=== PATIENT | male | born 1975 | race African-American/Black ===

== ENCOUNTER 2017-09-02 12:25 | Inpatient (IN) | payer SELFPAY ==
[~2017-09-02] VITALS: Ht 188 cm; Wt 90.7 kg
[~2017-09-02 12:25] MED LIST: INSU3INS6 SUBCUT; METO-396 PO
[2017-09-02 14:25] LABS: BASOPHILS % 1.8 % (0.0-2.0); EOSINOPHILS % 1.5 % (0.0-5.0); HEMATOCRIT. 25.6 % (42.0-52.0); HEMOGLOBIN. 8.4 g/dL (14.0-18.0); LYMPHOCYTES % 20.9 % (20.0-50.0); MEAN CORPUSCULAR HEMOGLOBIN 26.8 pg (28.0-32.0); MEAN CORPUSCULAR VOLUME 81.5 fL (80.0-94.0); MEAN PLATELET VOLUME 8.9 fl (7.4-10.4); MONOCYTES % 6.7 % (2.0-8.0); NEUTROPHILS % 69.1 % (40.0-76.0); PLATELET 221 x1000/uL (130-400); RED BLOOD CELL COUNT 3.14 mill/uL (4.7-6.1); RED CELL DISTRIBUTION WIDTH 12.9 % (11.6-14.6)
[2017-09-02 14:28] LABS: CHLORIDE 109 mEq/L (98-107)
[2017-09-02] MEDS ORDERED: SODIUM CHLORIDE 0.9% 1,000 ML IV ONE (15:15)
[2017-09-02] MEDS ORDERED: TRAMADOL 50MG TABLET PO PRN (15:30)
[2017-09-02] MEDS ORDERED: IPRATROPIUM/ALBUTEROL 0.5-3(2.5)MG/3ML NEB INH PRN (15:30)
[2017-09-02] MEDS ORDERED: CLONIDINE 0.1MG TABLET PO PRN (15:30)
[2017-09-02] MEDS ORDERED: ACETAMINOPHEN 325MG TABLET PO PRN (15:30)
[2017-09-02] MEDS ORDERED: DOCUSATE SODIUM 100MG CAPSULE PO PRN (15:30)
[2017-09-02] MEDS ORDERED: NA PHOS,M-B/NA PHOS,DI-BA ENEMA 118ML PR PRN (15:30)
[2017-09-02] MEDS ORDERED: NITROGLYCERIN 0.4MG TABLET SL SL PRN (15:30)
[2017-09-02] MEDS ORDERED: LORAZEPAM 0.5MG TABLET PO PRN (15:30)
[2017-09-02] MEDS ORDERED: DEXTROSE 50% WATER 50ML SYRINGE IV PRN (15:30)
[2017-09-02] MEDS ORDERED: GUAIFENESIN 200MG/10ML SUGAR FREE UDC PO PRN (15:30)
[2017-09-02] MEDS ORDERED: MAGNESIUM/ALUMINUM HYDROXIDE/SIMETHICONE 30ML UDC PO PRN (15:30)
[2017-09-02] MEDS ORDERED: ONDANSETRON HCL 4MG/2ML VIAL IV PRN (15:30)
[2017-09-02] MEDS ORDERED: DIPHENHYDRAMINE 50MG/ML VIAL IV PRN (15:30)
[2017-09-02 16:10] LABS: PHOSPHORUS 5.6 mg/dL (2.5-4.9)
[2017-09-02 16:39] LABS: VITAMIN B12 SERUM > 2000.0 pg/mL (211-911)
[2017-09-02] MEDS: SEVELAMER CARBONATE 800 MG TABLET PO SCH ×2 (17:00→17:50)
[2017-09-02] MEDS: BLOOD SUGAR DIAGNOSTIC STRIP TEST SCH ×2 (17:00→20:48)
[2017-09-02 17:35] VITALS: BP 165/79
[2017-09-02] MEDS: INSULIN LISPRO 100 UNITS/ML SUBCUT SCH ×2 (17:50→21:33)
[2017-09-02] MEDS ORDERED: REN800 PO (18:26)
[2017-09-02] MEDS ORDERED: PRO1 PO (18:26)
[2017-09-02 20:00] VITALS: BP 162/89
[2017-09-02] MEDS ORDERED: ENOXAPARIN 40MG/0.4ML SYR SUBCUT SCH (20:00)
[2017-09-02] MEDS: AMLODIPINE 10MG TABLET PO SCH (20:45)
[2017-09-02] MEDS: ENOXAPARIN 30MG/0.3ML SYR SUBCUT SCH (20:46)
[2017-09-02] MEDS ORDERED: ZOLPIDEM TARTRATE 5MG TABLET PO PRN (21:00)
[2017-09-02] MEDS ORDERED: METOPROLOL TARTRATE 25MG TABLET PO SCH (21:00)
[2017-09-02] MEDS: FAMOTIDINE 20MG TABLET PO SCH (21:00)
[2017-09-02] MEDS: HYDRALAZINE HCL 50MG TABLET PO SCH (21:39)
[2017-09-03] VITALS: BP 127/72
[2017-09-03 04:00] VITALS: BP 127/72
[2017-09-03] MEDS: HYDRALAZINE HCL 50MG TABLET PO SCH ×3 (05:48→21:19)
[2017-09-03] MEDS: BLOOD SUGAR DIAGNOSTIC STRIP TEST SCH ×4 (06:35→21:00)
[2017-09-03] MEDS: INSULIN LISPRO 100 UNITS/ML SUBCUT SCH ×4 (07:50→21:31)
[2017-09-03 08:00] VITALS: BP 133/71
[2017-09-03] MEDS: FAMOTIDINE 20MG TABLET PO SCH ×2 (10:00→21:19)
[2017-09-03] MEDS: SEVELAMER CARBONATE 800 MG TABLET PO SCH ×3 (10:00→18:03)
[2017-09-03] MEDS: FOLIC ACID/VITAMIN B COMP W-C TABLET PO SCH (10:01)
[2017-09-03] MEDS: AMLODIPINE 10MG TABLET PO SCH (10:01)
[2017-09-03 12:00] VITALS: BP 127/65
[2017-09-03 16:00] VITALS: BP 106/61
[2017-09-03 20:00] VITALS: BP 122/67
[2017-09-03] MEDS ORDERED: EPOETIN ALFA 10000UNITS/ML VIAL SUBCUT NR (21:00)
[2017-09-03] MEDS: ENOXAPARIN 30MG/0.3ML SYR SUBCUT SCH (21:20)
[2017-09-04] VITALS: BP 131/70
[2017-09-04 04:00] VITALS: BP 142/74
[2017-09-04 04:58] LABS: CLARITY URINE CLEAR (CLEAR); COLOR URINE YELLOW (YELLOW); KETONES URINE NEGATIVE (NEGATIVE); LEUKOCYTE ESTERASE URINE NEGATIVE (NEGATIVE); NITRITE URINE NEGATIVE (NEGATIVE); OCCULT BLOOD URINE NEGATIVE (NEGATIVE); PROTEIN URINE 4+ (NEGATIVE); SPECIFIC GRAVITY URINE 1.014 (1.005-1.030); UROBILINOGEN URINE 0.2 E.U./dL (0.2-1.0)
[2017-09-04] MEDS: HYDRALAZINE HCL 50MG TABLET PO SCH (05:39)
[2017-09-04 07:03] LABS: PARTIAL THROMBOPLASTIN TIME 27.5 sec (23.4-31.0); PROTHROMBIN TIME 10.8 sec (9.4-11.6)
[2017-09-04 07:32] LABS: PHOSPHORUS 4.9 mg/dL (2.5-4.9)
[2017-09-04 07:36] LABS: BASOPHILS % 1.4 % (0.0-2.0); EOSINOPHILS % 2.5 % (0.0-5.0); HEMATOCRIT. 25.1 % (42.0-52.0); HEMOGLOBIN. 8.2 g/dL (14.0-18.0); LYMPHOCYTES % 26.8 % (20.0-50.0); MEAN CORPUSCULAR HEMOGLOBIN 26.5 pg (28.0-32.0); MEAN CORPUSCULAR VOLUME 80.9 fL (80.0-94.0); MEAN PLATELET VOLUME 9.5 fl (7.4-10.4); MONOCYTES % 8.1 % (2.0-8.0); NEUTROPHILS % 61.2 % (40.0-76.0); PLATELET 229 x1000/uL (130-400); RED CELL DISTRIBUTION WIDTH 12.9 % (11.6-14.6)
[2017-09-04] MEDS: INSULIN LISPRO 100 UNITS/ML SUBCUT SCH (07:50)
[2017-09-04 08:00] VITALS: BP 131/67
[2017-09-04] MEDS: SEVELAMER CARBONATE 800 MG TABLET PO SCH (08:44)
[2017-09-04] MEDS: FAMOTIDINE 20MG TABLET PO SCH (08:44)
[2017-09-04] MEDS: FOLIC ACID/VITAMIN B COMP W-C TABLET PO SCH (08:44)
[2017-09-04] MEDS: AMLODIPINE 10MG TABLET PO SCH (08:44)
[2017-09-04] MEDS: BLOOD SUGAR DIAGNOSTIC STRIP TEST SCH (08:45)
[2017-09-04 11:56] VITALS: BP 130/61
== END 2017-09-04 13:30 | disposition home or self-care (01) | DRG 469 ==
LOC: ER 12:25 → 6WST 15:18 → EDBEDREQ 15:21 → SUPCPDRO 15:29 → ENRESERV 15:30 → 6WST 09-03 21:58
PROVIDERS: ADMIT Internal Medicine; ATTEND Internal Medicine
DX: N17.0 Acute kidney failure with tubular necrosis (principal); I12.0 Hypertensive chronic kidney disease with stage 5 chronic kidney disease or end stage renal disease; E11.21 Type 2 diabetes mellitus with diabetic nephropathy; E44.0 Moderate protein-calorie malnutrition; E11.22 Type 2 diabetes mellitus with diabetic chronic kidney disease; D64.9 Anemia, unspecified; J06.9 Acute upper respiratory infection, unspecified; H53.8 Other visual disturbances; N18.5 Chronic kidney disease, stage 5; E83.51 Hypocalcemia; Z83.3 Family history of diabetes mellitus; Z82.49 Family history of ischemic heart disease and other diseases of the circulatory system; Z68.25 Body mass index [BMI] 25.0-25.9, adult; Z88.8 Allergy status to other drugs, medicaments and biological substances
CPT/HCPCS: 36415; 71045; 76770; 80048; 80053; 80061; 81003; 82550; 82607; 82728; 82746; 82962; 83036; 83540; 83550; 83735; 84100; 85025; 85610; 85730; 93005; 93306; 93970; 99285; J0885; J1650; J1815; J7030

== ENCOUNTER 2018-02-19 20:20 | Inpatient (IN) | payer MEDICAID, OTHER ==
[~2018-02-19] VITALS: Ht 188 cm; Wt 93.4 kg
[~2018-02-19 20:20] MED LIST changes: -METO-396 PO; +PRO1 PO; +REN800 PO
[2018-02-19] MEDS ORDERED: IPRATROPIUM/ALBUTEROL 0.5-3(2.5)MG/3ML NEB HHN ONE (21:15)
[2018-02-19] MEDS ORDERED: ASPIRIN 81MG TABLET PO ONE (21:15)
[2018-02-19] MEDS ORDERED: FUROSEMIDE 40MG/4ML VIAL IV ONE (21:15)
[2018-02-19 21:42] LABS: CHLORIDE 94 mEq/L (98-107)
[2018-02-19 21:43] LABS: BASOPHILS % 1.1 % (0.0-2.0); EOSINOPHILS % 2.5 % (0.0-5.0); HEMATOCRIT. 26.4 % (42.0-52.0); HEMOGLOBIN. 8.9 g/dL (14.0-18.0); MEAN CORPUSCULAR HEMOGLOBIN 27.6 pg (28.0-32.0); MEAN CORPUSCULAR VOLUME 81.8 fL (80.0-94.0); MEAN PLATELET VOLUME 9.1 fl (7.4-10.4); MONOCYTES % 8.3 % (2.0-8.0); NEUTROPHILS % 76.1 % (40.0-76.0); PLATELET 254 x1000/uL (130-400); RED BLOOD CELL COUNT 3.22 mill/uL (4.7-6.1); RED CELL DISTRIBUTION WIDTH 13.6 % (11.6-14.6)
[2018-02-19 21:46] LABS: ETHANOL BLOOD < 10 mg/dL
[2018-02-19 21:48] LABS: INR 1.1; PARTIAL THROMBOPLASTIN TIME 29.7 sec (23.4-31.0); PROTHROMBIN TIME 10.6 sec (9.1-11.1)
[2018-02-20] MEDS ORDERED: NA PHOS,M-B/NA PHOS,DI-BA ENEMA 118ML PR PRN (00:30)
[2018-02-20] MEDS ORDERED: ACETAMINOPHEN 650MG SUPP PR PRN (00:30)
[2018-02-20] MEDS ORDERED: DEXTROSE 50% WATER 50ML SYRINGE IV PRN (00:30)
[2018-02-20] MEDS ORDERED: MAGNESIUM/ALUMINUM HYDROXIDE/SIMETHICONE 30ML UDC PO PRN (00:30)
[2018-02-20] MEDS ORDERED: ACETAMINOPHEN 650MG/20.3ML UDC GT PRN (00:30)
[2018-02-20] MEDS: CLONIDINE 0.1MG TABLET PO PRN ×2 (02:54→20:09)
[2018-02-20 04:00] VITALS: BP 146/101
[2018-02-20 04:55] LABS: CLARITY URINE CLEAR (CLEAR); COLOR URINE YELLOW (YELLOW); KETONES URINE NEGATIVE (NEGATIVE); LEUKOCYTE ESTERASE URINE NEGATIVE (NEGATIVE); NITRITE URINE NEGATIVE (NEGATIVE); OCCULT BLOOD URINE 1+ (NEGATIVE); PH URINE 6.5 (4.5-8.0); PROTEIN URINE 3+ (NEGATIVE); UROBILINOGEN URINE 0.2 E.U./dL (0.2-1.0)
[2018-02-20 05:13] LABS: *AMPHETAMINES SCREEN URINE NEGATIVE (NEGATIVE); *BARBITURATES SCREEN URINE NEGATIVE (NEGATIVE); *BENZODIAZEPINES SCREEN URINE NEGATIVE (NEGATIVE); *COCAINE SCREEN URINE NEGATIVE (NEGATIVE)
[2018-02-20 05:14] LABS: CANNABINOID URINE SCREEN NEGATIVE (NEGATIVE); METHADONE URINE SCREEN NEGATIVE (NEGATIVE); OPIATES URINE SCREEN NEGATIVE (NEGATIVE); PHENCYCLIDINE URINE SCREEN NEGATIVE (NEGATIVE)
[2018-02-20] MEDS: SODIUM CHLORIDE 0.9% INJ 3ML FLUSH IVF SCH ×3 (06:00→20:52)
[2018-02-20] MEDS: BLOOD SUGAR DIAGNOSTIC STRIP TEST SCH ×4 (06:50→20:48)
[2018-02-20] MEDS: INSULIN LISPRO 100 UNITS/ML SUBCUT SCH ×5 (06:50→20:53)
[2018-02-20 08:00] VITALS: BP 142/91
[2018-02-20] MEDS: CALCITRIOL 0.25MCG CAPSULE PO SCH (09:15)
[2018-02-20] MEDS: FOLIC ACID/VITAMIN B COMP W-C TABLET PO SCH (09:15)
[2018-02-20 10:00] VITALS: BP 142/91
[2018-02-20] MEDS ORDERED: LIDOCAINE HCL 1% 20ML VIAL (Pyxis) INJ ONE (10:13)
[2018-02-20 11:35] LABS: CREATINE KINASE MB FRACTION 2.7 ng/mL (0.5-3.6)
[2018-02-20 12:00] VITALS: BP 147/84
[2018-02-20] MEDS: CALCIUM ACETATE 667MG CAPSULE PO SCH ×2 (13:27→17:40)
[2018-02-20 16:00] VITALS: BP 177/95
[2018-02-20 17:31] LABS: CREATINE KINASE MB FRACTION 2.6 ng/mL (0.5-3.6)
[2018-02-20 20:00] VITALS: BP 183/95
[2018-02-20] MEDS: NIFEDIPINE XL 60MG TAB PO SCH (22:00)
[2018-02-20] MEDS ORDERED: DESMOPRESSIN ACETATE IVPB 24 MCG in SODIUM CHLORIDE 0.9% 50 ML IV SCH (23:00)
[2018-02-21] VITALS: BP 180/100
[2018-02-21] MEDS: CLONIDINE 0.1MG TABLET PO PRN ×2 (02:55→20:11)
[2018-02-21] MEDS: ACETAMINOPHEN 325MG TABLET PO PRN ×2 (03:56→20:11)
[2018-02-21 04:00] VITALS: BP 143/64
[2018-02-21] MEDS: BLOOD SUGAR DIAGNOSTIC STRIP TEST SCH ×4 (06:02→20:03)
[2018-02-21] MEDS: SODIUM CHLORIDE 0.9% INJ 3ML FLUSH IVF SCH ×3 (06:03→22:00)
[2018-02-21] MEDS: INSULIN LISPRO 100 UNITS/ML SUBCUT SCH ×4 (06:04→20:14)
[2018-02-21 06:43] LABS: BASOPHILS % 0.8 % (0.0-2.0); HEMATOCRIT. 22.9 % (42.0-52.0); HEMOGLOBIN. 7.9 g/dL (14.0-18.0); LYMPHOCYTES % 8.8 % (20.0-50.0); MEAN PLATELET VOLUME 9.6 fl (7.4-10.4); MONOCYTES % 9.4 % (2.0-8.0); PLATELET 234 x1000/uL (130-400); RED BLOOD CELL COUNT 2.83 mill/uL (4.7-6.1); RED CELL DISTRIBUTION WIDTH 13.7 % (11.6-14.6)
[2018-02-21 07:08] LABS: CHLORIDE 102 mEq/L (98-107)
[2018-02-21 07:35] LABS: HDL CHOLESTEROL 65 mg/dL (40-59)
[2018-02-21 07:36] LABS: LDL CHOLESTEROL 114 mg/dL (5-100)
[2018-02-21 08:00] VITALS: BP 130/65
[2018-02-21] MEDS: IPRATROPIUM/ALBUTEROL 0.5-3(2.5)MG/3ML NEB INH PRN (09:22)
[2018-02-21] MEDS: CALCITRIOL 0.25MCG CAPSULE PO SCH (09:49)
[2018-02-21] MEDS: FOLIC ACID/VITAMIN B COMP W-C TABLET PO SCH (09:49)
[2018-02-21] MEDS: CALCIUM ACETATE 667MG CAPSULE PO SCH ×3 (09:49→17:45)
[2018-02-21 12:00] VITALS: BP 158/84
[2018-02-21] MEDS: HYDROCODONE/ACETAMINOPHEN 5/325MG TABLET PO PRN (12:56)
[2018-02-21] MEDS: CEFTRIAXONE 1 G PREMIX 50 ML IV SCH (12:56)
[2018-02-21] MEDS ORDERED: SODIUM BICARBONATE 4% (2.4MEQ) 5ML VIAL IV ONE (15:31)
[2018-02-21] MEDS ORDERED: LIDOCAINE HCL 1% 20ML VIAL (Pyxis) INJ ONE (15:31)
[2018-02-21 16:40] VITALS: BP 156/84
[2018-02-21 20:00] VITALS: BP 170/83
[2018-02-21] MEDS: NIFEDIPINE XL 60MG TAB PO SCH (20:11)
[2018-02-22] VITALS: BP 163/77
[2018-02-22] MEDS: ALBUTEROL (0.083%) 2.5MG/3ML NEB HHN SCH ×4 (01:22→21:23)
[2018-02-22] MEDS: EPOETIN ALFA 4000UNITS/ML VIAL SUBCUT SCH (01:26)
[2018-02-22 04:00] VITALS: BP 148/73
[2018-02-22] MEDS: SODIUM CHLORIDE 0.9% INJ 3ML FLUSH IVF SCH ×3 (04:32→22:00)
[2018-02-22] MEDS: HYDROCODONE/ACETAMINOPHEN 5/325MG TABLET PO PRN ×2 (04:32→17:07)
[2018-02-22] MEDS: BLOOD SUGAR DIAGNOSTIC STRIP TEST SCH ×4 (06:30→21:04)
[2018-02-22 06:34] LABS: HEMATOCRIT. 21.4 % (42.0-52.0); HEMOGLOBIN. 7.2 g/dL (14.0-18.0); MEAN CORPUSCULAR HEMOGLOBIN 27.5 pg (28.0-32.0); MEAN CORPUSCULAR VOLUME 82.2 fL (80.0-94.0); MEAN PLATELET VOLUME 9.5 fl (7.4-10.4); PLATELET 210 x1000/uL (130-400); RED BLOOD CELL COUNT 2.61 mill/uL (4.7-6.1); RED CELL DISTRIBUTION WIDTH 13.1 % (11.6-14.6)
[2018-02-22] MEDS: INSULIN LISPRO 100 UNITS/ML SUBCUT SCH ×4 (06:41→21:15)
[2018-02-22 07:23] LABS: PLATELET ESTIMATE NORMAL
[2018-02-22 08:00] VITALS: BP 109/55
[2018-02-22] MEDS: CALCIUM ACETATE 667MG CAPSULE PO SCH ×3 (09:35→16:50)
[2018-02-22] MEDS: FOLIC ACID/VITAMIN B COMP W-C TABLET PO SCH (09:35)
[2018-02-22] MEDS: CALCITRIOL 0.25MCG CAPSULE PO SCH (09:35)
[2018-02-22 12:00] VITALS: BP 128/62
[2018-02-22] MEDS: CEFTRIAXONE 1 G PREMIX 50 ML IV SCH (12:06)
[2018-02-22 16:00] VITALS: BP 140/71
[2018-02-22] MEDS: IPRATROPIUM/ALBUTEROL 0.5-3(2.5)MG/3ML NEB INH PRN (17:39)
[2018-02-22 20:06] VITALS: BP 139/68
[2018-02-22] MEDS ORDERED: VANCOMYCIN 2,000 MG in DEXT 5% WATER 500 ML IV SCH (21:00)
[2018-02-22] MEDS: NIFEDIPINE XL 60MG TAB PO SCH (21:04)
[2018-02-23] VITALS (9 sets, daily range): BP systolic 124–160; BP diastolic 60–88
[2018-02-23] MEDS: DIPHENHYDRAMINE 50MG/ML VIAL IV PRN ×2 (00:19→23:22)
[2018-02-23] MEDS: ACETAMINOPHEN 325MG TABLET PO PRN ×3 (00:19→23:30)
[2018-02-23] MEDS: ALBUTEROL (0.083%) 2.5MG/3ML NEB HHN SCH ×4 (02:33→21:26)
[2018-02-23] MEDS: BLOOD SUGAR DIAGNOSTIC STRIP TEST SCH ×4 (06:25→21:02)
[2018-02-23] MEDS: INSULIN LISPRO 100 UNITS/ML SUBCUT SCH ×5 (06:26→21:30)
[2018-02-23] MEDS: SODIUM CHLORIDE 0.9% INJ 3ML FLUSH IVF SCH ×3 (06:28→21:03)
[2018-02-23 07:16] LABS: BASOPHILS % 1.3 % (0.0-2.0); EOSINOPHILS % 1.2 % (0.0-5.0); LYMPHOCYTES % 15.1 % (20.0-50.0); MEAN CORPUSCULAR HEMOGLOBIN 27.4 pg (28.0-32.0); MEAN CORPUSCULAR VOLUME 81.8 fL (80.0-94.0); MEAN PLATELET VOLUME 9.7 fl (7.4-10.4); MONOCYTES % 12.3 % (2.0-8.0); NEUTROPHILS % 70.1 % (40.0-76.0); PLATELET 218 x1000/uL (130-400); RED BLOOD CELL COUNT 2.45 mill/uL (4.7-6.1); RED CELL DISTRIBUTION WIDTH 13.2 % (11.6-14.6)
[2018-02-23 07:23] LABS: PHOSPHORUS 5.6 mg/dL (2.5-4.9)
[2018-02-23 07:41] LABS: HEMOGLOBIN. 6.7 g/dL (14.0-18.0)
[2018-02-23 07:42] LABS: HEMATOCRIT. 20.1 % (42.0-52.0)
[2018-02-23] MEDS: CALCITRIOL 0.25MCG CAPSULE PO SCH (08:29)
[2018-02-23] MEDS: CALCIUM ACETATE 667MG CAPSULE PO SCH ×3 (08:29→18:29)
[2018-02-23] MEDS: FOLIC ACID/VITAMIN B COMP W-C TABLET PO SCH (08:29)
[2018-02-23] MEDS: CEFTRIAXONE 1 G PREMIX 50 ML IV SCH (11:16)
[2018-02-23 13:23] LABS: HEMOGLOBIN 7.1 g/dL (14.0-18.0)
[2018-02-23] MEDS: DOCUSATE SODIUM 100MG CAPSULE PO PRN (15:14)
[2018-02-23] MEDS: CLONIDINE 0.1MG TABLET PO PRN (18:29)
[2018-02-23 20:26] LABS: HEMATOCRIT 22.7 % (42.0-52.0); HEMOGLOBIN 7.6 g/dL (14.0-18.0)
[2018-02-23] MEDS: NIFEDIPINE XL 60MG TAB PO SCH (21:02)
[2018-02-23] MEDS ORDERED: VANCOMYCIN 1500MG in DEXTROSE 5% WATER 250ML IV NR (22:00)
[2018-02-24] MEDS: ALBUTEROL (0.083%) 2.5MG/3ML NEB HHN SCH ×4 (01:00→20:56)
[2018-02-24 05:08] VITALS: BP 130/63
[2018-02-24 06:02] LABS: BASOPHILS % 1.2 % (0.0-2.0); LYMPHOCYTES % 15.1 % (20.0-50.0); MEAN CORPUSCULAR HEMOGLOBIN 27.2 pg (28.0-32.0); MEAN CORPUSCULAR VOLUME 82.3 fL (80.0-94.0); MEAN PLATELET VOLUME 9.4 fl (7.4-10.4); MONOCYTES % 12.7 % (2.0-8.0); PLATELET 248 x1000/uL (130-400); RED BLOOD CELL COUNT 2.92 mill/uL (4.7-6.1); RED CELL DISTRIBUTION WIDTH 13.4 % (11.6-14.6)
[2018-02-24] MEDS: INSULIN LISPRO 100 UNITS/ML SUBCUT SCH ×4 (06:17→21:18)
[2018-02-24] MEDS: SODIUM CHLORIDE 0.9% INJ 3ML FLUSH IVF SCH ×3 (06:17→21:18)
[2018-02-24] MEDS: BLOOD SUGAR DIAGNOSTIC STRIP TEST SCH ×4 (06:18→21:18)
[2018-02-24 06:31] LABS: PHOSPHORUS 5.5 mg/dL (2.5-4.9)
[2018-02-24] MEDS: CALCIUM ACETATE 667MG CAPSULE PO SCH ×3 (07:40→17:15)
[2018-02-24 08:00] VITALS: BP 128/70
[2018-02-24] MEDS: CALCITRIOL 0.25MCG CAPSULE PO SCH (09:01)
[2018-02-24] MEDS: FOLIC ACID/VITAMIN B COMP W-C TABLET PO SCH (09:01)
[2018-02-24] MEDS: CEFTRIAXONE 1 G PREMIX 50 ML IV SCH (11:40)
[2018-02-24] MEDS: ACETAMINOPHEN 325MG TABLET PO PRN (11:41)
[2018-02-24 12:00] VITALS: BP 143/69
[2018-02-24 15:54] LABS: HEPATITIS B SURFACE AB < 3.1 mIU/mL
[2018-02-24 16:00] VITALS: BP 144/71
[2018-02-24] MEDS ORDERED: NEPVIT PO (16:17)
[2018-02-24] MEDS ORDERED: ATOR10TA MT (16:17)
[2018-02-24] MEDS ORDERED: CALC0.253 PO (16:17)
[2018-02-24] MEDS ORDERED: CALC667C PO (16:17)
[2018-02-24 19:59] VITALS: BP 142/74
[2018-02-24] MEDS: DIPHENHYDRAMINE 50MG/ML VIAL IV PRN (21:17)
[2018-02-24] MEDS: NIFEDIPINE XL 60MG TAB PO SCH (21:17)
[2018-02-24] MEDS: EPOETIN ALFA 4000UNITS/ML VIAL SUBCUT SCH (21:17)
[2018-02-24 23:48] VITALS: BP 152/80
[2018-02-25] MEDS: DIPHENHYDRAMINE 50MG/ML VIAL IV PRN ×2 (02:10→23:51)
[2018-02-25] MEDS: ALBUTEROL (0.083%) 2.5MG/3ML NEB HHN SCH ×4 (02:10→21:00)
[2018-02-25 04:55] VITALS: BP 135/62
[2018-02-25] MEDS: INSULIN LISPRO 100 UNITS/ML SUBCUT SCH ×4 (06:19→20:44)
[2018-02-25] MEDS: SODIUM CHLORIDE 0.9% INJ 3ML FLUSH IVF SCH ×3 (06:19→20:44)
[2018-02-25] MEDS: BLOOD SUGAR DIAGNOSTIC STRIP TEST SCH ×4 (06:19→20:44)
[2018-02-25 07:31] LABS: BASOPHILS % 1.7 % (0.0-2.0); EOSINOPHILS % 4.6 % (0.0-5.0); HEMATOCRIT. 23.6 % (42.0-52.0); HEMOGLOBIN. 7.9 g/dL (14.0-18.0); LYMPHOCYTES % 13.7 % (20.0-50.0); MEAN CORPUSCULAR HEMOGLOBIN 27.4 pg (28.0-32.0); MEAN CORPUSCULAR VOLUME 81.8 fL (80.0-94.0); MEAN PLATELET VOLUME 9.5 fl (7.4-10.4); PLATELET 275 x1000/uL (130-400); RED BLOOD CELL COUNT 2.89 mill/uL (4.7-6.1); RED CELL DISTRIBUTION WIDTH 13.6 % (11.6-14.6)
[2018-02-25 08:00] VITALS: BP 140/74
[2018-02-25] MEDS: CALCITRIOL 0.25MCG CAPSULE PO SCH (08:02)
[2018-02-25] MEDS: CALCIUM ACETATE 667MG CAPSULE PO SCH ×3 (08:02→19:15)
[2018-02-25] MEDS: FOLIC ACID/VITAMIN B COMP W-C TABLET PO SCH (08:02)
[2018-02-25 08:20] LABS: PHOSPHORUS 6.4 mg/dL (2.5-4.9)
[2018-02-25] MEDS: CEFTRIAXONE 1 G PREMIX 50 ML IV SCH (10:20)
[2018-02-25 12:00] VITALS: BP 164/83
[2018-02-25 16:00] VITALS: BP 176/92
[2018-02-25] MEDS ORDERED: SEVELAMER CARBONATE 800 MG TABLET PO SCH (17:40)
[2018-02-25 19:58] VITALS: BP 186/89
[2018-02-25] MEDS: NIFEDIPINE XL 60MG TAB PO SCH (20:44)
[2018-02-25] MEDS ORDERED: VANCOMYCIN 750 MG PREMIX 150 ML IV SCH (21:00)
[2018-02-25] MEDS: ACETAMINOPHEN 325MG TABLET PO PRN (23:06)
[2018-02-25] MEDS: ONDANSETRON HCL 4MG/2ML INJ IV PRN (23:51)
[2018-02-26] VITALS: BP 174/100
[2018-02-26] MEDS: CLONIDINE 0.1MG TABLET PO PRN (00:38)
[2018-02-26] MEDS: ALBUTEROL (0.083%) 2.5MG/3ML NEB HHN SCH ×4 (01:06→21:18)
[2018-02-26 04:00] VITALS: BP 136/62
[2018-02-26] MEDS: ACETAMINOPHEN 325MG TABLET PO PRN ×3 (05:50→23:48)
[2018-02-26] MEDS: SODIUM CHLORIDE 0.9% INJ 3ML FLUSH IVF SCH ×3 (05:50→20:44)
[2018-02-26] MEDS: INSULIN LISPRO 100 UNITS/ML SUBCUT SCH ×4 (05:51→20:43)
[2018-02-26] MEDS: BLOOD SUGAR DIAGNOSTIC STRIP TEST SCH ×4 (05:51→20:44)
[2018-02-26 06:44] LABS: PHOSPHORUS 5.2 mg/dL (2.5-4.9)
[2018-02-26 06:45] LABS: BASOPHILS % 2.1 % (0.0-2.0); EOSINOPHILS % 5.7 % (0.0-5.0); HEMATOCRIT. 22.7 % (42.0-52.0); HEMOGLOBIN. 7.7 g/dL (14.0-18.0); LYMPHOCYTES % 7.8 % (20.0-50.0); MEAN CORPUSCULAR HEMOGLOBIN 27.7 pg (28.0-32.0); MEAN CORPUSCULAR VOLUME 81.9 fL (80.0-94.0); MEAN PLATELET VOLUME 9.2 fl (7.4-10.4); MONOCYTES % 12.9 % (2.0-8.0); NEUTROPHILS % 71.5 % (40.0-76.0); PLATELET 273 x1000/uL (130-400); RED BLOOD CELL COUNT 2.77 mill/uL (4.7-6.1); RED CELL DISTRIBUTION WIDTH 13.3 % (11.6-14.6)
[2018-02-26 08:00] VITALS: BP 125/57
[2018-02-26] MEDS: FOLIC ACID/VITAMIN B COMP W-C TABLET PO SCH (09:35)
[2018-02-26] MEDS: CALCITRIOL 0.25MCG CAPSULE PO SCH (09:36)
[2018-02-26] MEDS: CEFTRIAXONE 1 G PREMIX 50 ML IV SCH (11:54)
[2018-02-26 12:00] VITALS: BP 131/62
[2018-02-26] MEDS: CALCIUM ACETATE 667MG CAPSULE PO SCH ×2 (12:50→17:33)
[2018-02-26] MEDS: ONDANSETRON HCL 4MG/2ML INJ IV PRN ×2 (13:34→23:35)
[2018-02-26] MEDS: DIPHENHYDRAMINE 50MG/ML VIAL IV PRN ×2 (13:34→22:36)
[2018-02-26 16:30] VITALS: BP 130/56
[2018-02-26 20:00] VITALS: BP 160/78
[2018-02-26] MEDS: NIFEDIPINE XL 60MG TAB PO SCH (20:42)
[2018-02-26] MEDS ORDERED: EPOETIN ALFA 4000UNITS/ML VIAL SUBCUT SCH (21:00)
[2018-02-27] VITALS: BP 181/86
[2018-02-27] MEDS: ALBUTEROL (0.083%) 2.5MG/3ML NEB HHN SCH ×4 (02:13→20:21)
[2018-02-27 04:00] VITALS: BP 129/51
[2018-02-27] MEDS: GUAIFENESIN 200MG/10ML SUGAR FREE UDC PO PRN ×2 (05:25→09:23)
[2018-02-27] MEDS: ACETAMINOPHEN 325MG TABLET PO PRN ×2 (05:26→19:56)
[2018-02-27] MEDS: SODIUM CHLORIDE 0.9% INJ 3ML FLUSH IVF SCH ×3 (05:26→21:30)
[2018-02-27] MEDS: INSULIN LISPRO 100 UNITS/ML SUBCUT SCH ×4 (06:26→21:30)
[2018-02-27] MEDS: BLOOD SUGAR DIAGNOSTIC STRIP TEST SCH ×4 (06:26→21:30)
[2018-02-27 06:41] LABS: HEMATOCRIT. 22.7 % (42.0-52.0); HEMOGLOBIN. 7.6 g/dL (14.0-18.0); MEAN CORPUSCULAR HEMOGLOBIN 27.2 pg (28.0-32.0); MEAN CORPUSCULAR VOLUME 81.6 fL (80.0-94.0); MEAN PLATELET VOLUME 9.1 fl (7.4-10.4); PLATELET 263 x1000/uL (130-400); RED BLOOD CELL COUNT 2.78 mill/uL (4.7-6.1); RED CELL DISTRIBUTION WIDTH 13.2 % (11.6-14.6)
[2018-02-27 07:24] LABS: HEPATITIS B SURFACE ANTIGEN NEGATIVE
[2018-02-27 08:19] VITALS: BP 134/67
[2018-02-27] MEDS: FOLIC ACID/VITAMIN B COMP W-C TABLET PO SCH (09:23)
[2018-02-27] MEDS: CALCITRIOL 0.25MCG CAPSULE PO SCH (09:23)
[2018-02-27] MEDS: CALCIUM ACETATE 667MG CAPSULE PO SCH ×3 (09:23→17:29)
[2018-02-27] MEDS: GUAIFENESIN/DM 600MG/30MG ER TAB 12HR PO SCH ×2 (09:47→20:02)
[2018-02-27 10:35] LABS: ATYPICAL LYMPHOCYTES 1; PLATELET ESTIMATE NORMAL
[2018-02-27] MEDS: CLONIDINE 0.1MG TABLET PO PRN (12:55)
[2018-02-27] MEDS: AZITHROMYCIN 500 MG TABLET PO SCH (12:55)
[2018-02-27 16:45] VITALS: BP 166/89
[2018-02-27] MEDS: DOCUSATE SODIUM 100MG CAPSULE PO PRN (17:29)
[2018-02-27 20:00] VITALS: BP 134/74
[2018-02-27] MEDS: NIFEDIPINE XL 60MG TAB PO SCH (20:02)
[2018-02-28] VITALS: BP 149/77
[2018-02-28] MEDS: ALBUTEROL (0.083%) 2.5MG/3ML NEB HHN SCH ×4 (00:09→21:48)
[2018-02-28 04:00] VITALS: BP 160/84
[2018-02-28] MEDS: DOCUSATE SODIUM 100MG CAPSULE PO PRN ×2 (04:47→18:29)
[2018-02-28] MEDS: SODIUM CHLORIDE 0.9% INJ 3ML FLUSH IVF SCH ×3 (05:37→22:14)
[2018-02-28] MEDS: BLOOD SUGAR DIAGNOSTIC STRIP TEST SCH ×4 (06:17→20:28)
[2018-02-28] MEDS: INSULIN LISPRO 100 UNITS/ML SUBCUT SCH ×4 (06:17→20:29)
[2018-02-28 06:49] LABS: HEMATOCRIT. 24.7 % (42.0-52.0); HEMOGLOBIN. 8.2 g/dL (14.0-18.0); MEAN CORPUSCULAR HEMOGLOBIN 27.6 pg (28.0-32.0); MEAN PLATELET VOLUME 8.9 fl (7.4-10.4); PLATELET 305 x1000/uL (130-400); RED BLOOD CELL COUNT 2.98 mill/uL (4.7-6.1); RED CELL DISTRIBUTION WIDTH 13.7 % (11.6-14.6)
[2018-02-28 07:00] LABS: INR 1.1; PARTIAL THROMBOPLASTIN TIME 30.4 sec (23.4-31.0); PROTHROMBIN TIME 10.7 sec (9.1-11.1)
[2018-02-28 07:10] LABS: CHLORIDE 101 mEq/L (98-107)
[2018-02-28 08:28] VITALS: BP 170/82
[2018-02-28] MEDS: AZITHROMYCIN 500 MG TABLET PO SCH (08:37)
[2018-02-28] MEDS: CALCITRIOL 0.25MCG CAPSULE PO SCH (08:37)
[2018-02-28] MEDS: CALCIUM ACETATE 667MG CAPSULE PO SCH ×3 (08:37→16:55)
[2018-02-28] MEDS: GUAIFENESIN/DM 600MG/30MG ER TAB 12HR PO SCH ×2 (08:37→20:28)
[2018-02-28] MEDS: ACETAMINOPHEN 325MG TABLET PO PRN ×2 (08:37→20:26)
[2018-02-28] MEDS: CLONIDINE 0.1MG TABLET PO PRN ×2 (08:37→20:28)
[2018-02-28] MEDS: FOLIC ACID/VITAMIN B COMP W-C TABLET PO SCH (08:37)
[2018-02-28] MEDS ORDERED: SORBITOL 70% SOLN 30ML PO NR (09:45)
[2018-02-28 09:59] VITALS: BP 125/57
[2018-02-28] MEDS ORDERED: LIDOCAINE HCL 1% 20ML VIAL (Pyxis) INJ ONE (10:53)
[2018-02-28] MEDS ORDERED: LIDOCAINE HCL/EPINEPHRINE 1%-EPI 1:100,000 20 ML VIAL ONE (10:53)
[2018-02-28] MEDS ORDERED: HEPARIN 1000 UNITS/ML 10ML ONE (10:54)
[2018-02-28 13:29] LABS: PLATELET ESTIMATE NORMAL
[2018-02-28] MEDS ORDERED: CEFAZOLIN 1000MG PREMIX 50 ML IV NR (13:30)
[2018-02-28] MEDS: GUAIFENESIN/CODEINE 100-10MG/5ML UDC PO PRN (15:15)
[2018-02-28 16:00] VITALS: BP 150/87
[2018-02-28] MEDS: CLONIDINE 0.1MG TABLET PO SCH (16:56)
[2018-02-28 20:00] VITALS: BP 189/99
[2018-02-28] MEDS: NIFEDIPINE XL 60MG TAB PO SCH (20:27)
[2018-02-28] MEDS: EPOETIN ALFA 4000UNITS/ML VIAL SUBCUT SCH (20:29)
[2018-02-28] MEDS: DIPHENHYDRAMINE 50MG/ML VIAL IV PRN (22:14)
[2018-03-01] VITALS: BP 185/97
[2018-03-01] MEDS: ALBUTEROL (0.083%) 2.5MG/3ML NEB HHN SCH ×4 (01:19→20:49)
[2018-03-01 04:00] VITALS: BP 140/84
[2018-03-01] MEDS: SODIUM CHLORIDE 0.9% INJ 3ML FLUSH IVF SCH ×3 (06:35→21:03)
[2018-03-01] MEDS: INSULIN LISPRO 100 UNITS/ML SUBCUT SCH ×2 (06:36→21:04)
[2018-03-01] MEDS: ACETAMINOPHEN 325MG TABLET PO PRN ×2 (06:36→21:01)
[2018-03-01] MEDS: BLOOD SUGAR DIAGNOSTIC STRIP TEST SCH ×2 (06:36→21:03)
[2018-03-01 08:00] VITALS: BP 157/60
[2018-03-01 08:00] LABS: BASOPHILS % 2.3 % (0.0-2.0); EOSINOPHILS % 2.2 % (0.0-5.0); HEMATOCRIT. 25.4 % (42.0-52.0); HEMOGLOBIN. 8.4 g/dL (14.0-18.0); LYMPHOCYTES % 14.3 % (20.0-50.0); MEAN CORPUSCULAR HEMOGLOBIN 27.6 pg (28.0-32.0); MEAN PLATELET VOLUME 9.1 fl (7.4-10.4); MONOCYTES % 12.3 % (2.0-8.0); NEUTROPHILS % 68.9 % (40.0-76.0); PLATELET 319 x1000/uL (130-400); RED BLOOD CELL COUNT 3.06 mill/uL (4.7-6.1); RED CELL DISTRIBUTION WIDTH 13.4 % (11.6-14.6)
[2018-03-01] MEDS: DOCUSATE SODIUM 100MG CAPSULE PO SCH ×2 (10:17→16:24)
[2018-03-01] MEDS: FOLIC ACID/VITAMIN B COMP W-C TABLET PO SCH (10:17)
[2018-03-01] MEDS: CLONIDINE 0.1MG TABLET PO SCH ×3 (10:18→21:02)
[2018-03-01] MEDS: AZITHROMYCIN 500 MG TABLET PO SCH (10:18)
[2018-03-01] MEDS: GUAIFENESIN/DM 600MG/30MG ER TAB 12HR PO SCH ×2 (10:18→21:02)
[2018-03-01] MEDS: CALCIUM ACETATE 667MG CAPSULE PO SCH ×2 (10:19→16:23)
[2018-03-01] MEDS: CALCITRIOL 0.25MCG CAPSULE PO SCH (10:19)
[2018-03-01] MEDS ORDERED: SORBITOL 70% SOLN 30ML PO SCH (11:00)
[2018-03-01 11:22] LABS: PHOSPHORUS 5.4 mg/dL (2.5-4.9)
[2018-03-01 12:00] VITALS: BP 150/60
[2018-03-01 13:10] LABS: QFT MITOGEN VALUE 0.75 IU/mL (.); QFT TB GOLD PLUS Negative (Negative); QFT TB1 AG VALUE 0.17 IU/mL (.)
[2018-03-01 16:00] VITALS: BP 156/62
[2018-03-01 20:00] VITALS: BP 145/81
[2018-03-01] MEDS ORDERED: DEXTROSE 50% WATER 50ML SYRINGE IV PRN (21:00)
[2018-03-01] MEDS: NIFEDIPINE XL 60MG TAB PO SCH (21:02)
[2018-03-02] VITALS (7 sets, daily range): BP systolic 125–150; BP diastolic 58–79
[2018-03-02] MEDS: ALBUTEROL (0.083%) 2.5MG/3ML NEB HHN SCH ×4 (01:26→20:16)
[2018-03-02] MEDS: DIPHENHYDRAMINE 50MG/ML VIAL IV PRN ×2 (01:47→23:13)
[2018-03-02] MEDS: CLONIDINE 0.1MG TABLET PO SCH ×2 (06:19→09:51)
[2018-03-02] MEDS: SODIUM CHLORIDE 0.9% INJ 3ML FLUSH IVF SCH ×3 (06:19→21:40)
[2018-03-02] MEDS: BLOOD SUGAR DIAGNOSTIC STRIP TEST SCH ×2 (06:20→21:30)
[2018-03-02] MEDS: INSULIN LISPRO 100 UNITS/ML SUBCUT SCH ×4 (06:30→21:37)
[2018-03-02] MEDS: GUAIFENESIN/DM 600MG/30MG ER TAB 12HR PO SCH ×2 (09:49→21:29)
[2018-03-02] MEDS: AZITHROMYCIN 500 MG TABLET PO SCH (09:49)
[2018-03-02] MEDS: FOLIC ACID/VITAMIN B COMP W-C TABLET PO SCH (09:50)
[2018-03-02] MEDS: CALCITRIOL 0.25MCG CAPSULE PO SCH (09:50)
[2018-03-02] MEDS: DOCUSATE SODIUM 100MG CAPSULE PO SCH ×2 (09:50→17:50)
[2018-03-02] MEDS: IPRATROPIUM/ALBUTEROL 0.5-3(2.5)MG/3ML NEB INH PRN (09:56)
[2018-03-02] MEDS: DILTIAZEM HCL 60MG TABLET PO SCH ×2 (18:24→21:29)
[2018-03-02] MEDS: HYDRALAZINE HCL 100MG TABLET PO SCH (21:30)
[2018-03-03] VITALS: BP 121/74
[2018-03-03] MEDS: GUAIFENESIN/CODEINE 100-10MG/5ML UDC PO PRN (01:36)
[2018-03-03] MEDS: ALBUTEROL (0.083%) 2.5MG/3ML NEB HHN SCH ×4 (01:54→21:22)
[2018-03-03 04:00] VITALS: BP 130/80
[2018-03-03] MEDS: DILTIAZEM HCL 60MG TABLET PO SCH ×3 (06:34→22:05)
[2018-03-03] MEDS: SODIUM CHLORIDE 0.9% INJ 3ML FLUSH IVF SCH ×3 (06:34→22:09)
[2018-03-03] MEDS: BLOOD SUGAR DIAGNOSTIC STRIP TEST SCH ×4 (06:35→21:00)
[2018-03-03] MEDS: INSULIN LISPRO 100 UNITS/ML SUBCUT SCH ×4 (06:35→22:07)
[2018-03-03 07:54] LABS: BASOPHILS % 1.6 % (0.0-2.0); EOSINOPHILS % 5.4 % (0.0-5.0); HEMOGLOBIN. 7.2 g/dL (14.0-18.0); LYMPHOCYTES % 24.7 % (20.0-50.0); MEAN CORPUSCULAR HEMOGLOBIN 27.1 pg (28.0-32.0); MEAN PLATELET VOLUME 8.8 fl (7.4-10.4); MONOCYTES % 10.1 % (2.0-8.0); NEUTROPHILS % 58.2 % (40.0-76.0); PLATELET 289 x1000/uL (130-400); RED BLOOD CELL COUNT 2.65 mill/uL (4.7-6.1); RED CELL DISTRIBUTION WIDTH 14.1 % (11.6-14.6)
[2018-03-03 08:15] VITALS: BP 155/89
[2018-03-03 08:15] LABS: PHOSPHORUS 6.7 mg/dL (2.5-4.9)
[2018-03-03] MEDS: HYDRALAZINE HCL 100MG TABLET PO SCH ×2 (08:42→22:05)
[2018-03-03] MEDS: AZITHROMYCIN 500 MG TABLET PO SCH (09:04)
[2018-03-03] MEDS: DOCUSATE SODIUM 100MG CAPSULE PO SCH ×2 (09:04→17:42)
[2018-03-03] MEDS: CALCITRIOL 0.25MCG CAPSULE PO SCH (09:04)
[2018-03-03] MEDS: GUAIFENESIN/DM 600MG/30MG ER TAB 12HR PO SCH ×2 (09:04→22:09)
[2018-03-03] MEDS: FOLIC ACID/VITAMIN B COMP W-C TABLET PO SCH (09:04)
[2018-03-03] MEDS: CALCIUM ACETATE 667MG CAPSULE PO SCH ×4 (09:05→17:41)
[2018-03-03 11:58] VITALS: BP 147/78
[2018-03-03] MEDS ORDERED: HEPARIN SODIUM 1,000 UNIT/1ML VIAL IV NR (14:45)
[2018-03-03 16:00] VITALS: BP 141/61
[2018-03-03 20:00] VITALS: BP 162/90
[2018-03-03] MEDS: EPOETIN ALFA 4000UNITS/ML VIAL SUBCUT SCH (22:06)
[2018-03-04] VITALS: BP 125/60
[2018-03-04] MEDS: DIPHENHYDRAMINE 50MG/ML VIAL IV PRN ×3 (01:04→23:43)
[2018-03-04] MEDS: ALBUTEROL (0.083%) 2.5MG/3ML NEB HHN SCH ×4 (01:19→20:24)
[2018-03-04 04:00] VITALS: BP 166/85
[2018-03-04] MEDS: DILTIAZEM HCL 60MG TABLET PO SCH ×2 (05:22→14:00)
[2018-03-04] MEDS: SODIUM CHLORIDE 0.9% INJ 3ML FLUSH IVF SCH ×3 (05:22→21:25)
[2018-03-04] MEDS: BLOOD SUGAR DIAGNOSTIC STRIP TEST SCH ×4 (06:05→20:49)
[2018-03-04] MEDS: INSULIN LISPRO 100 UNITS/ML SUBCUT SCH ×4 (06:06→21:33)
[2018-03-04 07:08] LABS: BASOPHILS % 1.5 % (0.0-2.0); EOSINOPHILS % 3.9 % (0.0-5.0); HEMATOCRIT. 23.1 % (42.0-52.0); HEMOGLOBIN. 7.7 g/dL (14.0-18.0); LYMPHOCYTES % 17.7 % (20.0-50.0); MEAN CORPUSCULAR HEMOGLOBIN 27.4 pg (28.0-32.0); MEAN CORPUSCULAR VOLUME 82.2 fL (80.0-94.0); MEAN PLATELET VOLUME 8.8 fl (7.4-10.4); MONOCYTES % 9.5 % (2.0-8.0); NEUTROPHILS % 67.4 % (40.0-76.0); PLATELET 350 x1000/uL (130-400); RED BLOOD CELL COUNT 2.81 mill/uL (4.7-6.1)
[2018-03-04 08:00] VITALS: BP 157/80
[2018-03-04] MEDS: CALCITRIOL 0.25MCG CAPSULE PO SCH (08:50)
[2018-03-04] MEDS: GUAIFENESIN/DM 600MG/30MG ER TAB 12HR PO SCH ×2 (08:50→21:25)
[2018-03-04] MEDS: FOLIC ACID/VITAMIN B COMP W-C TABLET PO SCH (08:50)
[2018-03-04] MEDS: CALCIUM ACETATE 667MG CAPSULE PO SCH ×4 (08:51→17:40)
[2018-03-04] MEDS: DOCUSATE SODIUM 100MG CAPSULE PO SCH ×2 (08:51→17:00)
[2018-03-04] MEDS: HYDRALAZINE HCL 100MG TABLET PO SCH ×2 (08:51→21:26)
[2018-03-04] MEDS: AZITHROMYCIN 500 MG TABLET PO SCH (08:51)
[2018-03-04 12:00] VITALS: BP 123/75
[2018-03-04 16:00] VITALS: BP 167/82
[2018-03-04] MEDS: FUROSEMIDE 40MG TABLET PO SCH (17:42)
[2018-03-04] MEDS: GUAIFENESIN/CODEINE 100-10MG/5ML UDC PO PRN (17:42)
[2018-03-04 20:00] VITALS: BP 154/71
[2018-03-04] MEDS ORDERED: DILTIAZEM HCL 300MG CAPSULE SR 24HR PO SCH (21:00)
[2018-03-04] MEDS: DOCUSATE SODIUM 100MG CAPSULE PO PRN (21:25)
[2018-03-05] VITALS: BP 149/65
[2018-03-05] MEDS: ALBUTEROL (0.083%) 2.5MG/3ML NEB HHN SCH ×4 (01:54→22:38)
[2018-03-05 04:00] VITALS: BP 149/63
[2018-03-05] MEDS: BLOOD SUGAR DIAGNOSTIC STRIP TEST SCH ×4 (05:47→20:47)
[2018-03-05] MEDS: INSULIN LISPRO 100 UNITS/ML SUBCUT SCH ×4 (05:48→21:44)
[2018-03-05] MEDS: SODIUM CHLORIDE 0.9% INJ 3ML FLUSH IVF SCH ×3 (05:48→21:40)
[2018-03-05 07:29] LABS: BASOPHILS % 1.5 % (0.0-2.0); EOSINOPHILS % 3.2 % (0.0-5.0); HEMATOCRIT. 24.2 % (42.0-52.0); HEMOGLOBIN. 7.9 g/dL (14.0-18.0); LYMPHOCYTES % 13.5 % (20.0-50.0); MEAN CORPUSCULAR HEMOGLOBIN 26.8 pg (28.0-32.0); MEAN CORPUSCULAR VOLUME 82.5 fL (80.0-94.0); NEUTROPHILS % 72.8 % (40.0-76.0); PLATELET 384 x1000/uL (130-400); RED BLOOD CELL COUNT 2.93 mill/uL (4.7-6.1); RED CELL DISTRIBUTION WIDTH 14.3 % (11.6-14.6)
[2018-03-05] MEDS: CALCIUM ACETATE 667MG CAPSULE PO SCH ×3 (07:40→16:49)
[2018-03-05 08:00] VITALS: BP 161/77
[2018-03-05] MEDS: HYDRALAZINE HCL 100MG TABLET PO SCH ×2 (08:45→11:40)
[2018-03-05] MEDS ORDERED: SORBITOL 70% SOLN 30ML PO ONE (08:45)
[2018-03-05] MEDS: DOCUSATE SODIUM 100MG CAPSULE PO SCH ×2 (08:46→16:48)
[2018-03-05] MEDS: FUROSEMIDE 40MG TABLET PO SCH (08:46)
[2018-03-05] MEDS: FOLIC ACID/VITAMIN B COMP W-C TABLET PO SCH (08:46)
[2018-03-05] MEDS: GUAIFENESIN/DM 600MG/30MG ER TAB 12HR PO SCH ×2 (08:46→20:39)
[2018-03-05] MEDS: CALCITRIOL 0.25MCG CAPSULE PO SCH (08:47)
[2018-03-05] MEDS ORDERED: SORBITOL 70% SOLN 30ML PO NR (09:15)
[2018-03-05 09:58] LABS: PHOSPHORUS 4.9 mg/dL (2.5-4.9)
[2018-03-05 10:07] VITALS: BP 161/77
[2018-03-05 12:17] VITALS: BP 167/78
[2018-03-05 20:00] VITALS: BP 148/77
[2018-03-05] MEDS ORDERED: DILTIAZEM HCL 180MG CAPSULE CD 24HR PO SCH (21:00)
[2018-03-05] MEDS: ACETAMINOPHEN 325MG TABLET PO PRN (22:08)
[2018-03-05] MEDS: DIPHENHYDRAMINE 50MG/ML VIAL IV PRN (22:09)
[2018-03-05] MEDS ORDERED: EPOETIN ALFA 4000UNITS/ML VIAL SUBCUT SCH (23:00)
[2018-03-06] VITALS: BP 163/77
[2018-03-06] MEDS: CLONIDINE 0.1MG TABLET PO PRN (00:46)
[2018-03-06] MEDS: ALBUTEROL (0.083%) 2.5MG/3ML NEB HHN SCH ×4 (02:45→19:58)
[2018-03-06 04:00] VITALS: BP 146/64
[2018-03-06] MEDS: SODIUM CHLORIDE 0.9% INJ 3ML FLUSH IVF SCH ×3 (05:55→21:20)
[2018-03-06] MEDS: BLOOD SUGAR DIAGNOSTIC STRIP TEST SCH (06:30)
[2018-03-06] MEDS: INSULIN LISPRO 100 UNITS/ML SUBCUT SCH (06:58)
[2018-03-06 08:00] VITALS: BP 155/79
[2018-03-06] MEDS: GUAIFENESIN/DM 600MG/30MG ER TAB 12HR PO SCH ×2 (09:00→20:34)
[2018-03-06] MEDS ORDERED: SORBITOL 70% SOLN 30ML PO NR (09:15)
[2018-03-06] MEDS: ACETAMINOPHEN 325MG TABLET PO PRN (09:38)
[2018-03-06] MEDS: HYDRALAZINE HCL 100MG TABLET PO SCH ×2 (09:38→20:35)
[2018-03-06] MEDS: CALCITRIOL 0.25MCG CAPSULE PO SCH (09:38)
[2018-03-06] MEDS: FUROSEMIDE 40MG TABLET PO SCH (09:39)
[2018-03-06] MEDS: DOCUSATE SODIUM 100MG CAPSULE PO SCH ×2 (09:39→18:18)
[2018-03-06] MEDS: FOLIC ACID/VITAMIN B COMP W-C TABLET PO SCH (09:40)
[2018-03-06] MEDS: DILTIAZEM HCL 120MG CAPSULE CD 24HR PO SCH ×2 (12:00→20:36)
[2018-03-06] MEDS: CALCIUM ACETATE 667MG CAPSULE PO SCH ×2 (12:40→18:18)
[2018-03-06] MEDS ORDERED: CALCIUM ACETATE 667MG CAPSULE PO SCH (12:40)
[2018-03-06 18:38] VITALS: BP 149/77
[2018-03-06 20:00] VITALS: BP 132/83
[2018-03-07] VITALS: BP 138/67
[2018-03-07] MEDS: DIPHENHYDRAMINE 50MG/ML VIAL IV PRN (00:18)
[2018-03-07] MEDS: ALBUTEROL (0.083%) 2.5MG/3ML NEB HHN SCH ×4 (02:03→22:14)
[2018-03-07 04:00] VITALS: BP 145/65
[2018-03-07] MEDS: SODIUM CHLORIDE 0.9% INJ 3ML FLUSH IVF SCH ×3 (06:09→21:00)
[2018-03-07 06:33] LABS: BASOPHILS % 1.3 % (0.0-2.0); EOSINOPHILS % 3.6 % (0.0-5.0); HEMATOCRIT. 21.4 % (42.0-52.0); HEMOGLOBIN. 7.2 g/dL (14.0-18.0); LYMPHOCYTES % 19.1 % (20.0-50.0); MEAN CORPUSCULAR HEMOGLOBIN 27.8 pg (28.0-32.0); MEAN CORPUSCULAR VOLUME 83.1 fL (80.0-94.0); MEAN PLATELET VOLUME 8.8 fl (7.4-10.4); MONOCYTES % 9.7 % (2.0-8.0); NEUTROPHILS % 66.3 % (40.0-76.0); PLATELET 373 x1000/uL (130-400); RED BLOOD CELL COUNT 2.58 mill/uL (4.7-6.1); RED CELL DISTRIBUTION WIDTH 14.6 % (11.6-14.6)
[2018-03-07 06:38] LABS: CHLORIDE 100 mEq/L (98-107)
[2018-03-07 06:54] LABS: PHOSPHORUS 5.8 mg/dL (2.5-4.9)
[2018-03-07 08:00] VITALS: BP 143/63
[2018-03-07] MEDS: CALCITRIOL 0.25MCG CAPSULE PO SCH (08:26)
[2018-03-07] MEDS: FUROSEMIDE 40MG TABLET PO SCH (08:26)
[2018-03-07] MEDS: GUAIFENESIN/DM 600MG/30MG ER TAB 12HR PO SCH ×2 (08:27→20:58)
[2018-03-07] MEDS: DOCUSATE SODIUM 100MG CAPSULE PO SCH ×2 (08:27→17:06)
[2018-03-07] MEDS: CALCIUM ACETATE 667MG CAPSULE PO SCH ×3 (08:27→17:06)
[2018-03-07] MEDS: FOLIC ACID/VITAMIN B COMP W-C TABLET PO SCH (08:27)
[2018-03-07] MEDS: HYDRALAZINE HCL 100MG TABLET PO SCH ×2 (08:27→20:59)
[2018-03-07] MEDS: ENOXAPARIN 30MG/0.3ML SYR SUBCUT SCH (09:00)
[2018-03-07] MEDS: DILTIAZEM HCL 120MG CAPSULE CD 24HR PO SCH ×2 (09:00→21:00)
[2018-03-07 12:00] VITALS: BP 164/87
[2018-03-07 16:39] VITALS: BP 166/85
[2018-03-07 20:00] VITALS: BP 139/80
[2018-03-08] MEDS: DIPHENHYDRAMINE 50MG/ML VIAL IV PRN ×2 (00:27→22:06)
[2018-03-08] MEDS: ALBUTEROL (0.083%) 2.5MG/3ML NEB HHN SCH ×4 (01:43→21:39)
[2018-03-08 04:00] VITALS: BP 145/98
[2018-03-08] MEDS: SODIUM CHLORIDE 0.9% INJ 3ML FLUSH IVF SCH ×3 (06:00→20:41)
[2018-03-08 06:43] LABS: BASOPHILS % 1.8 % (0.0-2.0); EOSINOPHILS % 3.7 % (0.0-5.0); HEMATOCRIT. 21.8 % (42.0-52.0); HEMOGLOBIN. 7.5 g/dL (14.0-18.0); LYMPHOCYTES % 20.8 % (20.0-50.0); MEAN CORPUSCULAR HEMOGLOBIN 28.2 pg (28.0-32.0); MEAN CORPUSCULAR VOLUME 82.7 fL (80.0-94.0); MEAN PLATELET VOLUME 8.5 fl (7.4-10.4); MONOCYTES % 10.8 % (2.0-8.0); NEUTROPHILS % 62.9 % (40.0-76.0); PLATELET 393 x1000/uL (130-400); RED BLOOD CELL COUNT 2.64 mill/uL (4.7-6.1); RED CELL DISTRIBUTION WIDTH 14.4 % (11.6-14.6)
[2018-03-08 07:39] VITALS: BP 144/65
[2018-03-08] MEDS: CALCITRIOL 0.25MCG CAPSULE PO SCH (08:55)
[2018-03-08] MEDS: HYDRALAZINE HCL 100MG TABLET PO SCH ×3 (08:56→20:40)
[2018-03-08] MEDS: DILTIAZEM HCL 120MG CAPSULE CD 24HR PO SCH ×3 (08:56→20:43)
[2018-03-08] MEDS: CALCIUM ACETATE 667MG CAPSULE PO SCH ×3 (08:56→17:06)
[2018-03-08] MEDS: FUROSEMIDE 40MG TABLET PO SCH (08:57)
[2018-03-08] MEDS: DOCUSATE SODIUM 100MG CAPSULE PO SCH ×3 (08:59→17:10)
[2018-03-08] MEDS: GUAIFENESIN/DM 600MG/30MG ER TAB 12HR PO SCH ×2 (08:59→20:42)
[2018-03-08] MEDS: ENOXAPARIN 30MG/0.3ML SYR SUBCUT SCH (09:00)
[2018-03-08] MEDS: FOLIC ACID/VITAMIN B COMP W-C TABLET PO SCH (09:00)
[2018-03-08 11:39] VITALS: BP 153/80
[2018-03-08 15:45] VITALS: BP 137/68
[2018-03-08 20:00] VITALS: BP 140/77
[2018-03-08] MEDS: ACETAMINOPHEN 325MG TABLET PO PRN (22:30)
[2018-03-09] VITALS: BP 145/78
[2018-03-09] MEDS: DIPHENHYDRAMINE 50MG/ML VIAL IV PRN ×2 (02:24→23:45)
[2018-03-09] MEDS: ALBUTEROL (0.083%) 2.5MG/3ML NEB HHN SCH ×5 (02:49→19:53)
[2018-03-09 04:00] VITALS: BP 150/88
[2018-03-09] MEDS: SODIUM CHLORIDE 0.9% INJ 3ML FLUSH IVF SCH ×3 (06:35→22:00)
[2018-03-09 08:00] VITALS: BP 155/72
[2018-03-09] MEDS: CALCITRIOL 0.25MCG CAPSULE PO SCH (09:09)
[2018-03-09] MEDS: FOLIC ACID/VITAMIN B COMP W-C TABLET PO SCH (09:10)
[2018-03-09] MEDS: DILTIAZEM HCL 120MG CAPSULE CD 24HR PO SCH ×2 (09:10→23:44)
[2018-03-09] MEDS: CALCIUM ACETATE 667MG CAPSULE PO SCH ×3 (09:11→17:08)
[2018-03-09] MEDS: HYDRALAZINE HCL 100MG TABLET PO SCH ×2 (09:12→23:45)
[2018-03-09] MEDS: GUAIFENESIN/DM 600MG/30MG ER TAB 12HR PO SCH ×2 (09:12→23:43)
[2018-03-09] MEDS: DOCUSATE SODIUM 100MG CAPSULE PO SCH ×2 (09:12→17:08)
[2018-03-09] MEDS: ENOXAPARIN 30MG/0.3ML SYR SUBCUT SCH (09:13)
[2018-03-09] MEDS: FUROSEMIDE 40MG TABLET PO SCH (09:13)
[2018-03-09 09:56] LABS: BASOPHILS % 2.5 % (0.0-2.0); EOSINOPHILS % 4.2 % (0.0-5.0); HEMATOCRIT. 22.1 % (42.0-52.0); HEMOGLOBIN. 7.2 g/dL (14.0-18.0); LYMPHOCYTES % 18.2 % (20.0-50.0); MEAN CORPUSCULAR HEMOGLOBIN 27.3 pg (28.0-32.0); MEAN CORPUSCULAR VOLUME 83.3 fL (80.0-94.0); MEAN PLATELET VOLUME 8.5 fl (7.4-10.4); MONOCYTES % 11.1 % (2.0-8.0); PLATELET 404 x1000/uL (130-400); RED BLOOD CELL COUNT 2.65 mill/uL (4.7-6.1); RED CELL DISTRIBUTION WIDTH 14.4 % (11.6-14.6)
[2018-03-09 12:00] VITALS: BP 142/70
[2018-03-09 16:00] VITALS: BP 143/70
[2018-03-09 23:37] VITALS: BP 134/63
[2018-03-10] MEDS: ALBUTEROL (0.083%) 2.5MG/3ML NEB HHN SCH ×4 (00:05→20:05)
[2018-03-10 07:16] LABS: BASOPHILS % 1.3 % (0.0-2.0); EOSINOPHILS % 3.1 % (0.0-5.0); HEMATOCRIT. 22.5 % (42.0-52.0); HEMOGLOBIN. 7.4 g/dL (14.0-18.0); LYMPHOCYTES % 18.5 % (20.0-50.0); MEAN CORPUSCULAR HEMOGLOBIN 27.4 pg (28.0-32.0); MEAN CORPUSCULAR VOLUME 83.3 fL (80.0-94.0); MEAN PLATELET VOLUME 8.5 fl (7.4-10.4); MONOCYTES % 9.1 % (2.0-8.0); PLATELET 414 x1000/uL (130-400); RED CELL DISTRIBUTION WIDTH 14.6 % (11.6-14.6)
[2018-03-10 08:00] VITALS: BP 138/61
[2018-03-10] MEDS: DILTIAZEM HCL 120MG CAPSULE CD 24HR PO SCH ×2 (09:00→20:33)
[2018-03-10] MEDS: FUROSEMIDE 40MG TABLET PO SCH (09:00)
[2018-03-10] MEDS: ENOXAPARIN 30MG/0.3ML SYR SUBCUT SCH (09:00)
[2018-03-10] MEDS ORDERED: LACTULOSE 20G/30ML UDC PO SCH (09:15)
[2018-03-10] MEDS: HYDRALAZINE HCL 100MG TABLET PO SCH ×2 (09:15→20:35)
[2018-03-10 09:21] LABS: PHOSPHORUS 5.3 mg/dL (2.5-4.9)
[2018-03-10] MEDS ORDERED: LACTULOSE 20G/30ML UDC PO PRN (09:30)
[2018-03-10] MEDS ORDERED: GUAIFENESIN/CODEINE 100-10MG/5ML UDC PO PRN (09:30)
[2018-03-10] MEDS: CALCITRIOL 0.25MCG CAPSULE PO SCH (09:47)
[2018-03-10] MEDS: FOLIC ACID/VITAMIN B COMP W-C TABLET PO SCH (09:47)
[2018-03-10] MEDS: GUAIFENESIN/DM 600MG/30MG ER TAB 12HR PO SCH ×2 (09:47→20:18)
[2018-03-10 12:00] VITALS: BP 122/67
[2018-03-10] MEDS ORDERED: HEPARIN SODIUM 1,000 UNIT/1ML VIAL IV SCH (12:15)
[2018-03-10] MEDS: CALCIUM ACETATE 667MG CAPSULE PO SCH ×2 (12:40→17:40)
[2018-03-10] MEDS: SODIUM CHLORIDE 0.9% INJ 3ML FLUSH IVF SCH ×2 (14:00→22:00)
[2018-03-10 16:00] VITALS: BP 128/64
[2018-03-10 20:00] VITALS: BP 140/66
[2018-03-10] MEDS ORDERED: EPOETIN ALFA 4000UNITS/ML VIAL SUBCUT SCH (21:00)
[2018-03-10] MEDS: DIPHENHYDRAMINE 50MG/ML VIAL IV PRN (23:32)
[2018-03-11] VITALS: BP 145/85
[2018-03-11] MEDS: ALBUTEROL (0.083%) 2.5MG/3ML NEB HHN SCH ×4 (01:19→20:41)
[2018-03-11 04:00] VITALS: BP 143/65
[2018-03-11 05:19] LABS: HIV SCREEN 4G Non Reactive (Non Reactive)
[2018-03-11] MEDS: SODIUM CHLORIDE 0.9% INJ 3ML FLUSH IVF SCH ×2 (06:54→21:47)
[2018-03-11 08:00] VITALS: BP 152/79
[2018-03-11] MEDS: ENOXAPARIN 30MG/0.3ML SYR SUBCUT SCH (09:09)
[2018-03-11] MEDS: DILTIAZEM HCL 120MG CAPSULE CD 24HR PO SCH ×2 (09:09→21:46)
[2018-03-11] MEDS: GUAIFENESIN/DM 600MG/30MG ER TAB 12HR PO SCH ×2 (09:09→21:46)
[2018-03-11] MEDS: CALCIUM ACETATE 667MG CAPSULE PO SCH (09:10)
[2018-03-11] MEDS: HYDRALAZINE HCL 100MG TABLET PO SCH ×2 (09:16→21:00)
[2018-03-11] MEDS: CALCITRIOL 0.25MCG CAPSULE PO SCH (09:20)
[2018-03-11] MEDS: FOLIC ACID/VITAMIN B COMP W-C TABLET PO SCH (09:20)
[2018-03-11 20:00] VITALS: BP 135/81
[2018-03-11] MEDS: DIPHENHYDRAMINE 50MG/ML VIAL IV PRN (23:31)
[2018-03-11 23:45] VITALS: BP 152/72
[2018-03-12] MEDS: ALBUTEROL (0.083%) 2.5MG/3ML NEB HHN SCH ×2 (02:04→08:04)
[2018-03-12] MEDS: SODIUM CHLORIDE 0.9% INJ 3ML FLUSH IVF SCH (06:00)
[2018-03-12 06:18] LABS: EOSINOPHILS % 3.5 % (0.0-5.0); HEMATOCRIT. 24.8 % (42.0-52.0); HEMOGLOBIN. 8.1 g/dL (14.0-18.0); LYMPHOCYTES % 16.4 % (20.0-50.0); MEAN CORPUSCULAR HEMOGLOBIN 27.3 pg (28.0-32.0); MEAN CORPUSCULAR VOLUME 83.2 fL (80.0-94.0); MEAN PLATELET VOLUME 8.4 fl (7.4-10.4); MONOCYTES % 8.4 % (2.0-8.0); NEUTROPHILS % 69.7 % (40.0-76.0); PLATELET 431 x1000/uL (130-400); RED BLOOD CELL COUNT 2.98 mill/uL (4.7-6.1); RED CELL DISTRIBUTION WIDTH 15.2 % (11.6-14.6)
[2018-03-12 06:36] LABS: PHOSPHORUS 4.9 mg/dL (2.5-4.9)
[2018-03-12 08:00] VITALS: BP 134/63
[2018-03-12] MEDS ORDERED: DILT-2 PO (08:24)
[2018-03-12 08:46] VITALS: BP 134/63
== END 2018-03-12 09:50 | disposition home or self-care (01) | DRG 720 ==
LOC: ER 20:20 → 8WST 02-20 00:11 → EDBEDREQ 02-20 00:15 → EDBEDREQDT 02-20 00:15 → EDBEDREQTM 02-20 00:15 → ENRESERV 02-20 05:00
PROVIDERS: ADMIT Family Medicine; ATTEND Family Medicine
PROC: 02H633Z Insertion of Infusion Device into Right Atrium, Percutaneous Approach (ICD-10-PCS; 2018-02-20)
PROC: B244ZZZ Ultrasonography of Right Heart (ICD-10-PCS; 2018-02-20)
PROC: 5A1D70Z Performance of Urinary Filtration, Intermittent, Less than 6 Hours Per Day (ICD-10-PCS; 2018-02-20)
PROC: 5A1D70Z Performance of Urinary Filtration, Intermittent, Less than 6 Hours Per Day (ICD-10-PCS; 2018-02-21)
PROC: 30233N1 Transfusion of Nonautologous Red Blood Cells into Peripheral Vein, Percutaneous Approach (ICD-10-PCS; 2018-02-23)
PROC: 5A1D70Z Performance of Urinary Filtration, Intermittent, Less than 6 Hours Per Day (ICD-10-PCS; 2018-02-23)
PROC: 5A1D70Z Performance of Urinary Filtration, Intermittent, Less than 6 Hours Per Day (ICD-10-PCS; 2018-02-25)
PROC: 5A1D70Z Performance of Urinary Filtration, Intermittent, Less than 6 Hours Per Day (ICD-10-PCS; 2018-02-27)
PROC: 0JH63XZ Insertion of Tunneled Vascular Access Device into Chest Subcutaneous Tissue and Fascia, Percutaneous Approach (ICD-10-PCS; principal; 2018-02-28)
PROC: 02HV33Z Insertion of Infusion Device into Superior Vena Cava, Percutaneous Approach (ICD-10-PCS; 2018-02-28)
PROC: B5181ZA Fluoroscopy of Superior Vena Cava using Low Osmolar Contrast, Guidance (ICD-10-PCS; 2018-02-28)
PROC: 5A1D70Z Performance of Urinary Filtration, Intermittent, Less than 6 Hours Per Day (ICD-10-PCS; 2018-03-01)
PROC: 5A1D70Z Performance of Urinary Filtration, Intermittent, Less than 6 Hours Per Day (ICD-10-PCS; 2018-03-03)
PROC: 5A1D70Z Performance of Urinary Filtration, Intermittent, Less than 6 Hours Per Day (ICD-10-PCS; 2018-03-05)
PROC: 5A1D70Z Performance of Urinary Filtration, Intermittent, Less than 6 Hours Per Day (ICD-10-PCS; 2018-03-07)
PROC: 5A1D70Z Performance of Urinary Filtration, Intermittent, Less than 6 Hours Per Day (ICD-10-PCS; 2018-03-10)
DX: A41.9 Sepsis, unspecified organism (principal); E43 Unspecified severe protein-calorie malnutrition; I13.2 Hypertensive heart and chronic kidney disease with heart failure and with stage 5 chronic kidney disease, or end stage renal disease; E11.22 Type 2 diabetes mellitus with diabetic chronic kidney disease; D63.1 Anemia in chronic kidney disease; E83.51 Hypocalcemia; E87.1 Hypo-osmolality and hyponatremia; R74.8 Abnormal levels of other serum enzymes; N18.6 End stage renal disease; K59.00 Constipation, unspecified; J98.11 Atelectasis; N25.81 Secondary hyperparathyroidism of renal origin; Z53.20 Procedure and treatment not carried out because of patient's decision for unspecified reasons; Z79.4 Long term (current) use of insulin; Z82.49 Family history of ischemic heart disease and other diseases of the circulatory system; Z83.3 Family history of diabetes mellitus; Z91.14 Patient's other noncompliance with medication regimen; Z91.15 Patient's noncompliance with renal dialysis; Z91.19 Patient's noncompliance with other medical treatment and regimen; Z99.2 Dependence on renal dialysis; Z88.8 Allergy status to other drugs, medicaments and biological substances; Z79.899 Other long term (current) drug therapy; I50.33 Acute on chronic diastolic (congestive) heart failure; J40 Bronchitis, not specified as acute or chronic; T39.395A Adverse effect of other nonsteroidal anti-inflammatory drugs [NSAID], initial encounter; E83.52 Hypercalcemia
CPT/HCPCS: 12001; 36415; 36556; 36558; 36589; 71045; 71250; 74176; 76937; 77001; 80048; 80061; 80202; 80305; 82550; 82553; 82962; 83036; 83520; 83735; 83880; 84100; 84145; 84484; 85014; 85018; 85651; 86256; 86480; 86592; 86705; 86706; 86780; 86803; 86850; 86900; 86920; 87340; 87389; 87517; 87798; 93005; 93970; 94640; 96374; 99285; C1750; C1752; C1769; C1893; G0482; J0690; J0696; J0885; J1200; J1644; J1650; J1815; J1940; J2405; J2597; J3370; J3490; J7050; J7060; J7611; J7620; P9016

== ENCOUNTER 2018-04-16 16:14 | Emergency (ER) | payer MEDICAID ==
[~2018-04-16] VITALS: Ht 182.9 cm; Wt 90.0 kg
[~2018-04-16 16:14] MED LIST changes: +ATOR10TA MT; +CALC667C PO; +DILT-2 PO; -INSU3INS6 SUBCUT; +NEPVIT PO; -PRO1 PO; -REN800 PO
[2018-04-16 18:12] LABS: CHLORIDE 99 mEq/L (98-107)
[2018-04-16 18:15] LABS: EOSINOPHILS % 2.6 % (0.0-5.0); HEMATOCRIT. 31.4 % (42.0-52.0); HEMOGLOBIN. 10.4 g/dL (14.0-18.0); LYMPHOCYTES % 19.8 % (20.0-50.0); MEAN CORPUSCULAR HEMOGLOBIN 28.1 pg (28.0-32.0); MEAN CORPUSCULAR VOLUME 84.6 fL (80.0-94.0); MEAN PLATELET VOLUME 8.8 fl (7.4-10.4); MONOCYTES % 9.8 % (2.0-8.0); NEUTROPHILS % 66.8 % (40.0-76.0); PLATELET 294 x1000/uL (130-400); RED BLOOD CELL COUNT 3.71 mill/uL (4.7-6.1); RED CELL DISTRIBUTION WIDTH 15.5 % (11.6-14.6)
[2018-04-16 20:30] VITALS: BP 174/88
== END 2018-04-16 20:32 | disposition home or self-care (01) ==
LOC: ER 16:14
DX: R00.2 Palpitations (principal); I13.2 Hypertensive heart and chronic kidney disease with heart failure and with stage 5 chronic kidney disease, or end stage renal disease; I50.9 Heart failure, unspecified; E11.22 Type 2 diabetes mellitus with diabetic chronic kidney disease; N18.6 End stage renal disease; Z99.2 Dependence on renal dialysis
CPT/HCPCS: 36415; 71045; 80053; 83880; 84484; 85025; 93005; 99284; Z7610

== ENCOUNTER 2018-08-02 03:24 | Inpatient (IN) | payer MEDICARE, MEDICAID ==
[~2018-08-02] VITALS: Ht 190.5 cm; Wt 94.1 kg
[2018-08-02] VITALS (85 sets, daily range): BP systolic 146–197; BP diastolic 75–116
[2018-08-02] MEDS ORDERED: FUROSEMIDE 100MG/10ML VIAL IVP SCH (04:15)
[2018-08-02] MEDS ORDERED: ASPIRIN 81MG TABLET PO ONE (04:15)
[2018-08-02] MEDS ORDERED: NITROGLYCERIN 0.4MG TABLET SL SL PRN (04:15)
[2018-08-02 04:25] LABS: BASOPHILS % 1.7 % (0.0-2.0); EOSINOPHILS % 4.4 % (0.0-5.0); HEMATOCRIT. 26.9 % (42.0-52.0); HEMOGLOBIN. 9.1 g/dL (14.0-18.0); LYMPHOCYTES % 12.7 % (20.0-50.0); MEAN CORPUSCULAR HEMOGLOBIN 27.7 pg (28.0-32.0); MEAN CORPUSCULAR VOLUME 82.3 fL (80.0-94.0); MEAN PLATELET VOLUME 8.6 fl (7.4-10.4); MONOCYTES % 5.4 % (2.0-8.0); NEUTROPHILS % 75.8 % (40.0-76.0); PLATELET 317 x1000/uL (130-400); RED BLOOD CELL COUNT 3.27 mill/uL (4.7-6.1); RED CELL DISTRIBUTION WIDTH 16.8 % (11.6-14.6)
[2018-08-02 04:27] LABS: CHLORIDE 95 mEq/L (98-107)
[2018-08-02] MEDS ORDERED: MORPHINE SULFATE 10 MG/ML CPJ IV NR (06:00)
[2018-08-02] MEDS ORDERED: HYDRALAZINE 20MG/ML VIAL IV ONE (06:45)
[2018-08-02] MEDS ORDERED: LORAZEPAM 2MG/ML CPJ IV PRN (07:30)
[2018-08-02] MEDS ORDERED: ONDANSETRON HCL 4MG/2ML INJ IV PRN (07:30)
[2018-08-02] MEDS ORDERED: HYDROCODONE/ACETAMINOPHEN 5/325MG TABLET PO PRN (07:30)
[2018-08-02] MEDS ORDERED: MAGNESIUM/ALUMINUM HYDROXIDE/SIMETHICONE 30ML UDC PO PRN (07:30)
[2018-08-02] MEDS ORDERED: HYDRALAZINE 20MG/ML VIAL IV PRN (08:45)
[2018-08-02] MEDS: BLOOD SUGAR DIAGNOSTIC STRIP TEST SCH ×4 (09:00→21:55)
[2018-08-02] MEDS ORDERED: LISINOPRIL 20MG TABLET PO SCH (09:00)
[2018-08-02] MEDS ORDERED: METOPROLOL TARTRATE 25MG TABLET PO SCH (09:00)
[2018-08-02] MEDS ORDERED: CLONIDINE 0.1MG TABLET PO PRN (09:00)
[2018-08-02] MEDS: NITROGLYCERIN 50MG PREMIX 250 ML IV PRN ×2 (09:46→13:40)
[2018-08-02] MEDS ORDERED: CLONIDINE 0.1MG TABLET PO NR (10:04)
[2018-08-02] MEDS: ASPIRIN 81MG EC TABLET PO SCH (10:24)
[2018-08-02] MEDS: ENOXAPARIN 40MG/0.4ML SYR SUBCUT SCH (10:24)
[2018-08-02] MEDS: FOLIC ACID 1MG TABLET PO SCH (10:33)
[2018-08-02] MEDS: NIFEDIPINE XL 60MG TAB PO SCH ×2 (10:34→22:10)
[2018-08-02] MEDS: IPRATROPIUM/ALBUTEROL 0.5-3(2.5)MG/3ML NEB INH PRN (10:51)
[2018-08-02] MEDS ORDERED: INSULIN GLARGINE UD 100 UNITS/ML SYR SUBCUT SCH (11:00)
[2018-08-02] MEDS: LOSARTAN POTASSIUM 100 MG TABLET PO SCH (13:18)
[2018-08-02] MEDS: INSULIN LISPRO 100 UNITS/ML SUBCUT SCH ×3 (13:20→21:00)
[2018-08-02 21:36] LABS: CREATINE KINASE MB FRACTION 1.1 ng/mL (0.5-3.6)
[2018-08-02] MEDS: INSULIN GLARGINE UD 100 UNITS/ML SYR SUBCUT SCH (21:55)
[2018-08-03] VITALS (96 sets, daily range): BP systolic 115–172; BP diastolic 48–99
[2018-08-03] MEDS: NITROGLYCERIN 50MG PREMIX 250 ML IV PRN ×4 (00:45→21:40)
[2018-08-03 06:06] LABS: HEMATOCRIT. 23.7 % (42.0-52.0); HEMOGLOBIN. 7.8 g/dL (14.0-18.0); MEAN CORPUSCULAR HEMOGLOBIN 27.3 pg (28.0-32.0); MEAN CORPUSCULAR VOLUME 82.7 fL (80.0-94.0); PLATELET 341 x1000/uL (130-400); RED BLOOD CELL COUNT 2.87 mill/uL (4.7-6.1); RED CELL DISTRIBUTION WIDTH 16.6 % (11.6-14.6)
[2018-08-03] MEDS: BLOOD SUGAR DIAGNOSTIC STRIP TEST SCH ×4 (06:15→21:34)
[2018-08-03] MEDS: INSULIN LISPRO 100 UNITS/ML SUBCUT SCH ×4 (06:15→21:00)
[2018-08-03 06:59] LABS: BASOPHILS % 1.1 % (0.0-2.0); EOSINOPHILS % 3.4 % (0.0-5.0); LYMPHOCYTES % 11.8 % (20.0-50.0); MONOCYTES % 6.8 % (2.0-8.0); NEUTROPHILS % 76.9 % (40.0-76.0)
[2018-08-03] MEDS: NIFEDIPINE XL 60MG TAB PO SCH (09:00)
[2018-08-03] MEDS: ASPIRIN 81MG EC TABLET PO SCH (09:35)
[2018-08-03] MEDS: LOSARTAN POTASSIUM 100 MG TABLET PO SCH (09:35)
[2018-08-03] MEDS: FOLIC ACID 1MG TABLET PO SCH (09:35)
[2018-08-03] MEDS: ENOXAPARIN 40MG/0.4ML SYR SUBCUT SCH (09:36)
[2018-08-03] MEDS: INSULIN GLARGINE UD 100 UNITS/ML SYR SUBCUT SCH ×2 (09:41→22:16)
[2018-08-03 10:55] LABS: TOTAL IRON BINDING CAPACITY 143 ug/dL (250-450)
[2018-08-03] MEDS: MINOXIDIL 2.5MG TABLET PO SCH (11:12)
[2018-08-03] MEDS: HYDRALAZINE HCL 100MG TABLET PO SCH ×2 (13:45→21:36)
[2018-08-03] MEDS: IPRATROPIUM/ALBUTEROL 0.5-3(2.5)MG/3ML NEB INH PRN (15:35)
[2018-08-03] MEDS: POLYMYXIN B OP SCH ×3 (17:42→21:39)
[2018-08-03] MEDS: NEOMYCIN TOP SCH ×2 (17:42→21:39)
[2018-08-03] MEDS: NEOMYCIN OP SCH ×3 (17:42→21:39)
[2018-08-03] MEDS: POLYMYXIN B TOP SCH ×2 (17:42→21:39)
[2018-08-03] MEDS: DEXAMETHASONE OP SCH ×3 (17:42→21:39)
[2018-08-03] MEDS: DEXAMETHASONE TOP SCH ×2 (17:42→21:39)
[2018-08-03] MEDS: OFLOXACIN 0.3% OP SCH (17:43)
[2018-08-03] MEDS: HEPARIN SODIUM 1,000 UNIT/1ML VIAL IV SCH ×2 (19:32→19:34)
[2018-08-04] VITALS (86 sets, daily range): BP systolic 104–158; BP diastolic 43–78
[2018-08-04 05:52] LABS: BASOPHILS % 1.5 % (0.0-2.0); HEMATOCRIT. 23.7 % (42.0-52.0); LYMPHOCYTES % 13.9 % (20.0-50.0); MEAN CORPUSCULAR HEMOGLOBIN 27.8 pg (28.0-32.0); MEAN CORPUSCULAR VOLUME 82.7 fL (80.0-94.0); MEAN PLATELET VOLUME 8.8 fl (7.4-10.4); MONOCYTES % 9.6 % (2.0-8.0); PLATELET 392 x1000/uL (130-400); RED BLOOD CELL COUNT 2.87 mill/uL (4.7-6.1); RED CELL DISTRIBUTION WIDTH 16.6 % (11.6-14.6)
[2018-08-04] MEDS: HYDRALAZINE HCL 100MG TABLET PO SCH ×3 (06:01→22:00)
[2018-08-04] MEDS: BLOOD SUGAR DIAGNOSTIC STRIP TEST SCH ×4 (06:04→20:16)
[2018-08-04] MEDS: INSULIN LISPRO 100 UNITS/ML SUBCUT SCH ×4 (06:04→20:20)
[2018-08-04] MEDS: IPRATROPIUM/ALBUTEROL 0.5-3(2.5)MG/3ML NEB INH PRN (07:56)
[2018-08-04] MEDS: ENOXAPARIN 40MG/0.4ML SYR SUBCUT SCH (09:00)
[2018-08-04] MEDS: FOLIC ACID 1MG TABLET PO SCH (09:11)
[2018-08-04] MEDS: ASPIRIN 81MG EC TABLET PO SCH (09:11)
[2018-08-04] MEDS: NEOMYCIN OP SCH ×4 (09:12→20:19)
[2018-08-04] MEDS: POLYMYXIN B OP SCH ×4 (09:12→20:19)
[2018-08-04] MEDS: DEXAMETHASONE OP SCH ×4 (09:12→20:19)
[2018-08-04] MEDS: MINOXIDIL 2.5MG TABLET PO SCH (09:12)
[2018-08-04] MEDS: LOSARTAN POTASSIUM 100 MG TABLET PO SCH (09:12)
[2018-08-04] MEDS: OFLOXACIN 0.3% OP SCH ×3 (09:12→17:43)
[2018-08-04] MEDS: NITROGLYCERIN 50MG PREMIX 250 ML IV PRN (10:12)
[2018-08-04] MEDS: INSULIN GLARGINE UD 100 UNITS/ML SYR SUBCUT SCH ×2 (11:40→22:35)
[2018-08-04] MEDS ORDERED: HEPARIN SODIUM 1,000 UNIT/1ML VIAL IV NR (13:00)
[2018-08-04] MEDS: CLONIDINE 0.1MG TABLET PO SCH ×2 (14:03→22:00)
[2018-08-04 18:44] LABS: BG BASE EXCESS 2.5 mmol/L (-2.0-2.0); BG CARBOXYHEMOGLOBIN 0.6 % (0.5-1.5); BG DEOXYHEMOGLOBIN 2.7 % (0.0-5.0); BG FRACTION INSPIRED OXYGEN 32; BG METHEMOGLOBIN 0.3 % (0.0-1.5); BG OXYGEN SATURATION 97.3 % (92.0-98.5); BG OXYHEMOGLOBIN 96.4 % (94.0-97.0); BG PCO2 36.1 mmHg (35.0-45.0); BG PH 7.476 (7.350-7.450); BG PO2 95.8 mmHg (75.0-100.0); BG SAMPLE SITE RIGHT RADIAL; BG TOTAL HEMOGLOBIN 10.2 g/dL (12.0-18.0); BG VENT MODE NASAL CANNULA
[2018-08-04] MEDS: DEXAMETHASONE TOP SCH (20:19)
[2018-08-04] MEDS: NEOMYCIN TOP SCH (20:19)
[2018-08-04] MEDS: POLYMYXIN B TOP SCH (20:19)
[2018-08-04] MEDS ORDERED: VANCOMYCIN 500 MG PREMIX 100 ML IV SCH (20:30)
[2018-08-04] MEDS ORDERED: ACETAMINOPHEN 325MG TABLET PO PRN (20:30)
[2018-08-04] MEDS ORDERED: VANCOMYCIN 2,000 MG in DEXT 5% WATER 500 ML IV NR (21:30)
[2018-08-04 23:15] LABS: PHOSPHORUS 4.1 mg/dL (2.5-4.9)
[2018-08-05] VITALS (41 sets, daily range): BP systolic 97–162; BP diastolic 47–98
[2018-08-05 05:42] LABS: BASOPHILS % 1.5 % (0.0-2.0); EOSINOPHILS % 2.4 % (0.0-5.0); HEMATOCRIT. 26.6 % (42.0-52.0); HEMOGLOBIN. 8.8 g/dL (14.0-18.0); MEAN CORPUSCULAR HEMOGLOBIN 27.5 pg (28.0-32.0); MEAN CORPUSCULAR VOLUME 82.6 fL (80.0-94.0); MEAN PLATELET VOLUME 8.7 fl (7.4-10.4); MONOCYTES % 11.7 % (2.0-8.0); NEUTROPHILS % 64.4 % (40.0-76.0); PLATELET 441 x1000/uL (130-400); RED BLOOD CELL COUNT 3.22 mill/uL (4.7-6.1); RED CELL DISTRIBUTION WIDTH 16.8 % (11.6-14.6)
[2018-08-05 06:17] LABS: CHLORIDE 100 mEq/L (98-107)
[2018-08-05] MEDS: HYDRALAZINE HCL 100MG TABLET PO SCH ×3 (06:24→22:03)
[2018-08-05] MEDS: BLOOD SUGAR DIAGNOSTIC STRIP TEST SCH ×4 (06:24→20:35)
[2018-08-05] MEDS: CLONIDINE 0.1MG TABLET PO SCH ×3 (06:24→22:02)
[2018-08-05 06:27] LABS: PHOSPHORUS 5.7 mg/dL (2.5-4.9)
[2018-08-05] MEDS: INSULIN LISPRO 100 UNITS/ML SUBCUT SCH ×4 (07:00→21:00)
[2018-08-05] MEDS: ENOXAPARIN 40MG/0.4ML SYR SUBCUT SCH (09:00)
[2018-08-05] MEDS ORDERED: MINOXIDIL 10MG TABLET PO SCH (09:00)
[2018-08-05] MEDS: ASPIRIN 81MG EC TABLET PO SCH (09:00)
[2018-08-05] MEDS: FOLIC ACID 1MG TABLET PO SCH (09:38)
[2018-08-05] MEDS: LOSARTAN POTASSIUM 100 MG TABLET PO SCH (09:38)
[2018-08-05] MEDS: OFLOXACIN 0.3% OP SCH ×3 (09:39→17:00)
[2018-08-05] MEDS: INSULIN GLARGINE UD 100 UNITS/ML SYR SUBCUT SCH ×2 (09:39→21:01)
[2018-08-05] MEDS: DEXAMETHASONE OP SCH ×4 (09:39→20:55)
[2018-08-05] MEDS: NEOMYCIN OP SCH ×4 (09:39→20:55)
[2018-08-05] MEDS: POLYMYXIN B OP SCH ×4 (09:39→20:55)
[2018-08-05 10:12] LABS: PROTHROMBIN TIME 10.6 sec (9.6-11.0)
[2018-08-05] MEDS ORDERED: VANCOMYCIN 1 G PREMIX 200 ML IV ONE (14:00)
[2018-08-05] MEDS: PIPERACILLIN/TAZ 2.25G PREMIX 50 ML IV SCH (17:00)
[2018-08-05] MEDS: MINOXIDIL 10MG TABLET PO SCH (17:01)
[2018-08-05] MEDS: DEXAMETHASONE TOP SCH (20:55)
[2018-08-05] MEDS: NEOMYCIN TOP SCH (20:55)
[2018-08-05] MEDS: POLYMYXIN B TOP SCH (20:55)
[2018-08-05] MEDS: IPRATROPIUM/ALBUTEROL 0.5-3(2.5)MG/3ML NEB INH PRN (21:16)
[2018-08-05] MEDS: EPOETIN ALFA 4000UNITS/ML VIAL SUBCUT SCH (21:52)
[2018-08-06] VITALS (21 sets, daily range): BP systolic 99–141; BP diastolic 51–82
[2018-08-06] MEDS: DIPHENHYDRAMINE 50MG/ML VIAL IV PRN ×2 (00:24→05:39)
[2018-08-06] MEDS: PIPERACILLIN/TAZ 2.25G PREMIX 50 ML IV SCH ×2 (04:21→16:05)
[2018-08-06] MEDS: HYDRALAZINE HCL 100MG TABLET PO SCH ×2 (05:37→21:31)
[2018-08-06] MEDS: CLONIDINE 0.1MG TABLET PO SCH ×3 (05:38→21:30)
[2018-08-06] MEDS: BLOOD SUGAR DIAGNOSTIC STRIP TEST SCH ×4 (06:23→21:38)
[2018-08-06] MEDS: INSULIN LISPRO 100 UNITS/ML SUBCUT SCH ×4 (07:20→21:32)
[2018-08-06] MEDS: ENOXAPARIN 40MG/0.4ML SYR SUBCUT SCH (07:54)
[2018-08-06] MEDS: ASPIRIN 81MG EC TABLET PO SCH (07:54)
[2018-08-06] MEDS: OFLOXACIN 0.3% OP SCH ×3 (07:55→17:48)
[2018-08-06] MEDS: FOLIC ACID 1MG TABLET PO SCH (07:55)
[2018-08-06] MEDS: POLYMYXIN B OP SCH ×4 (07:56→21:35)
[2018-08-06] MEDS: DEXAMETHASONE OP SCH ×4 (07:56→21:35)
[2018-08-06] MEDS: NEOMYCIN OP SCH ×4 (07:56→21:35)
[2018-08-06] MEDS: LOSARTAN POTASSIUM 100 MG TABLET PO SCH (08:00)
[2018-08-06] MEDS: MINOXIDIL 10MG TABLET PO SCH ×2 (08:00→17:47)
[2018-08-06] MEDS ORDERED: HYDRALAZINE HCL 100MG TABLET PO SCH (09:45)
[2018-08-06] MEDS ORDERED: HEPARIN 1000 UNITS/ML 10ML ONE (10:36)
[2018-08-06] MEDS ORDERED: LIDOCAINE HCL 1% 20ML VIAL (Pyxis) INJ ONE (10:36)
[2018-08-06] MEDS: INSULIN GLARGINE UD 100 UNITS/ML SYR SUBCUT SCH ×2 (11:53→21:32)
[2018-08-06 16:42] LABS: VITAMIN B12 SERUM 1297 pg/mL (211-911)
[2018-08-06] MEDS: POLYMYXIN B TOP SCH (21:37)
[2018-08-06] MEDS: NEOMYCIN TOP SCH (21:37)
[2018-08-06] MEDS: DEXAMETHASONE TOP SCH (21:37)
[2018-08-07] VITALS (13 sets, daily range): BP systolic 116–145; BP diastolic 49–72
[2018-08-07] MEDS: PIPERACILLIN/TAZ 2.25G PREMIX 50 ML IV SCH ×2 (03:25→14:56)
[2018-08-07] MEDS: CLONIDINE 0.1MG TABLET PO SCH ×3 (05:51→22:56)
[2018-08-07 06:14] LABS: BASOPHILS % 2.1 % (0.0-2.0); EOSINOPHILS % 7.7 % (0.0-5.0); HEMATOCRIT. 25.1 % (42.0-52.0); HEMOGLOBIN. 8.4 g/dL (14.0-18.0); LYMPHOCYTES % 18.9 % (20.0-50.0); MEAN CORPUSCULAR HEMOGLOBIN 27.3 pg (28.0-32.0); MEAN CORPUSCULAR VOLUME 81.2 fL (80.0-94.0); MEAN PLATELET VOLUME 8.3 fl (7.4-10.4); NEUTROPHILS % 60.3 % (40.0-76.0); PLATELET 505 x1000/uL (130-400); RED BLOOD CELL COUNT 3.09 mill/uL (4.7-6.1); RED CELL DISTRIBUTION WIDTH 16.7 % (11.6-14.6)
[2018-08-07 06:33] LABS: CHLORIDE 99 mEq/L (98-107)
[2018-08-07] MEDS: BLOOD SUGAR DIAGNOSTIC STRIP TEST SCH ×4 (07:18→21:18)
[2018-08-07] MEDS: INSULIN LISPRO 100 UNITS/ML SUBCUT SCH ×4 (07:18→21:28)
[2018-08-07 07:24] LABS: PHOSPHORUS 8.2 mg/dL (2.5-4.9)
[2018-08-07] MEDS: HYDRALAZINE HCL 100MG TABLET PO SCH ×2 (09:00→21:33)
[2018-08-07] MEDS: LOSARTAN POTASSIUM 100 MG TABLET PO SCH (09:00)
[2018-08-07] MEDS: MINOXIDIL 10MG TABLET PO SCH ×2 (09:00→18:22)
[2018-08-07] MEDS: POLYMYXIN B OP SCH ×4 (09:24→21:41)
[2018-08-07] MEDS: ASPIRIN 81MG EC TABLET PO SCH (09:24)
[2018-08-07] MEDS: NEOMYCIN OP SCH ×4 (09:24→21:41)
[2018-08-07] MEDS: DEXAMETHASONE OP SCH ×4 (09:24→21:41)
[2018-08-07] MEDS: OFLOXACIN 0.3% OP SCH ×3 (09:24→18:36)
[2018-08-07] MEDS: INSULIN GLARGINE UD 100 UNITS/ML SYR SUBCUT SCH ×2 (09:56→21:28)
[2018-08-07] MEDS: ENOXAPARIN 40MG/0.4ML SYR SUBCUT SCH (09:57)
[2018-08-07] MEDS: CALCIUM ACETATE 667MG CAPSULE PO SCH ×2 (12:57→18:21)
[2018-08-07] MEDS ORDERED: VANCOMYCIN 1 G PREMIX 200 ML IV SCH (14:00)
[2018-08-07] MEDS: DIPHENHYDRAMINE 50MG/ML VIAL IV PRN ×2 (18:45→22:55)
[2018-08-07] MEDS: EPOETIN ALFA 4000UNITS/ML VIAL SUBCUT SCH (21:35)
[2018-08-07] MEDS: NEOMYCIN TOP SCH (21:41)
[2018-08-07] MEDS: POLYMYXIN B TOP SCH (21:41)
[2018-08-07] MEDS: DEXAMETHASONE TOP SCH (21:41)
[2018-08-08] VITALS (20 sets, daily range): BP systolic 103–159; BP diastolic 49–83
[2018-08-08] MEDS: DEXTROSE 50% WATER 50ML SYRINGE IV PRN ×2 (03:40→06:35)
[2018-08-08] MEDS: PIPERACILLIN/TAZ 2.25G PREMIX 50 ML IV SCH (03:59)
[2018-08-08] MEDS: CLONIDINE 0.1MG TABLET PO SCH ×2 (06:00→14:22)
[2018-08-08] MEDS: BLOOD SUGAR DIAGNOSTIC STRIP TEST SCH ×2 (06:32→11:36)
[2018-08-08] MEDS: CALCIUM ACETATE 667MG CAPSULE PO SCH ×2 (07:20→14:23)
[2018-08-08] MEDS: INSULIN LISPRO 100 UNITS/ML SUBCUT SCH ×2 (07:20→11:37)
[2018-08-08] MEDS ORDERED: SODIUM BICARBONATE 4% (2.4MEQ) 5ML VIAL IV ONE (07:47)
[2018-08-08] MEDS ORDERED: LIDOCAINE HCL 1% 20ML VIAL (Pyxis) INJ ONE (07:48)
[2018-08-08] MEDS ORDERED: FENTANYL CITRATE/PF 50MCG/ML 2ML VIAL ONE (08:39)
[2018-08-08] MEDS ORDERED: FOLIC ACID/VITAMIN B COMP W-C TABLET PO SCH (09:00)
[2018-08-08] MEDS ORDERED: FENTANYL CITRATE/PF 50MCG/ML 2ML VIAL IV SCH (09:15)
[2018-08-08] MEDS: POLYMYXIN B OP SCH ×2 (10:00→14:23)
[2018-08-08] MEDS: DEXAMETHASONE OP SCH ×2 (10:00→14:23)
[2018-08-08] MEDS: NEOMYCIN OP SCH ×2 (10:00→14:23)
[2018-08-08 10:41] LABS: BASOPHILS % 2.8 % (0.0-2.0); EOSINOPHILS % 5.3 % (0.0-5.0); HEMATOCRIT. 24.8 % (42.0-52.0); HEMOGLOBIN. 8.3 g/dL (14.0-18.0); LYMPHOCYTES % 19.3 % (20.0-50.0); MEAN CORPUSCULAR HEMOGLOBIN 27.2 pg (28.0-32.0); MEAN CORPUSCULAR VOLUME 81.6 fL (80.0-94.0); MEAN PLATELET VOLUME 7.8 fl (7.4-10.4); NEUTROPHILS % 62.6 % (40.0-76.0); PLATELET 468 x1000/uL (130-400); RED BLOOD CELL COUNT 3.04 mill/uL (4.7-6.1); RED CELL DISTRIBUTION WIDTH 16.6 % (11.6-14.6)
[2018-08-08 10:57] LABS: PHOSPHORUS 6.9 mg/dL (2.5-4.9)
[2018-08-08] MEDS: ASPIRIN 81MG EC TABLET PO SCH (11:25)
[2018-08-08] MEDS: LOSARTAN POTASSIUM 100 MG TABLET PO SCH (11:25)
[2018-08-08] MEDS: MINOXIDIL 10MG TABLET PO SCH (11:27)
[2018-08-08] MEDS: HYDRALAZINE HCL 100MG TABLET PO SCH (11:28)
[2018-08-08] MEDS: DEXAMETHASONE TOP SCH (11:30)
[2018-08-08] MEDS: OFLOXACIN 0.3% OP SCH ×2 (11:30→14:22)
[2018-08-08] MEDS: NEOMYCIN TOP SCH (11:30)
[2018-08-08] MEDS: POLYMYXIN B TOP SCH (11:30)
[2018-08-08] MEDS: ENOXAPARIN 40MG/0.4ML SYR SUBCUT SCH (11:31)
[2018-08-08] MEDS: INSULIN GLARGINE UD 100 UNITS/ML SYR SUBCUT SCH (11:36)
== END 2018-08-08 16:18 | DRG 291 ==
LOC: ER 03:24 → MICUSO 05:16 → EDBEDREQ 05:19 → EDBEDREQTM 05:19 → CANRESERV 07:17 → ENRESERV 07:17 → EDBEDREQSVC 11:00 → CANBEDREQ 11:01 → EDBEDREQ 11:04 → ENRESERV 13:14 → 3WST 08-05 17:20
PROVIDERS: ADMIT Internal Medicine Nephrology; ATTEND Internal Medicine Nephrology
PROC: 5A1D70Z Performance of Urinary Filtration, Intermittent, Less than 6 Hours Per Day (ICD-10-PCS; 2018-08-04)
PROC: 05PYX3Z Removal of Infusion Device from Upper Vein, External Approach (ICD-10-PCS; principal; 2018-08-05)
PROC: 05HQ33Z Insertion of Infusion Device into Left External Jugular Vein, Percutaneous Approach (ICD-10-PCS; 2018-08-06)
PROC: B5141ZA Fluoroscopy of Left Jugular Veins using Low Osmolar Contrast, Guidance (ICD-10-PCS; 2018-08-06)
PROC: B544ZZA Ultrasonography of Left Jugular Veins, Guidance (ICD-10-PCS; 2018-08-06)
PROC: 5A1D70Z Performance of Urinary Filtration, Intermittent, Less than 6 Hours Per Day (ICD-10-PCS; 2018-08-07)
PROC: 0JH63XZ Insertion of Tunneled Vascular Access Device into Chest Subcutaneous Tissue and Fascia, Percutaneous Approach (ICD-10-PCS; 2018-08-08)
PROC: 02HV33Z Insertion of Infusion Device into Superior Vena Cava, Percutaneous Approach (ICD-10-PCS; 2018-08-08)
PROC: B5181ZA Fluoroscopy of Superior Vena Cava using Low Osmolar Contrast, Guidance (ICD-10-PCS; 2018-08-08)
PROC: 05PYX3Z Removal of Infusion Device from Upper Vein, External Approach (ICD-10-PCS; 2018-08-08)
PROC: 5A1D70Z Performance of Urinary Filtration, Intermittent, Less than 6 Hours Per Day (ICD-10-PCS; 2018-08-08)
DX: I13.2 Hypertensive heart and chronic kidney disease with heart failure and with stage 5 chronic kidney disease, or end stage renal disease (principal); J96.00 Acute respiratory failure, unspecified whether with hypoxia or hypercapnia; E43 Unspecified severe protein-calorie malnutrition; N18.6 End stage renal disease; G92 Toxic encephalopathy; I50.23 Acute on chronic systolic (congestive) heart failure; I16.1 Hypertensive emergency; E87.8 Other disorders of electrolyte and fluid balance, not elsewhere classified; E83.52 Hypercalcemia; E11.22 Type 2 diabetes mellitus with diabetic chronic kidney disease; D63.8 Anemia in other chronic diseases classified elsewhere; H54.61 Unqualified visual loss, right eye, normal vision left eye; E87.70 Fluid overload, unspecified; Z99.2 Dependence on renal dialysis; Z68.25 Body mass index [BMI] 25.0-25.9, adult; Z79.4 Long term (current) use of insulin; Z82.49 Family history of ischemic heart disease and other diseases of the circulatory system; Z83.3 Family history of diabetes mellitus; Z88.8 Allergy status to other drugs, medicaments and biological substances; Z79.899 Other long term (current) drug therapy
CPT/HCPCS: 36415; 36558; 36569; 36589; 36600; 71045; 77001; 80048; 80202; 82375; 82550; 82553; 82607; 82728; 82805; 82962; 83540; 83550; 83735; 83880; 84100; 84134; 84145; 84443; 84484; 86140; 87070; 93005; 93306; 94640; 96374; 97116; 97162; 97530; 99152; 99153; 99285; C1750; C1752; C1769; J0360; J0885; J1200; J1642; J1644; J1650; J1815; J1940; J2270; J2543; J3010; J3370; J3490; J7050; J7060; J7620; G0500

== ENCOUNTER 2018-08-08 16:20 | Inpatient (IN) | payer MEDICARE, MEDICAID ==
[~2018-08-08] VITALS: Ht 190.5 cm; Wt 92.5 kg
[2018-08-08 16:20] VITALS: BP 123/67
[2018-08-08] MEDS ORDERED: MAGNESIUM/ALUMINUM HYDROXIDE/SIMETHICONE 30ML UDC PO PRN (17:30)
[2018-08-08] MEDS ORDERED: DEXTROSE 50% WATER 50ML SYRINGE IV PRN (17:45)
[2018-08-08] MEDS ORDERED: CLONIDINE 0.1MG TABLET PO PRN (18:08)
[2018-08-08 18:29] VITALS: BP 123/67
[2018-08-08] MEDS ORDERED: LACTULOSE 20G/30ML UDC PO PRN (19:00)
[2018-08-08 20:00] VITALS: BP 158/71
[2018-08-08] MEDS: DOCUSATE SODIUM 250MG CAPSULE PO SCH (20:37)
[2018-08-08] MEDS: ACETAMINOPHEN 325MG TABLET PO PRN (20:38)
[2018-08-08] MEDS: MINOXIDIL 2.5MG TABLET PO SCH (20:38)
[2018-08-08] MEDS: BLOOD SUGAR DIAGNOSTIC STRIP TEST SCH (20:39)
[2018-08-08] MEDS ORDERED: LACTULOSE 20G/30ML UDC PO NR (21:00)
[2018-08-08] MEDS: INSULIN GLARGINE UD 100 UNITS/ML SYR SUBCUT SCH (21:00)
[2018-08-08] MEDS ORDERED: NA PHOS,M-B/NA PHOS,DI-BA ENEMA 118ML PR PRN (21:00)
[2018-08-08] MEDS: INSULIN LISPRO 100 UNITS/ML SUBCUT SCH (21:02)
[2018-08-08] MEDS: HYDRALAZINE HCL 50MG TABLET PO SCH (21:02)
[2018-08-08] MEDS: CLONIDINE 0.1MG TABLET PO SCH (22:00)
[2018-08-08] MEDS: POLYMYXIN B TOP SCH (22:15)
[2018-08-08] MEDS: OFLOXACIN 0.3% OP SCH (22:15)
[2018-08-08] MEDS: POLYMYXIN B OP SCH (22:15)
[2018-08-08] MEDS: DEXAMETHASONE TOP SCH (22:15)
[2018-08-08] MEDS: NEOMYCIN OP SCH (22:15)
[2018-08-08] MEDS: NEOMYCIN TOP SCH (22:15)
[2018-08-08] MEDS: PIPERACILLIN/TAZ 2.25G PREMIX 50 ML IV SCH (22:15)
[2018-08-08] MEDS: DEXAMETHASONE OP SCH (22:15)
[2018-08-08] MEDS: DIPHENHYDRAMINE 25MG CAPSULE PO PRN (22:32)
[2018-08-09] MEDS: CLONIDINE 0.1MG TABLET PO SCH ×3 (06:00→22:15)
[2018-08-09] MEDS: INSULIN LISPRO 100 UNITS/ML SUBCUT SCH ×5 (06:00→21:00)
[2018-08-09] MEDS: BLOOD SUGAR DIAGNOSTIC STRIP TEST SCH ×4 (06:00→21:11)
[2018-08-09 08:04] VITALS: BP 151/58
[2018-08-09] MEDS: ASPIRIN 81MG EC TABLET PO SCH (08:23)
[2018-08-09] MEDS: MINOXIDIL 2.5MG TABLET PO SCH ×2 (08:24→21:10)
[2018-08-09] MEDS: ENOXAPARIN 40MG/0.4ML SYR SUBCUT SCH (08:24)
[2018-08-09] MEDS: LOSARTAN POTASSIUM 100 MG TABLET PO SCH (08:25)
[2018-08-09] MEDS: DOCUSATE SODIUM 250MG CAPSULE PO SCH (08:31)
[2018-08-09] MEDS: PIPERACILLIN/TAZ 2.25G PREMIX 50 ML IV SCH ×2 (08:47→21:08)
[2018-08-09] MEDS: HYDRALAZINE HCL 50MG TABLET PO SCH ×2 (08:50→21:10)
[2018-08-09] MEDS: OFLOXACIN 0.3% OP SCH ×3 (08:51→17:43)
[2018-08-09] MEDS: DEXAMETHASONE OP SCH ×4 (08:51→21:09)
[2018-08-09] MEDS: NEOMYCIN OP SCH ×4 (08:51→21:09)
[2018-08-09] MEDS: FOLIC ACID/VITAMIN B COMP W-C TABLET PO SCH (08:51)
[2018-08-09] MEDS: POLYMYXIN B OP SCH ×4 (08:51→21:09)
[2018-08-09] MEDS ORDERED: CALCIUM ACETATE 667MG CAPSULE PO ONE (09:00)
[2018-08-09] MEDS: INSULIN GLARGINE UD 100 UNITS/ML SYR SUBCUT SCH ×2 (10:41→22:27)
[2018-08-09 11:18] VITALS: BP 133/62
[2018-08-09 17:58] VITALS: BP 157/76
[2018-08-09] MEDS: ACETAMINOPHEN 325MG TABLET PO PRN (19:47)
[2018-08-09] MEDS: POLYMYXIN B TOP SCH (21:09)
[2018-08-09] MEDS: DEXAMETHASONE TOP SCH (21:09)
[2018-08-09] MEDS: NEOMYCIN TOP SCH (21:09)
[2018-08-09] MEDS: EPOETIN ALFA 4000UNITS/ML VIAL SUBCUT SCH (21:11)
[2018-08-09] MEDS: DIPHENHYDRAMINE 25MG CAPSULE PO PRN (22:15)
[2018-08-10] MEDS: CLONIDINE 0.1MG TABLET PO SCH ×3 (06:26→21:58)
[2018-08-10] MEDS: BLOOD SUGAR DIAGNOSTIC STRIP TEST SCH ×4 (06:26→21:44)
[2018-08-10] MEDS: INSULIN LISPRO 100 UNITS/ML SUBCUT SCH ×7 (06:29→21:44)
[2018-08-10 07:13] LABS: BASOPHILS % 1.5 % (0.0-2.0); EOSINOPHILS % 4.4 % (0.0-5.0); HEMATOCRIT. 24.9 % (42.0-52.0); HEMOGLOBIN. 8.2 g/dL (14.0-18.0); LYMPHOCYTES % 14.6 % (20.0-50.0); MEAN CORPUSCULAR HEMOGLOBIN 27.5 pg (28.0-32.0); MEAN CORPUSCULAR VOLUME 83.2 fL (80.0-94.0); MEAN PLATELET VOLUME 8.2 fl (7.4-10.4); NEUTROPHILS % 69.5 % (40.0-76.0); PLATELET 507 x1000/uL (130-400); RED BLOOD CELL COUNT 2.99 mill/uL (4.7-6.1); RED CELL DISTRIBUTION WIDTH 16.8 % (11.6-14.6)
[2018-08-10] MEDS: LOSARTAN POTASSIUM 100 MG TABLET PO SCH (07:51)
[2018-08-10] MEDS: HYDRALAZINE HCL 50MG TABLET PO SCH (07:52)
[2018-08-10] MEDS: MINOXIDIL 2.5MG TABLET PO SCH ×2 (07:53→21:41)
[2018-08-10 07:59] VITALS: BP 180/79
[2018-08-10 08:00] LABS: PHOSPHORUS 6.7 mg/dL (2.5-4.9)
[2018-08-10] MEDS: FOLIC ACID/VITAMIN B COMP W-C TABLET PO SCH (08:00)
[2018-08-10] MEDS: DOCUSATE SODIUM 250MG CAPSULE PO SCH (08:00)
[2018-08-10] MEDS: ASPIRIN 81MG EC TABLET PO SCH (08:00)
[2018-08-10 08:01] VITALS: BP 173/74
[2018-08-10] MEDS: ENOXAPARIN 40MG/0.4ML SYR SUBCUT SCH (08:01)
[2018-08-10] MEDS: PIPERACILLIN/TAZ 2.25G PREMIX 50 ML IV SCH ×2 (08:02→21:39)
[2018-08-10] MEDS: DEXAMETHASONE OP SCH ×4 (08:02→21:39)
[2018-08-10] MEDS: OFLOXACIN 0.3% OP SCH ×3 (08:02→17:12)
[2018-08-10] MEDS: NEOMYCIN OP SCH ×4 (08:02→21:39)
[2018-08-10] MEDS: POLYMYXIN B OP SCH ×4 (08:02→21:39)
[2018-08-10] MEDS ORDERED: MINOXIDIL 2.5MG TABLET PO ONE (09:30)
[2018-08-10 09:38] VITALS: BP 149/67
[2018-08-10] MEDS: INSULIN GLARGINE UD 100 UNITS/ML SYR SUBCUT SCH ×2 (09:40→22:00)
[2018-08-10] MEDS: CALCIUM ACETATE 667MG CAPSULE PO SCH ×2 (13:03→17:12)
[2018-08-10 14:18] VITALS: BP 151/63
[2018-08-10 20:00] VITALS: BP 170/80
[2018-08-10] MEDS ORDERED: METOPROLOL TARTRATE 25MG TABLET PO SCH (21:00)
[2018-08-10] MEDS: DEXAMETHASONE TOP SCH (21:45)
[2018-08-10] MEDS: NEOMYCIN TOP SCH (21:45)
[2018-08-10] MEDS: POLYMYXIN B TOP SCH (21:45)
[2018-08-10] MEDS: DIPHENHYDRAMINE 25MG CAPSULE PO PRN (23:16)
[2018-08-11] MEDS: INSULIN LISPRO 100 UNITS/ML SUBCUT SCH ×7 (05:46→22:00)
[2018-08-11] MEDS: BLOOD SUGAR DIAGNOSTIC STRIP TEST SCH ×4 (05:46→21:58)
[2018-08-11] MEDS: CLONIDINE 0.1MG TABLET PO SCH ×3 (05:48→23:59)
[2018-08-11] MEDS: ONDANSETRON 4MG ODT PO PRN ×2 (06:29→09:39)
[2018-08-11 07:25] LABS: BASOPHILS % 1.7 % (0.0-2.0); EOSINOPHILS % 5.3 % (0.0-5.0); HEMATOCRIT. 24.6 % (42.0-52.0); LYMPHOCYTES % 15.8 % (20.0-50.0); MEAN CORPUSCULAR HEMOGLOBIN 26.6 pg (28.0-32.0); MEAN CORPUSCULAR VOLUME 82.1 fL (80.0-94.0); MEAN PLATELET VOLUME 8.3 fl (7.4-10.4); MONOCYTES % 9.4 % (2.0-8.0); NEUTROPHILS % 67.8 % (40.0-76.0); PLATELET 494 x1000/uL (130-400); RED CELL DISTRIBUTION WIDTH 16.8 % (11.6-14.6)
[2018-08-11 08:00] VITALS: BP 161/80
[2018-08-11] MEDS: CALCIUM ACETATE 667MG CAPSULE PO SCH ×3 (08:08→17:27)
[2018-08-11] MEDS: ASPIRIN 81MG EC TABLET PO SCH (08:08)
[2018-08-11] MEDS: FOLIC ACID/VITAMIN B COMP W-C TABLET PO SCH (08:09)
[2018-08-11] MEDS: MINOXIDIL 2.5MG TABLET PO SCH ×2 (08:09→21:57)
[2018-08-11] MEDS: DOCUSATE SODIUM 250MG CAPSULE PO SCH (08:09)
[2018-08-11] MEDS: LOSARTAN POTASSIUM 100 MG TABLET PO SCH (08:09)
[2018-08-11] MEDS: OFLOXACIN 0.3% OP SCH ×3 (08:09→17:27)
[2018-08-11] MEDS: ENOXAPARIN 40MG/0.4ML SYR SUBCUT SCH (08:10)
[2018-08-11] MEDS: PIPERACILLIN/TAZ 2.25G PREMIX 50 ML IV SCH ×2 (08:11→21:59)
[2018-08-11 08:34] LABS: PHOSPHORUS 8.8 mg/dL (2.5-4.9)
[2018-08-11] MEDS: DEXAMETHASONE OP SCH ×4 (09:21→21:57)
[2018-08-11] MEDS: POLYMYXIN B OP SCH ×4 (09:21→21:57)
[2018-08-11] MEDS: NEOMYCIN OP SCH ×4 (09:21→21:57)
[2018-08-11] MEDS: INSULIN GLARGINE UD 100 UNITS/ML SYR SUBCUT SCH ×2 (10:42→22:02)
[2018-08-11] MEDS ORDERED: HEPARIN SODIUM 1,000 UNIT/1ML VIAL IV NR (19:42)
[2018-08-11 20:00] VITALS: BP 188/88
[2018-08-11] MEDS: NEOMYCIN TOP SCH (21:58)
[2018-08-11] MEDS: POLYMYXIN B TOP SCH (21:58)
[2018-08-11] MEDS: DEXAMETHASONE TOP SCH (21:58)
[2018-08-11] MEDS: DIPHENHYDRAMINE 25MG CAPSULE PO PRN (22:06)
[2018-08-12] MEDS: BLOOD SUGAR DIAGNOSTIC STRIP TEST SCH ×4 (05:36→21:00)
[2018-08-12] MEDS: CLONIDINE 0.1MG TABLET PO SCH (05:36)
[2018-08-12] MEDS: INSULIN LISPRO 100 UNITS/ML SUBCUT SCH ×7 (06:19→22:01)
[2018-08-12 08:13] VITALS: BP 136/93
[2018-08-12] MEDS: FOLIC ACID/VITAMIN B COMP W-C TABLET PO SCH (08:45)
[2018-08-12] MEDS: MINOXIDIL 2.5MG TABLET PO SCH ×2 (08:45→21:59)
[2018-08-12] MEDS: ASPIRIN 81MG EC TABLET PO SCH (08:45)
[2018-08-12] MEDS: LOSARTAN POTASSIUM 100 MG TABLET PO SCH (08:45)
[2018-08-12] MEDS: CALCIUM ACETATE 667MG CAPSULE PO SCH ×3 (08:45→17:39)
[2018-08-12] MEDS: DOCUSATE SODIUM 250MG CAPSULE PO SCH (08:45)
[2018-08-12] MEDS: ENOXAPARIN 40MG/0.4ML SYR SUBCUT SCH (08:46)
[2018-08-12] MEDS: POLYMYXIN B OP SCH ×4 (08:49→22:06)
[2018-08-12] MEDS: OFLOXACIN 0.3% OP SCH ×3 (08:49→17:39)
[2018-08-12] MEDS: DEXAMETHASONE OP SCH ×4 (08:49→22:06)
[2018-08-12] MEDS: NEOMYCIN OP SCH ×4 (08:49→22:06)
[2018-08-12] MEDS: ACETAMINOPHEN 325MG TABLET PO PRN (08:54)
[2018-08-12] MEDS: PIPERACILLIN/TAZ 2.25G PREMIX 50 ML IV SCH (08:54)
[2018-08-12] MEDS: INSULIN GLARGINE UD 100 UNITS/ML SYR SUBCUT SCH ×2 (11:03→22:02)
[2018-08-12] MEDS ORDERED: CLONIDINE HCL 0.2MG/24HR PATCH TD SCH (12:30)
[2018-08-12 20:00] VITALS: BP 169/80
[2018-08-12] MEDS: DEXAMETHASONE TOP SCH ×2 (22:04→22:05)
[2018-08-12] MEDS: NEOMYCIN TOP SCH ×2 (22:04→22:05)
[2018-08-12] MEDS: POLYMYXIN B TOP SCH ×2 (22:04→22:05)
[2018-08-13] MEDS: EPOETIN ALFA 4000UNITS/ML VIAL SUBCUT SCH (00:33)
[2018-08-13] MEDS: IPRATROPIUM/ALBUTEROL 0.5-3(2.5)MG/3ML NEB HHN PRN ×2 (00:55→05:35)
[2018-08-13] MEDS: INSULIN LISPRO 100 UNITS/ML SUBCUT SCH ×8 (05:40→21:57)
[2018-08-13] MEDS: BLOOD SUGAR DIAGNOSTIC STRIP TEST SCH ×4 (05:40→21:58)
[2018-08-13] MEDS: ACETAMINOPHEN 325MG TABLET PO PRN (05:41)
[2018-08-13 07:34] LABS: BASOPHILS % 2.4 % (0.0-2.0); EOSINOPHILS % 7.1 % (0.0-5.0); HEMATOCRIT. 21.2 % (42.0-52.0); HEMOGLOBIN. 7.2 g/dL (14.0-18.0); LYMPHOCYTES % 19.7 % (20.0-50.0); MEAN CORPUSCULAR HEMOGLOBIN 27.5 pg (28.0-32.0); MEAN CORPUSCULAR VOLUME 81.2 fL (80.0-94.0); MEAN PLATELET VOLUME 8.3 fl (7.4-10.4); MONOCYTES % 10.5 % (2.0-8.0); NEUTROPHILS % 60.3 % (40.0-76.0); PLATELET 448 x1000/uL (130-400); RED BLOOD CELL COUNT 2.61 mill/uL (4.7-6.1); RED CELL DISTRIBUTION WIDTH 16.1 % (11.6-14.6)
[2018-08-13 08:00] VITALS: BP 139/55
[2018-08-13 08:30] LABS: PHOSPHORUS 8.5 mg/dL (2.5-4.9)
[2018-08-13] MEDS: MINOXIDIL 2.5MG TABLET PO SCH ×2 (09:00→21:56)
[2018-08-13] MEDS: LOSARTAN POTASSIUM 100 MG TABLET PO SCH (09:00)
[2018-08-13] MEDS: OFLOXACIN 0.3% OP SCH ×3 (10:06→17:33)
[2018-08-13] MEDS: DEXAMETHASONE OP SCH ×4 (10:06→22:00)
[2018-08-13] MEDS: POLYMYXIN B OP SCH ×4 (10:06→22:00)
[2018-08-13] MEDS: NEOMYCIN OP SCH ×4 (10:06→22:00)
[2018-08-13] MEDS: ASPIRIN 81MG EC TABLET PO SCH (10:07)
[2018-08-13] MEDS: CALCIUM ACETATE 667MG CAPSULE PO SCH ×3 (10:07→17:32)
[2018-08-13] MEDS: DOCUSATE SODIUM 250MG CAPSULE PO SCH (10:07)
[2018-08-13] MEDS: FOLIC ACID/VITAMIN B COMP W-C TABLET PO SCH (10:07)
[2018-08-13] MEDS: ENOXAPARIN 40MG/0.4ML SYR SUBCUT SCH (10:08)
[2018-08-13] MEDS: INSULIN GLARGINE UD 100 UNITS/ML SYR SUBCUT SCH ×2 (10:14→21:58)
[2018-08-13] MEDS ORDERED: HEPARIN SODIUM 1,000 UNIT/1ML VIAL IV ONE (19:00)
[2018-08-13 20:00] VITALS: BP 161/76
[2018-08-13] MEDS: DIPHENHYDRAMINE 25MG CAPSULE PO PRN (22:09)
[2018-08-14] MEDS: BLOOD SUGAR DIAGNOSTIC STRIP TEST SCH ×4 (06:33→21:46)
[2018-08-14 06:38] LABS: BASOPHILS % 2.7 % (0.0-2.0); EOSINOPHILS % 8.6 % (0.0-5.0); LYMPHOCYTES % 16.8 % (20.0-50.0); MEAN CORPUSCULAR HEMOGLOBIN 27.5 pg (28.0-32.0); MEAN CORPUSCULAR VOLUME 81.6 fL (80.0-94.0); MEAN PLATELET VOLUME 8.1 fl (7.4-10.4); MONOCYTES % 10.3 % (2.0-8.0); NEUTROPHILS % 61.6 % (40.0-76.0); PLATELET 414 x1000/uL (130-400); RED BLOOD CELL COUNT 2.54 mill/uL (4.7-6.1); RED CELL DISTRIBUTION WIDTH 16.3 % (11.6-14.6)
[2018-08-14 07:00] LABS: HEMATOCRIT. 20.7 % (42.0-52.0)
[2018-08-14] MEDS: INSULIN LISPRO 100 UNITS/ML SUBCUT SCH ×7 (07:00→21:00)
[2018-08-14 08:09] VITALS: BP 157/70
[2018-08-14] MEDS: DOCUSATE SODIUM 250MG CAPSULE PO SCH (08:36)
[2018-08-14] MEDS: CALCIUM ACETATE 667MG CAPSULE PO SCH ×3 (08:36→18:16)
[2018-08-14] MEDS: MINOXIDIL 2.5MG TABLET PO SCH ×2 (08:36→21:49)
[2018-08-14] MEDS: FOLIC ACID/VITAMIN B COMP W-C TABLET PO SCH (08:36)
[2018-08-14] MEDS: LOSARTAN POTASSIUM 100 MG TABLET PO SCH (08:37)
[2018-08-14] MEDS: POLYMYXIN B OP SCH ×4 (08:37→21:48)
[2018-08-14] MEDS: OFLOXACIN 0.3% OP SCH ×3 (08:37→18:17)
[2018-08-14] MEDS: NEOMYCIN OP SCH ×4 (08:37→21:48)
[2018-08-14] MEDS: DEXAMETHASONE OP SCH ×4 (08:37→21:48)
[2018-08-14] MEDS: ENOXAPARIN 40MG/0.4ML SYR SUBCUT SCH (09:00)
[2018-08-14] MEDS: ASPIRIN 81MG EC TABLET PO SCH (09:00)
[2018-08-14] MEDS: INSULIN GLARGINE UD 100 UNITS/ML SYR SUBCUT SCH ×2 (10:30→21:53)
[2018-08-14 20:00] VITALS: BP 147/67
[2018-08-14] MEDS ORDERED: EPOETIN ALFA 10000UNITS/ML VIAL SUBCUT SCH (21:00)
[2018-08-14] MEDS: POLYMYXIN B TOP SCH (21:48)
[2018-08-14] MEDS: NEOMYCIN TOP SCH (21:48)
[2018-08-14] MEDS: DEXAMETHASONE TOP SCH (21:48)
[2018-08-15] MEDS: BLOOD SUGAR DIAGNOSTIC STRIP TEST SCH ×4 (06:30→21:00)
[2018-08-15 06:34] LABS: CHLORIDE 98 mEq/L (98-107)
[2018-08-15 06:48] LABS: BASOPHILS % 2.2 % (0.0-2.0); EOSINOPHILS % 6.7 % (0.0-5.0); HEMATOCRIT. 21.4 % (42.0-52.0); HEMOGLOBIN. 7.2 g/dL (14.0-18.0); LYMPHOCYTES % 15.2 % (20.0-50.0); MEAN CORPUSCULAR HEMOGLOBIN 27.5 pg (28.0-32.0); MEAN CORPUSCULAR VOLUME 81.4 fL (80.0-94.0); MEAN PLATELET VOLUME 8.2 fl (7.4-10.4); MONOCYTES % 8.8 % (2.0-8.0); NEUTROPHILS % 67.1 % (40.0-76.0); PLATELET 411 x1000/uL (130-400); RED BLOOD CELL COUNT 2.63 mill/uL (4.7-6.1); RED CELL DISTRIBUTION WIDTH 16.5 % (11.6-14.6)
[2018-08-15] MEDS: INSULIN LISPRO 100 UNITS/ML SUBCUT SCH ×7 (07:00→21:00)
[2018-08-15 07:27] LABS: PHOSPHORUS 8.1 mg/dL (2.5-4.9)
[2018-08-15 08:26] VITALS: BP 158/71
[2018-08-15] MEDS: ASPIRIN 81MG EC TABLET PO SCH (09:00)
[2018-08-15] MEDS: ENOXAPARIN 30MG/0.3ML SYR SUBCUT SCH (09:00)
[2018-08-15] MEDS: NEOMYCIN OP SCH ×4 (09:13→23:13)
[2018-08-15] MEDS: POLYMYXIN B OP SCH ×4 (09:13→23:13)
[2018-08-15] MEDS: DEXAMETHASONE OP SCH ×4 (09:13→23:13)
[2018-08-15] MEDS: OFLOXACIN 0.3% OP SCH ×3 (09:13→17:16)
[2018-08-15] MEDS: CALCIUM ACETATE 667MG CAPSULE PO SCH ×3 (09:14→17:16)
[2018-08-15] MEDS: MINOXIDIL 2.5MG TABLET PO SCH ×2 (09:14→21:00)
[2018-08-15] MEDS: DOCUSATE SODIUM 250MG CAPSULE PO SCH (09:14)
[2018-08-15] MEDS: LOSARTAN POTASSIUM 100 MG TABLET PO SCH (09:14)
[2018-08-15] MEDS: FOLIC ACID/VITAMIN B COMP W-C TABLET PO SCH (09:14)
[2018-08-15] MEDS: INSULIN GLARGINE UD 100 UNITS/ML SYR SUBCUT SCH ×2 (10:58→22:00)
[2018-08-15] MEDS: IPRATROPIUM/ALBUTEROL 0.5-3(2.5)MG/3ML NEB HHN PRN ×2 (11:44→21:30)
[2018-08-15 14:44] LABS: BASOPHILS % 1.3 % (0.0-2.0); EOSINOPHILS % 5.1 % (0.0-5.0); MEAN CORPUSCULAR HEMOGLOBIN 27.5 pg (28.0-32.0); MEAN PLATELET VOLUME 8.5 fl (7.4-10.4); MONOCYTES % 8.9 % (2.0-8.0); NEUTROPHILS % 73.7 % (40.0-76.0); PLATELET 375 x1000/uL (130-400); RED BLOOD CELL COUNT 2.51 mill/uL (4.7-6.1); RED CELL DISTRIBUTION WIDTH 16.4 % (11.6-14.6)
[2018-08-15 14:56] LABS: HEMATOCRIT. 20.5 % (42.0-52.0); HEMOGLOBIN. 6.9 g/dL (14.0-18.0)
[2018-08-15 20:00] VITALS: BP 174/85
[2018-08-15] MEDS ORDERED: HEPARIN SODIUM 1,000 UNIT/1ML VIAL IV ONE (21:00)
[2018-08-15 22:20] VITALS: BP 159/74
[2018-08-15 22:41] VITALS: BP 176/78
[2018-08-15] MEDS: NEOMYCIN TOP SCH (23:13)
[2018-08-15] MEDS: DEXAMETHASONE TOP SCH (23:13)
[2018-08-15] MEDS: POLYMYXIN B TOP SCH (23:13)
[2018-08-16] MEDS: DIPHENHYDRAMINE 25MG CAPSULE PO PRN ×2 (01:12→23:02)
[2018-08-16] MEDS: BLOOD SUGAR DIAGNOSTIC STRIP TEST SCH ×4 (06:05→21:00)
[2018-08-16] MEDS: INSULIN LISPRO 100 UNITS/ML SUBCUT SCH ×7 (06:49→21:00)
[2018-08-16 06:51] LABS: BASOPHILS % 1.9 % (0.0-2.0); EOSINOPHILS % 6.9 % (0.0-5.0); HEMATOCRIT. 22.7 % (42.0-52.0); HEMOGLOBIN. 7.8 g/dL (14.0-18.0); LYMPHOCYTES % 14.8 % (20.0-50.0); MEAN CORPUSCULAR HEMOGLOBIN 28.3 pg (28.0-32.0); MEAN CORPUSCULAR VOLUME 82.4 fL (80.0-94.0); MEAN PLATELET VOLUME 8.5 fl (7.4-10.4); MONOCYTES % 9.8 % (2.0-8.0); NEUTROPHILS % 66.6 % (40.0-76.0); PLATELET 340 x1000/uL (130-400); RED BLOOD CELL COUNT 2.75 mill/uL (4.7-6.1); RED CELL DISTRIBUTION WIDTH 16.2 % (11.6-14.6)
[2018-08-16 07:06] LABS: PHOSPHORUS 5.2 mg/dL (2.5-4.9)
[2018-08-16 08:00] VITALS: BP 160/74
[2018-08-16] MEDS: POLYMYXIN B OP SCH ×4 (09:22→22:51)
[2018-08-16] MEDS: NEOMYCIN OP SCH ×4 (09:22→22:51)
[2018-08-16] MEDS: OFLOXACIN 0.3% OP SCH ×3 (09:22→17:39)
[2018-08-16] MEDS: DEXAMETHASONE OP SCH ×4 (09:22→22:51)
[2018-08-16] MEDS: MINOXIDIL 2.5MG TABLET PO SCH ×2 (09:23→22:53)
[2018-08-16] MEDS: LOSARTAN POTASSIUM 100 MG TABLET PO SCH (09:23)
[2018-08-16] MEDS: ASPIRIN 81MG EC TABLET PO SCH (09:23)
[2018-08-16] MEDS: DOCUSATE SODIUM 250MG CAPSULE PO SCH (09:23)
[2018-08-16] MEDS: FOLIC ACID/VITAMIN B COMP W-C TABLET PO SCH (09:23)
[2018-08-16] MEDS: ENOXAPARIN 30MG/0.3ML SYR SUBCUT SCH (09:23)
[2018-08-16] MEDS: CALCIUM ACETATE 667MG CAPSULE PO SCH ×3 (09:23→17:39)
[2018-08-16] MEDS: INSULIN GLARGINE UD 100 UNITS/ML SYR SUBCUT SCH ×2 (10:00→22:00)
[2018-08-16 10:25] VITALS: BP 140/74
[2018-08-16] MEDS ORDERED: CLONIDINE HCL 0.1MG/24HR PATCH TD SCH (15:00)
[2018-08-16] MEDS: HYDRALAZINE HCL 10MG TABLET PO PRN (15:41)
[2018-08-16 16:51] VITALS: BP 183/91
[2018-08-16] MEDS: IPRATROPIUM/ALBUTEROL 0.5-3(2.5)MG/3ML NEB HHN PRN ×2 (17:32→20:11)
[2018-08-16] MEDS ORDERED: METOPROLOL TARTRATE 50MG TABLET PO NR (18:15)
[2018-08-16] MEDS ORDERED: DILTIAZEM HCL 180MG CAPSULE CD 24HR PO SCH (18:45)
[2018-08-16 20:00] VITALS: BP 165/85
[2018-08-16] MEDS: NEOMYCIN TOP SCH (22:51)
[2018-08-16] MEDS: POLYMYXIN B TOP SCH (22:51)
[2018-08-16] MEDS: DEXAMETHASONE TOP SCH (22:51)
[2018-08-17] MEDS: IPRATROPIUM/ALBUTEROL 0.5-3(2.5)MG/3ML NEB HHN PRN ×2 (04:10→07:52)
[2018-08-17] MEDS: BLOOD SUGAR DIAGNOSTIC STRIP TEST SCH ×3 (06:25→16:48)
[2018-08-17] MEDS: INSULIN LISPRO 100 UNITS/ML SUBCUT SCH ×6 (06:25→16:46)
[2018-08-17] MEDS: MINOXIDIL 2.5MG TABLET PO SCH (07:55)
[2018-08-17] MEDS: CALCIUM ACETATE 667MG CAPSULE PO SCH ×3 (08:02→16:36)
[2018-08-17] MEDS: DOCUSATE SODIUM 250MG CAPSULE PO SCH (08:03)
[2018-08-17] MEDS: FOLIC ACID/VITAMIN B COMP W-C TABLET PO SCH (08:03)
[2018-08-17] MEDS: DEXAMETHASONE OP SCH ×3 (08:03→16:36)
[2018-08-17] MEDS: ASPIRIN 81MG EC TABLET PO SCH (08:03)
[2018-08-17] MEDS: ENOXAPARIN 30MG/0.3ML SYR SUBCUT SCH (08:03)
[2018-08-17] MEDS: POLYMYXIN B OP SCH ×3 (08:03→16:36)
[2018-08-17] MEDS: NEOMYCIN OP SCH ×3 (08:03→16:36)
[2018-08-17] MEDS: OFLOXACIN 0.3% OP SCH ×3 (08:03→16:36)
[2018-08-17] MEDS ORDERED: CLONIDINE 0.1MG TABLET PO SCH (08:15)
[2018-08-17 08:27] VITALS: BP 186/95
[2018-08-17] MEDS ORDERED: DILTIAZEM HCL 180MG CAPSULE CD 24HR PO SCH (09:00)
[2018-08-17] MEDS ORDERED: CLONIDINE HCL 0.3MG/24HR PATCH TD SCH (10:00)
[2018-08-17 10:14] VITALS: BP 166/77
[2018-08-17] MEDS: INSULIN GLARGINE UD 100 UNITS/ML SYR SUBCUT SCH (10:29)
[2018-08-17] MEDS ORDERED: HEPARIN SODIUM 1,000 UNIT/1ML VIAL IV SCH (13:45)
[2018-08-17] MEDS: HYDRALAZINE HCL 10MG TABLET PO PRN (15:30)
[2018-08-19] MEDS ORDERED: CLONIDINE HCL 0.3MG/24HR PATCH TD SCH (09:00)
[2018-08-19] MEDS ORDERED: CLONIDINE HCL 0.2MG/24HR PATCH TD SCH (09:00)
== END 2018-08-17 18:20 | DRG 91 ==
PROVIDERS: ADMIT Psychiatry & Neurology Neurology; ATTEND Internal Medicine Nephrology
PROC: 5A1D70Z Performance of Urinary Filtration, Intermittent, Less than 6 Hours Per Day (ICD-10-PCS; 2018-08-09)
PROC: 5A1D70Z Performance of Urinary Filtration, Intermittent, Less than 6 Hours Per Day (ICD-10-PCS; 2018-08-11)
PROC: 5A1D70Z Performance of Urinary Filtration, Intermittent, Less than 6 Hours Per Day (ICD-10-PCS; 2018-08-13)
PROC: 30233N1 Transfusion of Nonautologous Red Blood Cells into Peripheral Vein, Percutaneous Approach (ICD-10-PCS; principal; 2018-08-15)
DX: G92 Toxic encephalopathy (principal); J96.00 Acute respiratory failure, unspecified whether with hypoxia or hypercapnia; N18.6 End stage renal disease; E43 Unspecified severe protein-calorie malnutrition; I13.2 Hypertensive heart and chronic kidney disease with heart failure and with stage 5 chronic kidney disease, or end stage renal disease; I50.20 Unspecified systolic (congestive) heart failure; I16.1 Hypertensive emergency; N25.81 Secondary hyperparathyroidism of renal origin; D63.8 Anemia in other chronic diseases classified elsewhere; E11.22 Type 2 diabetes mellitus with diabetic chronic kidney disease; E83.39 Other disorders of phosphorus metabolism; H54.61 Unqualified visual loss, right eye, normal vision left eye; J44.9 Chronic obstructive pulmonary disease, unspecified; Z79.4 Long term (current) use of insulin; Z99.2 Dependence on renal dialysis; Z79.899 Other long term (current) drug therapy; F32.9 Major depressive disorder, single episode, unspecified; Z68.25 Body mass index [BMI] 25.0-25.9, adult
CPT/HCPCS: 36415; 71045; 80048; 82962; 83735; 84100; 84134; 86850; 86900; 86920; 92523; 93005; 93970; 94640; 97110; 97112; 97116; 97162; 97166; 97530; 97535; G0515; J0885; J1644; J1650; J1815; J2543; J7050; J7620; P9016; Q0162; Q0163

== ENCOUNTER 2018-09-22 06:39 | Inpatient (IN) | payer MEDICARE, MEDICAID ==
[~2018-09-22] VITALS: Ht 182.9 cm; Wt 88.0 kg
[2018-09-22] MEDS ORDERED: SODIUM CHLORIDE 0.9% 1,000 ML IV ONE (07:16)
[2018-09-22] MEDS ORDERED: KETOROLAC 30MG/ML VIAL IV ONE (07:45)
[2018-09-22] MEDS ORDERED: METOCLOPRAMIDE HCL 10MG/2ML VIAL IV ONE (07:45)
[2018-09-22] MEDS ORDERED: HYDRALAZINE 20MG/ML VIAL IV ONE (07:45)
[2018-09-22 08:17] LABS: HEMATOCRIT. 39.2 % (42.0-52.0); HEMOGLOBIN. 13.2 g/dL (14.0-18.0); MEAN CORPUSCULAR HEMOGLOBIN 28.3 pg (28.0-32.0); MEAN CORPUSCULAR VOLUME 83.9 fL (80.0-94.0); MEAN PLATELET VOLUME 9.2 fl (7.4-10.4); PLATELET 271 x1000/uL (130-400); RED BLOOD CELL COUNT 4.68 mill/uL (4.7-6.1); RED CELL DISTRIBUTION WIDTH 16.6 % (11.6-14.6)
[2018-09-22 08:20] LABS: CHLORIDE 89 mEq/L (98-107)
[2018-09-22 08:22] LABS: INR 0.9; PROTHROMBIN TIME 9.6 sec (9.6-11.0)
[2018-09-22] MEDS ORDERED: LORAZEPAM 1MG TABLET PO ONE (08:45)
[2018-09-22] MEDS ORDERED: INSULIN REGULAR (HUMULIN R) 300UNITS/3ML IV ONE (08:45)
[2018-09-22] MEDS ORDERED: DEXTROSE 50% WATER 50ML SYRINGE IV ONE (08:45)
[2018-09-22] MEDS ORDERED: SODIUM BICARBONATE 8.4% 1 MEQ/ML 50ML SYR IV ONE (08:45)
[2018-09-22] MEDS ORDERED: ALBUTEROL (0.083%) 2.5MG/3ML NEB HHN ONE (08:45)
[2018-09-22 08:47] LABS: PLATELET ESTIMATE NORMAL
[2018-09-22] MEDS ORDERED: ALBUTEROL (0.5%) 2.5MG/0.5ML NEB HHN PRN (13:45)
[2018-09-22 14:00] VITALS: BP_SYST 131; BP_SYST 167; BP_DIAS 87; BP_DIAS 88
[2018-09-22] MEDS: ALBUTEROL (0.083%) 2.5MG/3ML NEB HHN PRN ×3 (14:17→20:07)
[2018-09-22] MEDS: FOLIC ACID/VITAMIN B COMP W-C TABLET PO SCH (14:35)
[2018-09-22] MEDS: MINOXIDIL 2.5MG TABLET PO SCH ×2 (14:35→20:43)
[2018-09-22] MEDS ORDERED: CLONIDINE HCL 0.3MG/24HR PATCH TD SCH (15:00)
[2018-09-22 16:00] VITALS: BP 153/80
[2018-09-22] MEDS ORDERED: DEXTROSE 50% WATER 50ML SYRINGE IV PRN (17:00)
[2018-09-22] MEDS: BLOOD SUGAR DIAGNOSTIC STRIP TEST SCH ×2 (17:30→20:44)
[2018-09-22 18:00] VITALS: BP 144/76
[2018-09-22] MEDS: INSULIN LISPRO 100 UNITS/ML SUBCUT SCH ×2 (18:00→20:42)
[2018-09-22] MEDS: SEVELAMER CARBONATE 800 MG TABLET PO SCH (19:39)
[2018-09-22] MEDS: ENOXAPARIN 30MG/0.3ML SYR SUBCUT SCH (19:52)
[2018-09-22 20:00] VITALS: BP 144/56
[2018-09-22] MEDS: MIRTAZAPINE 15MG TABLET PO SCH (20:45)
[2018-09-22] MEDS: ATORVASTATIN CALCIUM 10MG TABLET PO SCH (20:46)
[2018-09-22 22:00] VITALS: BP 139/73
[2018-09-23] VITALS (13 sets, daily range): BP systolic 139–173; BP diastolic 66–96
[2018-09-23] MEDS: ALBUTEROL (0.083%) 2.5MG/3ML NEB HHN PRN ×5 (00:31→16:52)
[2018-09-23 00:39] LABS: CREATINE KINASE 116 IU/L (39-308)
[2018-09-23 00:40] LABS: CREATINE KINASE MB FRACTION 3.4 ng/mL (0.5-3.6)
[2018-09-23 07:18] LABS: CHLORIDE 93 mEq/L (98-107)
[2018-09-23 07:23] LABS: PHOSPHORUS 4.9 mg/dL (2.5-4.9)
[2018-09-23 07:26] LABS: CREATINE KINASE 122 IU/L (39-308)
[2018-09-23 07:29] LABS: CREATINE KINASE MB FRACTION 3.1 ng/mL (0.5-3.6)
[2018-09-23 07:30] LABS: HEMATOCRIT. 33.4 % (42.0-52.0); HEMOGLOBIN. 11.3 g/dL (14.0-18.0); MEAN CORPUSCULAR HEMOGLOBIN 28.6 pg (28.0-32.0); MEAN CORPUSCULAR VOLUME 84.3 fL (80.0-94.0); MEAN PLATELET VOLUME 9.8 fl (7.4-10.4); PLATELET 252 x1000/uL (130-400); RED BLOOD CELL COUNT 3.97 mill/uL (4.7-6.1)
[2018-09-23] MEDS: BLOOD SUGAR DIAGNOSTIC STRIP TEST SCH ×4 (07:59→20:47)
[2018-09-23] MEDS: SEVELAMER CARBONATE 800 MG TABLET PO SCH ×3 (08:48→17:53)
[2018-09-23] MEDS: FOLIC ACID/VITAMIN B COMP W-C TABLET PO SCH (08:48)
[2018-09-23] MEDS: MINOXIDIL 2.5MG TABLET PO SCH ×2 (08:49→20:44)
[2018-09-23] MEDS: INSULIN LISPRO 100 UNITS/ML SUBCUT SCH ×4 (08:50→20:53)
[2018-09-23] MEDS ORDERED: DOCUSATE SODIUM 100MG CAPSULE PO PRN (12:00)
[2018-09-23] MEDS ORDERED: MAGNESIUM/ALUMINUM HYDROXIDE/SIMETHICONE 30ML UDC PO PRN (12:00)
[2018-09-23] MEDS ORDERED: ONDANSETRON HCL 4MG/2ML INJ IV PRN (12:00)
[2018-09-23] MEDS ORDERED: GUAIFENESIN 200MG/10ML SUGAR FREE UDC PO PRN (12:00)
[2018-09-23] MEDS ORDERED: HYDROCODONE/ACETAMINOPHEN 10/325MG TABLET PO PRN (12:00)
[2018-09-23] MEDS ORDERED: DIPHENHYDRAMINE 50MG/ML VIAL IV PRN (12:00)
[2018-09-23] MEDS ORDERED: HYDROMORPHONE HCL/PF 2MG/ML CPJ IV PRN (12:00)
[2018-09-23] MEDS: CLONIDINE 0.1MG TABLET PO PRN (13:27)
[2018-09-23] MEDS: ACETAMINOPHEN 325MG TABLET PO PRN (13:28)
[2018-09-23] MEDS: SODIUM CHLORIDE 0.9% INJ 3ML FLUSH IVF SCH ×2 (13:30→20:53)
[2018-09-23 15:06] LABS: CREATINE KINASE MB FRACTION 2.4 ng/mL (0.5-3.6)
[2018-09-23 16:45] LABS: PLATELET ESTIMATE NORMAL
[2018-09-23] MEDS: ENOXAPARIN 30MG/0.3ML SYR SUBCUT SCH (17:53)
[2018-09-23] MEDS: IPRATROPIUM/ALBUTEROL 0.5-3(2.5)MG/3ML NEB HHN SCH (20:31)
[2018-09-23] MEDS: MIRTAZAPINE 15MG TABLET PO SCH (20:45)
[2018-09-23] MEDS: ATORVASTATIN CALCIUM 10MG TABLET PO SCH (20:47)
[2018-09-24] VITALS (9 sets, daily range): BP systolic 136–160; BP diastolic 76–100
[2018-09-24] MEDS: IPRATROPIUM/ALBUTEROL 0.5-3(2.5)MG/3ML NEB HHN SCH ×3 (02:13→20:24)
[2018-09-24] MEDS: ACETAMINOPHEN 325MG TABLET PO PRN ×2 (03:14→16:25)
[2018-09-24] MEDS: LORAZEPAM 2MG/ML CPJ IV PRN ×2 (03:24→21:10)
[2018-09-24] MEDS: SODIUM CHLORIDE 0.9% INJ 3ML FLUSH IVF SCH ×3 (06:00→22:00)
[2018-09-24 07:05] LABS: HEMATOCRIT. 30.8 % (42.0-52.0); HEMOGLOBIN. 10.4 g/dL (14.0-18.0); MEAN CORPUSCULAR HEMOGLOBIN 27.8 pg (28.0-32.0); MEAN CORPUSCULAR VOLUME 82.5 fL (80.0-94.0); MEAN PLATELET VOLUME 9.8 fl (7.4-10.4); PLATELET 245 x1000/uL (130-400); RED BLOOD CELL COUNT 3.73 mill/uL (4.7-6.1); RED CELL DISTRIBUTION WIDTH 16.1 % (11.6-14.6)
[2018-09-24] MEDS: BLOOD SUGAR DIAGNOSTIC STRIP TEST SCH ×4 (07:30→21:00)
[2018-09-24 07:50] LABS: CHLORIDE 94 mEq/L (98-107)
[2018-09-24 07:57] LABS: PHOSPHORUS 4.2 mg/dL (2.5-4.9)
[2018-09-24 07:58] LABS: LDL CHOLESTEROL 143 mg/dL (5-100)
[2018-09-24 07:59] LABS: T4 FREE 1.19 ng/dL (0.76-1.46)
[2018-09-24] MEDS: INSULIN LISPRO 100 UNITS/ML SUBCUT SCH ×4 (08:00→21:00)
[2018-09-24 08:01] LABS: HDL CHOLESTEROL 26 mg/dL (40-59)
[2018-09-24] MEDS: ASPIRIN 81MG EC TABLET PO SCH (09:24)
[2018-09-24] MEDS: SEVELAMER CARBONATE 800 MG TABLET PO SCH ×3 (09:24→18:15)
[2018-09-24] MEDS: FOLIC ACID/VITAMIN B COMP W-C TABLET PO SCH (09:24)
[2018-09-24 12:05] LABS: PLATELET ESTIMATE NORMAL
[2018-09-24 16:44] LABS: CREATINE KINASE MB FRACTION 1.4 ng/mL (0.5-3.6)
[2018-09-24] MEDS: ENOXAPARIN 30MG/0.3ML SYR SUBCUT SCH (18:15)
[2018-09-24] MEDS ORDERED: BISACODYL 10MG SUPP PR PRN (18:15)
[2018-09-24] MEDS: ATORVASTATIN CALCIUM 10MG TABLET PO SCH (21:00)
[2018-09-24] MEDS: MINOXIDIL 2.5MG TABLET PO SCH (21:21)
[2018-09-24] MEDS: MIRTAZAPINE 15MG TABLET PO SCH (21:21)
[2018-09-25] VITALS (14 sets, daily range): BP systolic 142–168; BP diastolic 77–101
[2018-09-25 00:13] LABS: CREATINE KINASE MB FRACTION 1.1 ng/mL (0.5-3.6)
[2018-09-25] MEDS: IPRATROPIUM/ALBUTEROL 0.5-3(2.5)MG/3ML NEB HHN SCH ×3 (03:19→15:51)
[2018-09-25 06:12] LABS: HEMATOCRIT. 30.6 % (42.0-52.0); HEMOGLOBIN. 10.2 g/dL (14.0-18.0); MEAN CORPUSCULAR HEMOGLOBIN 27.8 pg (28.0-32.0); MEAN CORPUSCULAR VOLUME 83.5 fL (80.0-94.0); MEAN PLATELET VOLUME 10.1 fl (7.4-10.4); PLATELET 296 x1000/uL (130-400); RED BLOOD CELL COUNT 3.67 mill/uL (4.7-6.1); RED CELL DISTRIBUTION WIDTH 16.3 % (11.6-14.6)
[2018-09-25 06:28] LABS: CHLORIDE 97 mEq/L (98-107)
[2018-09-25 06:38] LABS: CREATINE KINASE 83 IU/L (39-308)
[2018-09-25 06:41] LABS: CREATINE KINASE MB FRACTION < 1.0 ng/mL (0.5-3.6)
[2018-09-25] MEDS: BLOOD SUGAR DIAGNOSTIC STRIP TEST SCH ×3 (07:59→16:31)
[2018-09-25] MEDS: INSULIN LISPRO 100 UNITS/ML SUBCUT SCH ×3 (08:00→17:16)
[2018-09-25] MEDS: SEVELAMER CARBONATE 800 MG TABLET PO SCH ×3 (08:47→18:56)
[2018-09-25] MEDS: FOLIC ACID/VITAMIN B COMP W-C TABLET PO SCH (08:47)
[2018-09-25] MEDS: MINOXIDIL 2.5MG TABLET PO SCH (08:47)
[2018-09-25] MEDS: ASPIRIN 81MG EC TABLET PO SCH (08:48)
[2018-09-25 13:19] LABS: PLATELET ESTIMATE NORMAL
[2018-09-25] MEDS: CLONIDINE 0.1MG TABLET PO PRN (15:48)
[2018-09-25] MEDS: ENOXAPARIN 30MG/0.3ML SYR SUBCUT SCH (18:55)
[2018-09-25] MEDS: ACETAMINOPHEN 325MG TABLET PO PRN (18:56)
[2018-09-25] MEDS ORDERED: MINOXIDIL 10MG TABLET PO SCH (21:00)
[2018-09-25] MEDS ORDERED: DOXAZOSIN MESYLATE 2MG TABLET PO SCH (21:00)
== END 2018-09-25 19:59 | DRG 291 ==
LOC: ER 06:39 → EDBEDREQ 09:11 → 5EST 09:28 → EDBEDREQ 09:31 → EDBEDREQTM 09:31 → EDBEDREQSVC 09:31 → ENRESERV 11:35
PROVIDERS: ADMIT Internal Medicine; ATTEND Internal Medicine
PROC: 5A1D70Z Performance of Urinary Filtration, Intermittent, Less than 6 Hours Per Day (ICD-10-PCS; 2018-09-22)
PROC: 5A1D70Z Performance of Urinary Filtration, Intermittent, Less than 6 Hours Per Day (ICD-10-PCS; 2018-09-23)
PROC: 5A1D70Z Performance of Urinary Filtration, Intermittent, Less than 6 Hours Per Day (ICD-10-PCS; principal; 2018-09-25)
DX: I13.2 Hypertensive heart and chronic kidney disease with heart failure and with stage 5 chronic kidney disease, or end stage renal disease (principal); I50.21 Acute systolic (congestive) heart failure; J96.00 Acute respiratory failure, unspecified whether with hypoxia or hypercapnia; N18.6 End stage renal disease; E66.01 Morbid (severe) obesity due to excess calories; E21.3 Hyperparathyroidism, unspecified; E87.5 Hyperkalemia; R74.0 Nonspecific elevation of levels of transaminase and lactic acid dehydrogenase [LDH]; E80.6 Other disorders of bilirubin metabolism; E78.5 Hyperlipidemia, unspecified; E11.22 Type 2 diabetes mellitus with diabetic chronic kidney disease; D63.8 Anemia in other chronic diseases classified elsewhere; Z99.2 Dependence on renal dialysis; Z82.49 Family history of ischemic heart disease and other diseases of the circulatory system; Z83.3 Family history of diabetes mellitus; Z87.891 Personal history of nicotine dependence; Z91.14 Patient's other noncompliance with medication regimen; Z88.8 Allergy status to other drugs, medicaments and biological substances; Z79.899 Other long term (current) drug therapy; Z68.26 Body mass index [BMI] 26.0-26.9, adult
CPT/HCPCS: 36415; 71045; 76700; 78582; 80048; 80061; 82550; 82553; 82962; 83036; 83735; 83880; 84100; 84439; 84443; 84484; 85379; 93005; 93306; 93970; 94640; 96374; 99285; A9558; J0360; J1650; J1815; J1885; J2060; J2405; J2765; J3490; J7030; J7611; J7620

== ENCOUNTER 2018-11-06 08:46 | Inpatient (IN) | payer MEDICARE, MEDICAID ==
[2018-11-06] VITALS (9 sets, daily range): BP systolic 151–202; BP diastolic 72–112
[~2018-11-06] VITALS: Ht 190.5 cm; Wt 84.8 kg
[2018-11-06] MEDS ORDERED: HYDRALAZINE 20MG/ML VIAL IV ONE (09:00)
[2018-11-06 09:57] LABS: HEMATOCRIT. 39.8 % (42.0-52.0); HEMOGLOBIN. 13.2 g/dL (14.0-18.0); MEAN CORPUSCULAR HEMOGLOBIN 29.4 pg (28.0-32.0); MEAN CORPUSCULAR VOLUME 88.9 fL (80.0-94.0); MEAN PLATELET VOLUME 9.5 fl (7.4-10.4); PLATELET 266 x1000/uL (130-400); RED BLOOD CELL COUNT 4.48 mill/uL (4.7-6.1)
[2018-11-06 10:02] LABS: CHLORIDE 95 mEq/L (98-107)
[2018-11-06 10:06] LABS: ETHANOL BLOOD < 10 mg/dL
[2018-11-06] MEDS ORDERED: CLONIDINE 0.1MG TABLET PO ONE (10:15)
[2018-11-06 10:29] LABS: PLATELET ESTIMATE NORMAL
[2018-11-06] MEDS ORDERED: ONDANSETRON HCL 4MG/2ML INJ IV PRN ×2 (12:15→19:00)
[2018-11-06] MEDS ORDERED: ACETAMINOPHEN 325MG TABLET PO PRN ×2 (12:15→19:00)
[2018-11-06] MEDS ORDERED: AMLODIPINE 10MG TABLET PO SCH (12:15)
[2018-11-06] MEDS: CLONIDINE 0.1MG TABLET PO PRN (18:15)
[2018-11-06] MEDS ORDERED: ACETAMINOPHEN 650MG SUPP PR PRN (19:00)
[2018-11-06] MEDS ORDERED: GUAIFENESIN 200MG/10ML SUGAR FREE UDC PO PRN (19:00)
[2018-11-06] MEDS ORDERED: MAGNESIUM/ALUMINUM HYDROXIDE/SIMETHICONE 30ML UDC PO PRN (19:00)
[2018-11-06] MEDS ORDERED: NA PHOS,M-B/NA PHOS,DI-BA ENEMA 118ML PR PRN (19:00)
[2018-11-06] MEDS ORDERED: IPRATROPIUM/ALBUTEROL 0.5-3(2.5)MG/3ML NEB HHN PRN (19:00)
[2018-11-06] MEDS ORDERED: HYDROCODONE/ACETAMINOPHEN 5/325MG TABLET PO PRN (19:00)
[2018-11-06] MEDS ORDERED: ACETAMINOPHEN 650MG/20.3ML UDC GT PRN (19:00)
[2018-11-06] MEDS ORDERED: CLONIDINE 0.1MG TABLET PO PRN (19:00)
[2018-11-06] MEDS ORDERED: DEXTROSE 50% WATER 50ML SYRINGE IV PRN (20:00)
[2018-11-06] MEDS: BLOOD SUGAR DIAGNOSTIC STRIP TEST SCH (20:13)
[2018-11-06] MEDS: SODIUM CHLORIDE 0.9% INJ 3ML FLUSH IVF SCH (20:36)
[2018-11-06] MEDS: INSULIN LISPRO 100 UNITS/ML SUBCUT SCH (20:36)
[2018-11-06] MEDS: ENOXAPARIN 30MG/0.3ML SYR SUBCUT SCH (20:40)
[2018-11-06] MEDS: DIPHENHYDRAMINE 50MG/ML VIAL IV PRN (20:41)
[2018-11-06] MEDS: DOXAZOSIN MESYLATE 2MG TABLET PO SCH (22:24)
[2018-11-06] MEDS: MINOXIDIL 10MG TABLET PO SCH (22:25)
[2018-11-07] VITALS (12 sets, daily range): BP systolic 137–201; BP diastolic 78–109
[2018-11-07] MEDS: CLONIDINE 0.1MG TABLET PO PRN ×3 (00:09→18:14)
[2018-11-07 00:21] LABS: CREATINE KINASE MB FRACTION 1.5 ng/mL (0.5-3.6)
[2018-11-07] MEDS ORDERED: HYDRALAZINE 20MG/ML VIAL IV SCH (01:45)
[2018-11-07] MEDS ORDERED: LABETALOL 5MG/ML SYR 20 MG/4 ML SYRINGE IV PRN (01:45)
[2018-11-07] MEDS: HYDRALAZINE HCL 50MG TABLET PO SCH ×2 (02:00→09:00)
[2018-11-07] MEDS: AMLODIPINE 10MG TABLET PO SCH ×2 (02:02→09:00)
[2018-11-07] MEDS: SODIUM CHLORIDE 0.9% INJ 3ML FLUSH IVF SCH ×3 (05:47→22:00)
[2018-11-07 07:25] LABS: BASOPHILS % 1.2 % (0.0-2.0); HEMATOCRIT. 36.2 % (42.0-52.0); HEMOGLOBIN. 11.8 g/dL (14.0-18.0); LYMPHOCYTES % 13.6 % (20.0-50.0); MEAN CORPUSCULAR HEMOGLOBIN 29.5 pg (28.0-32.0); MEAN CORPUSCULAR VOLUME 90.2 fL (80.0-94.0); MEAN PLATELET VOLUME 9.4 fl (7.4-10.4); NEUTROPHILS % 70.2 % (40.0-76.0); PLATELET 248 x1000/uL (130-400); RED BLOOD CELL COUNT 4.01 mill/uL (4.7-6.1)
[2018-11-07] MEDS: BLOOD SUGAR DIAGNOSTIC STRIP TEST SCH ×4 (07:30→20:22)
[2018-11-07] MEDS: MINOXIDIL 10MG TABLET PO SCH ×3 (09:00→16:52)
[2018-11-07] MEDS: ASPIRIN 81MG TABLET PO SCH (09:01)
[2018-11-07] MEDS: INSULIN LISPRO 100 UNITS/ML SUBCUT SCH ×4 (09:03→20:45)
[2018-11-07 10:24] LABS: CHLORIDE 100 mEq/L (98-107)
[2018-11-07 10:35] LABS: CREATINE KINASE MB FRACTION 1.5 ng/mL (0.5-3.6)
[2018-11-07 10:40] LABS: LDL CHOLESTEROL 148 mg/dL (5-100); PHOSPHORUS 4.3 mg/dL (2.5-4.9)
[2018-11-07 10:42] LABS: CREATINE KINASE 49 IU/L (39-308)
[2018-11-07 10:43] LABS: HDL CHOLESTEROL 57 mg/dL (40-59)
[2018-11-07 11:38] LABS: T4 FREE 1.11 ng/dL (0.76-1.46)
[2018-11-07 16:38] LABS: CREATINE KINASE MB FRACTION 1.8 ng/mL (0.5-3.6)
[2018-11-07] MEDS: DIPHENHYDRAMINE 50MG/ML VIAL IV PRN ×2 (16:52→20:41)
[2018-11-07] MEDS: DOCUSATE SODIUM 100MG CAPSULE PO PRN ×2 (17:59→20:40)
[2018-11-07] MEDS: ENOXAPARIN 30MG/0.3ML SYR SUBCUT SCH (20:41)
[2018-11-07] MEDS: HYDROCORTISONE 1% CREAM 30GM TOP PRN (20:41)
[2018-11-07] MEDS: DOXAZOSIN MESYLATE 2MG TABLET PO SCH (21:03)
[2018-11-08] VITALS (14 sets, daily range): BP systolic 135–180; BP diastolic 70–96
[2018-11-08 00:22] LABS: CREATINE KINASE MB FRACTION 1.7 ng/mL (0.5-3.6)
[2018-11-08] MEDS: CLONIDINE 0.1MG TABLET PO PRN ×4 (02:18→21:14)
[2018-11-08] MEDS: SODIUM CHLORIDE 0.9% INJ 3ML FLUSH IVF SCH ×3 (06:35→21:34)
[2018-11-08 07:05] LABS: BASOPHILS % 2.8 % (0.0-2.0); EOSINOPHILS % 6.2 % (0.0-5.0); HEMATOCRIT. 37.9 % (42.0-52.0); HEMOGLOBIN. 12.5 g/dL (14.0-18.0); LYMPHOCYTES % 19.5 % (20.0-50.0); MEAN CORPUSCULAR HEMOGLOBIN 29.7 pg (28.0-32.0); MEAN CORPUSCULAR VOLUME 89.7 fL (80.0-94.0); MEAN PLATELET VOLUME 10.1 fl (7.4-10.4); MONOCYTES % 10.3 % (2.0-8.0); NEUTROPHILS % 61.2 % (40.0-76.0); PLATELET 277 x1000/uL (130-400); RED BLOOD CELL COUNT 4.22 mill/uL (4.7-6.1); RED CELL DISTRIBUTION WIDTH 17.7 % (11.6-14.6)
[2018-11-08 07:14] LABS: PHOSPHORUS 5.2 mg/dL (2.5-4.9)
[2018-11-08 07:23] LABS: CREATINE KINASE MB FRACTION 1.4 ng/mL (0.5-3.6)
[2018-11-08] MEDS: BLOOD SUGAR DIAGNOSTIC STRIP TEST SCH ×4 (07:30→21:18)
[2018-11-08] MEDS: INSULIN LISPRO 100 UNITS/ML SUBCUT SCH ×4 (08:00→21:15)
[2018-11-08] MEDS ORDERED: FOLIC ACID/VITAMIN B COMP W-C TABLET PO SCH (09:00)
[2018-11-08 09:06] LABS: IMMUNOGLOBULIN A 381 mg/dL (90-386); IMMUNOGLOBULIN G 1631 mg/dL (700-1600); IMMUNOGLOBULIN M 92 mg/dL (20-172)
[2018-11-08] MEDS: ASPIRIN 81MG TABLET PO SCH (09:39)
[2018-11-08] MEDS: MINOXIDIL 10MG TABLET PO SCH ×2 (09:40→18:24)
[2018-11-08] MEDS: AMLODIPINE 10MG TABLET PO SCH (09:40)
[2018-11-08] MEDS: HYDROCORTISONE 1% CREAM 30GM TOP PRN (09:44)
[2018-11-08] MEDS ORDERED: NIFE90TA34 PO (11:22)
[2018-11-08] MEDS ORDERED: MINO10TA16 PO (11:22)
[2018-11-08] MEDS ORDERED: DOXA2TAB PO (11:22)
[2018-11-08] MEDS ORDERED: ASPI-1160 PO (11:22)
[2018-11-08] MEDS: ENOXAPARIN 30MG/0.3ML SYR SUBCUT SCH (20:32)
[2018-11-08] MEDS ORDERED: DOXAZOSIN MESYLATE 2MG TABLET PO SCH (21:00)
[2018-11-08] MEDS ORDERED: NIFEDIPINE XL 90MG TAB PO SCH (21:00)
[2018-11-08] MEDS: DIPHENHYDRAMINE 50MG/ML VIAL IV PRN (21:27)
== END 2018-11-08 21:37 | DRG 304 ==
LOC: ER 08:46 → 5EST 10:15 → EDBEDREQ 10:19 → ENRESERV 10:28
PROVIDERS: ADMIT Family Medicine; ATTEND Family Medicine
PROC: 5A1D70Z Performance of Urinary Filtration, Intermittent, Less than 6 Hours Per Day (ICD-10-PCS; principal; 2018-11-06)
PROC: 5A1D70Z Performance of Urinary Filtration, Intermittent, Less than 6 Hours Per Day (ICD-10-PCS; 2018-11-07)
DX: I16.1 Hypertensive emergency (principal); N18.6 End stage renal disease; J96.90 Respiratory failure, unspecified, unspecified whether with hypoxia or hypercapnia; N25.81 Secondary hyperparathyroidism of renal origin; H33.20 Serous retinal detachment, unspecified eye; E78.5 Hyperlipidemia, unspecified; I13.2 Hypertensive heart and chronic kidney disease with heart failure and with stage 5 chronic kidney disease, or end stage renal disease; I48.91 Unspecified atrial fibrillation; I50.9 Heart failure, unspecified; E11.22 Type 2 diabetes mellitus with diabetic chronic kidney disease; E83.39 Other disorders of phosphorus metabolism; D63.1 Anemia in chronic kidney disease; L29.9 Pruritus, unspecified; R55 Syncope and collapse; Z83.3 Family history of diabetes mellitus; Z82.49 Family history of ischemic heart disease and other diseases of the circulatory system; Z99.2 Dependence on renal dialysis; Z88.9 Allergy status to unspecified drugs, medicaments and biological substances; Z79.82 Long term (current) use of aspirin; Z79.899 Other long term (current) drug therapy; Z88.8 Allergy status to other drugs, medicaments and biological substances
CPT/HCPCS: 36415; 71045; 76700; 78582; 80048; 80061; 80320; 82550; 82553; 82784; 82962; 82977; 83036; 83605; 83735; 83880; 84100; 84145; 84439; 84443; 84484; 85379; 86334; 93005; 93306; 93880; 93970; 99291; A9558; J1200; J1650; J1815; G0480

== ENCOUNTER 2018-11-20 18:46 | Inpatient (IN) | payer MEDICARE, MEDICAID ==
[~2018-11-20] VITALS: Ht 190.5 cm; Wt 88.9 kg
[~2018-11-20 18:46] MED LIST changes: +ASPI-1160 PO; +DOXA2TAB PO; +MINO10TA16 PO; +NIFE90TA34 PO
[2018-11-20 20:41] LABS: BASOPHILS % 1.3 % (0.0-2.0); EOSINOPHILS % 3.6 % (0.0-5.0); HEMATOCRIT. 32.4 % (42.0-52.0); HEMOGLOBIN. 11.1 g/dL (14.0-18.0); LYMPHOCYTES % 13.4 % (20.0-50.0); MEAN CORPUSCULAR VOLUME 87.3 fL (80.0-94.0); MEAN PLATELET VOLUME 10.9 fl (7.4-10.4); MONOCYTES % 5.5 % (2.0-8.0); NEUTROPHILS % 76.2 % (40.0-76.0); PLATELET 291 x1000/uL (130-400); RED BLOOD CELL COUNT 3.71 mill/uL (4.7-6.1); RED CELL DISTRIBUTION WIDTH 15.1 % (11.6-14.6)
[2018-11-20 20:43] LABS: CHLORIDE 94 mEq/L (98-107)
[2018-11-20] MEDS ORDERED: ALBUTEROL (0.5%) 2.5MG/0.5ML NEB HHN ONE ×2 (21:15→21:25)
[2018-11-20] MEDS ORDERED: SODIUM POLYSTYRENE SULFONATE 15 G/60 ML BOT PO ONE (21:15)
[2018-11-20] MEDS ORDERED: HYDROCODONE/ACETAMINOPHEN 5/325MG TABLET PO PRN (22:45)
[2018-11-20] MEDS ORDERED: ONDANSETRON HCL 4MG/2ML INJ IV PRN (22:45)
[2018-11-20] MEDS ORDERED: MORPHINE SULFATE 2 MG/ML CPJ (NOT FOR IM USE) IV PRN (22:45)
[2018-11-20] MEDS ORDERED: METOPROLOL TARTRATE 25MG TABLET PO SCH (22:45)
[2018-11-21] VITALS (7 sets, daily range): BP systolic 149–193; BP diastolic 87–108
[2018-11-21] MEDS: DIPHENHYDRAMINE 50MG/ML VIAL IV PRN ×2 (00:18→21:02)
[2018-11-21] MEDS: AMLODIPINE 10MG TABLET PO SCH (01:42)
[2018-11-21] MEDS: ENOXAPARIN 30MG/0.3ML SYR SUBCUT SCH (02:52)
[2018-11-21] MEDS: HYDROCORTISONE 1% OINT 28.35GM TOP SCH ×3 (06:18→22:55)
[2018-11-21] MEDS: FOLIC ACID 1MG TABLET PO SCH (09:46)
[2018-11-21] MEDS: LISINOPRIL 10MG TABLET PO SCH (09:55)
[2018-11-21] MEDS ORDERED: DEXTROSE 50% WATER 50ML SYRINGE IV PRN ×2 (14:30)
[2018-11-21] MEDS ORDERED: IPRATROPIUM BROMIDE (0.02%) 0.5MG/2.5ML NEB HHN PRN (14:45)
[2018-11-21] MEDS: ALBUTEROL (0.083%) 2.5MG/3ML NEB HHN SCH ×2 (15:28→21:29)
[2018-11-21] MEDS: INSULIN LISPRO 100 UNITS/ML SUBCUT SCH ×2 (17:17→21:00)
[2018-11-21] MEDS: BLOOD SUGAR DIAGNOSTIC STRIP TEST SCH ×2 (17:24→21:13)
[2018-11-22] VITALS: BP 193/107
[2018-11-22] MEDS: ALBUTEROL (0.083%) 2.5MG/3ML NEB HHN SCH ×6 (00:59→20:21)
[2018-11-22 04:00] VITALS: BP 208/106
[2018-11-22] MEDS: CLONIDINE 0.1MG TABLET PO PRN ×3 (05:47→18:28)
[2018-11-22] MEDS: DIPHENHYDRAMINE 50MG/ML VIAL IV PRN ×3 (05:47→20:54)
[2018-11-22] MEDS: BLOOD SUGAR DIAGNOSTIC STRIP TEST SCH ×4 (06:27→20:58)
[2018-11-22] MEDS: INSULIN LISPRO 100 UNITS/ML SUBCUT SCH ×4 (06:27→20:58)
[2018-11-22] MEDS: HYDROCORTISONE 1% OINT 28.35GM TOP SCH ×3 (06:30→21:01)
[2018-11-22 06:45] LABS: BASOPHILS % 2.6 % (0.0-2.0); EOSINOPHILS % 4.4 % (0.0-5.0); HEMATOCRIT. 34.8 % (42.0-52.0); HEMOGLOBIN. 11.8 g/dL (14.0-18.0); LYMPHOCYTES % 14.8 % (20.0-50.0); MEAN CORPUSCULAR HEMOGLOBIN 29.5 pg (28.0-32.0); MEAN PLATELET VOLUME 10.3 fl (7.4-10.4); MONOCYTES % 7.4 % (2.0-8.0); NEUTROPHILS % 70.8 % (40.0-76.0); PLATELET 309 x1000/uL (130-400); RED BLOOD CELL COUNT 3.99 mill/uL (4.7-6.1)
[2018-11-22 08:00] VITALS: BP 202/103
[2018-11-22] MEDS: FOLIC ACID 1MG TABLET PO SCH (08:23)
[2018-11-22] MEDS: ENOXAPARIN 30MG/0.3ML SYR SUBCUT SCH (08:23)
[2018-11-22] MEDS: AMLODIPINE 10MG TABLET PO SCH (08:23)
[2018-11-22] MEDS: LISINOPRIL 10MG TABLET PO SCH (08:24)
[2018-11-22 12:00] VITALS: BP 175/99
[2018-11-22 16:00] VITALS: BP 177/109
[2018-11-22] MEDS ORDERED: MINOXIDIL 2.5MG TABLET PO NR (16:45)
[2018-11-22 20:00] VITALS: BP_SYST 152; BP_SYST 181; BP_DIAS 92; BP_DIAS 95
[2018-11-22] MEDS: LORAZEPAM 2MG/ML CPJ IV PRN (20:55)
[2018-11-22] MEDS: MINOXIDIL 2.5MG TABLET PO SCH (20:59)
[2018-11-23] VITALS (7 sets, daily range): BP systolic 137–202; BP diastolic 90–112
[2018-11-23] MEDS: ALBUTEROL (0.083%) 2.5MG/3ML NEB HHN SCH ×6 (00:21→21:57)
[2018-11-23] MEDS: DIPHENHYDRAMINE 50MG/ML VIAL IV PRN ×2 (02:30→20:37)
[2018-11-23] MEDS: LORAZEPAM 2MG/ML CPJ IV PRN (04:22)
[2018-11-23] MEDS: CLONIDINE 0.1MG TABLET PO PRN ×2 (04:56→17:22)
[2018-11-23] MEDS: HYDROCORTISONE 1% OINT 28.35GM TOP SCH ×3 (06:00→21:21)
[2018-11-23 06:25] LABS: BASOPHILS % 2.5 % (0.0-2.0); EOSINOPHILS % 4.2 % (0.0-5.0); HEMATOCRIT. 29.3 % (42.0-52.0); HEMOGLOBIN. 9.9 g/dL (14.0-18.0); LYMPHOCYTES % 18.5 % (20.0-50.0); MEAN CORPUSCULAR HEMOGLOBIN 29.2 pg (28.0-32.0); MEAN CORPUSCULAR VOLUME 86.6 fL (80.0-94.0); MEAN PLATELET VOLUME 10.4 fl (7.4-10.4); MONOCYTES % 9.6 % (2.0-8.0); NEUTROPHILS % 65.2 % (40.0-76.0); PLATELET 313 x1000/uL (130-400); RED BLOOD CELL COUNT 3.39 mill/uL (4.7-6.1); RED CELL DISTRIBUTION WIDTH 14.9 % (11.6-14.6)
[2018-11-23] MEDS: BLOOD SUGAR DIAGNOSTIC STRIP TEST SCH ×4 (06:50→21:00)
[2018-11-23] MEDS: INSULIN LISPRO 100 UNITS/ML SUBCUT SCH ×4 (08:10→21:00)
[2018-11-23] MEDS: ENOXAPARIN 30MG/0.3ML SYR SUBCUT SCH (10:00)
[2018-11-23] MEDS: FOLIC ACID 1MG TABLET PO SCH (10:01)
[2018-11-23] MEDS: LISINOPRIL 10MG TABLET PO SCH (10:01)
[2018-11-23] MEDS: MINOXIDIL 2.5MG TABLET PO SCH ×2 (10:02→20:42)
[2018-11-23] MEDS: AMLODIPINE 10MG TABLET PO SCH (10:02)
[2018-11-23] MEDS ORDERED: CALCIUM ACETATE 667MG CAPSULE PO SCH (13:10)
[2018-11-23] MEDS ORDERED: SODIUM POLYSTYRENE SULFONATE 15 G/60 ML BOT PO NR (13:30)
[2018-11-24] VITALS: BP 194/108
[2018-11-24] MEDS: CLONIDINE 0.1MG TABLET PO PRN ×3 (00:31→13:01)
[2018-11-24] MEDS: ALBUTEROL (0.083%) 2.5MG/3ML NEB HHN SCH ×2 (02:00→05:36)
[2018-11-24 04:00] VITALS: BP 204/113
[2018-11-24] MEDS: BLOOD SUGAR DIAGNOSTIC STRIP TEST SCH ×2 (06:17→12:40)
[2018-11-24] MEDS: DIPHENHYDRAMINE 50MG/ML VIAL IV PRN (06:18)
[2018-11-24] MEDS: HYDROCORTISONE 1% OINT 28.35GM TOP SCH ×2 (06:19→15:34)
[2018-11-24 07:12] LABS: BASOPHILS % 1.9 % (0.0-2.0); EOSINOPHILS % 3.4 % (0.0-5.0); HEMOGLOBIN. 10.9 g/dL (14.0-18.0); LYMPHOCYTES % 13.2 % (20.0-50.0); MEAN CORPUSCULAR HEMOGLOBIN 29.6 pg (28.0-32.0); MEAN CORPUSCULAR VOLUME 86.8 fL (80.0-94.0); MONOCYTES % 6.2 % (2.0-8.0); NEUTROPHILS % 75.3 % (40.0-76.0); PLATELET 330 x1000/uL (130-400); RED BLOOD CELL COUNT 3.69 mill/uL (4.7-6.1)
[2018-11-24 07:23] LABS: PHOSPHORUS 7.4 mg/dL (2.5-4.9)
[2018-11-24 08:00] VITALS: BP 215/119
[2018-11-24] MEDS: INSULIN LISPRO 100 UNITS/ML SUBCUT SCH ×2 (08:10→15:32)
[2018-11-24] MEDS: LORAZEPAM 2MG/ML CPJ IV PRN (08:59)
[2018-11-24] MEDS: FOLIC ACID 1MG TABLET PO SCH (08:59)
[2018-11-24] MEDS: AMLODIPINE 10MG TABLET PO SCH (09:00)
[2018-11-24] MEDS: ENOXAPARIN 30MG/0.3ML SYR SUBCUT SCH (09:00)
[2018-11-24] MEDS: LISINOPRIL 10MG TABLET PO SCH (09:00)
[2018-11-24] MEDS: MINOXIDIL 2.5MG TABLET PO SCH (09:00)
[2018-11-24] MEDS ORDERED: HEPARIN SODIUM 1,000 UNIT/1ML VIAL IV SCH (09:30)
[2018-11-24 12:01] VITALS: BP 195/102
[2018-11-24 16:16] VITALS: BP 176/108
[2018-11-24 16:19] VITALS: BP 138/68
== END 2018-11-24 16:38 | DRG 291 ==
LOC: ER 18:46 → EDBEDREQTM 21:30 → EDBEDREQ 21:30 → EDBEDREQSVC 21:30 → ENRESERV 21:36 → 7WST 23:17
PROVIDERS: ADMIT Internal Medicine Nephrology; ATTEND Internal Medicine Nephrology
PROC: 5A1D70Z Performance of Urinary Filtration, Intermittent, Less than 6 Hours Per Day (ICD-10-PCS; principal; 2018-11-22)
PROC: 5A1D70Z Performance of Urinary Filtration, Intermittent, Less than 6 Hours Per Day (ICD-10-PCS; 2018-11-23)
DX: I13.2 Hypertensive heart and chronic kidney disease with heart failure and with stage 5 chronic kidney disease, or end stage renal disease (principal); I50.33 Acute on chronic diastolic (congestive) heart failure; N18.6 End stage renal disease; J96.91 Respiratory failure, unspecified with hypoxia; N25.81 Secondary hyperparathyroidism of renal origin; Z94.84 Stem cells transplant status; E11.22 Type 2 diabetes mellitus with diabetic chronic kidney disease; E11.319 Type 2 diabetes mellitus with unspecified diabetic retinopathy without macular edema; D63.8 Anemia in other chronic diseases classified elsewhere; Z99.2 Dependence on renal dialysis; Z91.15 Patient's noncompliance with renal dialysis; Z88.8 Allergy status to other drugs, medicaments and biological substances; Z79.899 Other long term (current) drug therapy; Z79.82 Long term (current) use of aspirin; Z91.19 Patient's noncompliance with other medical treatment and regimen
CPT/HCPCS: 36415; 71045; 80048; 82962; 83735; 83880; 84100; 84484; 93005; 94640; 96372; 99285; J1200; J1644; J1650; J1815; J2060; J2405; J7611

== ENCOUNTER 2019-04-10 09:48 | Inpatient (IN) | payer MEDICARE, MEDICAID ==
[~2019-04-10] VITALS: Ht 190.5 cm; Wt 87.1 kg
[~2019-04-10 09:48] MED LIST changes: -DILT-2 PO; +DILT240C96 PO; -NIFE90TA34 PO; +NIFE90TA60 PO
[2019-04-10] MEDS ORDERED: CLONIDINE 0.1MG TABLET PO ONE (13:45)
[2019-04-10 14:14] LABS: CHLORIDE 95 mEq/L (98-107); INR 1.3; PARTIAL THROMBOPLASTIN TIME 30.3 sec (23.4-31.0)
[2019-04-10 14:28] LABS: HEMATOCRIT. 21.3 % (42.0-52.0); MEAN CORPUSCULAR HEMOGLOBIN 26.6 pg (28.0-32.0); MEAN CORPUSCULAR VOLUME 81.8 fL (80.0-94.0); MEAN PLATELET VOLUME 9.5 fl (7.4-10.4); PLATELET 406 x1000/uL (130-400)
[2019-04-10 14:31] LABS: HEMOGLOBIN. 6.9 g/dL (14.0-18.0)
[2019-04-10] MEDS ORDERED: CALCIUM GLUCONATE 1,000 MG in DEXT 5% WATER 100 ML IV ONE (15:00)
[2019-04-10] MEDS ORDERED: INSULIN REGULAR (HUMULIN R) 300UNITS/3ML IV ONE (15:00)
[2019-04-10] MEDS ORDERED: DEXTROSE 50% WATER 50ML SYRINGE IV ONE (15:00)
[2019-04-10] MEDS ORDERED: SODIUM BICARBONATE 8.4% 1 MEQ/ML 50ML SYR IV ONE (15:00)
[2019-04-10] MEDS ORDERED: ONDANSETRON HCL 4MG/2ML INJ IV PRN (15:45)
[2019-04-10] MEDS ORDERED: CLONIDINE 0.1MG TABLET PO PRN (15:45)
[2019-04-10 16:24] LABS: PLATELET ESTIMATE SLIGHTLY INCREASED
[2019-04-10 17:41] LABS: HEPATITIS B SURFACE ANTIGEN NEGATIVE
[2019-04-10 18:11] LABS: HEPATITIS A AB IGM NEGATIVE (NEGATIVE)
[2019-04-10] MEDS ORDERED: MINOXIDIL 10MG TABLET PO NR (18:13)
[2019-04-10 19:08] LABS: VITAMIN B12 SERUM > 2000.0 pg/mL (211-911)
[2019-04-10 19:14] LABS: FERRITIN 3719 ng/mL (22-322)
[2019-04-10] MEDS ORDERED: DOXAZOSIN MESYLATE 4MG TABLET PO SCH (22:00)
[2019-04-10] MEDS ORDERED: LACTULOSE 20G/30ML UDC PO SCH (22:00)
[2019-04-10] MEDS ORDERED: CALCIUM ACETATE 667MG CAPSULE PO SCH (22:00)
[2019-04-10] MEDS ORDERED: NIFEDIPINE XL 90MG TAB PO NR (22:00)
[2019-04-10] MEDS ORDERED: EPOETIN ALFA 10000UNITS/ML VIAL SUBCUT NR (22:00)
[2019-04-11] VITALS (7 sets, daily range): BP systolic 126–180; BP diastolic 68–93
[2019-04-11] MEDS ORDERED: DEXTROSE 50% WATER 50ML SYRINGE IV PRN (04:30)
[2019-04-11] MEDS: DIPHENHYDRAMINE 50MG/ML VIAL IV PRN (05:12)
[2019-04-11] MEDS: LACTULOSE 20G/30ML UDC PO SCH ×3 (05:13→21:02)
[2019-04-11] MEDS: BLOOD SUGAR DIAGNOSTIC STRIP TEST SCH ×4 (06:19→21:02)
[2019-04-11 06:56] LABS: HEMATOCRIT. 21.1 % (42.0-52.0); HEMOGLOBIN. 7.1 g/dL (14.0-18.0); MEAN CORPUSCULAR HEMOGLOBIN 27.3 pg (28.0-32.0); MEAN CORPUSCULAR VOLUME 80.9 fL (80.0-94.0); MEAN PLATELET VOLUME 9.2 fl (7.4-10.4); PLATELET 366 x1000/uL (130-400); RED BLOOD CELL COUNT 2.61 mill/uL (4.7-6.1); RED CELL DISTRIBUTION WIDTH 19.6 % (11.6-14.6)
[2019-04-11 06:59] LABS: CHLORIDE 96 mEq/L (98-107)
[2019-04-11 07:12] LABS: PHOSPHORUS 5.3 mg/dL (2.5-4.9)
[2019-04-11] MEDS: INSULIN LISPRO 100 UNITS/ML SUBCUT SCH ×4 (07:50→21:00)
[2019-04-11] MEDS: FOLIC ACID/VITAMIN B COMP W-C TABLET PO SCH (08:21)
[2019-04-11] MEDS: CALCIUM ACETATE 667MG CAPSULE PO SCH ×3 (08:21→18:16)
[2019-04-11] MEDS: MINOXIDIL 10MG TABLET PO SCH ×3 (08:23→17:00)
[2019-04-11 08:33] LABS: BG BASE EXCESS 2.2 mmol/L (-2.0-2.0); BG CARBOXYHEMOGLOBIN 0.2 % (0.5-1.5); BG DEOXYHEMOGLOBIN 11.7 % (0.0-5.0); BG FRACTION INSPIRED OXYGEN 28; BG HCO3 ACT 26.7 mmol/L (22.0-26.0); BG OXYGEN SATURATION 88.3 % (92.0-98.5); BG OXYHEMOGLOBIN 88.1 % (94.0-97.0); BG PCO2 41.5 mmHg (35.0-45.0); BG PH 7.427 (7.350-7.450); BG PO2 56.9 mmHg (75.0-100.0); BG SAMPLE SITE RIGHT RADIAL; BG VENT MODE NASAL CANNULA
[2019-04-11] MEDS ORDERED: ENOXAPARIN 30MG/0.3ML SYR SUBCUT SCH (09:00)
[2019-04-11] MEDS: TRIAMCINOLONE ACETONIDE 0.1% CREAM 15GM TOP SCH ×2 (13:00→21:02)
[2019-04-11 17:53] LABS: PLATELET ESTIMATE NORMAL
[2019-04-11 20:36] LABS: HEMATOCRIT 28.4 % (42.0-52.0); HEMOGLOBIN 9.3 g/dL (14.0-18.0)
[2019-04-11] MEDS: ATORVASTATIN CALCIUM 10MG TABLET PO SCH ×2 (21:00→21:01)
[2019-04-11] MEDS: NIFEDIPINE XL 90MG TAB PO SCH (21:01)
[2019-04-11] MEDS: DOXAZOSIN MESYLATE 4MG TABLET PO SCH (21:02)
[2019-04-12] VITALS (9 sets, daily range): BP systolic 114–161; BP diastolic 69–87
[2019-04-12] MEDS: LACTULOSE 20G/30ML UDC PO SCH ×3 (06:22→21:42)
[2019-04-12] MEDS: BLOOD SUGAR DIAGNOSTIC STRIP TEST SCH ×4 (06:22→21:32)
[2019-04-12 06:45] LABS: CHLORIDE 103 mEq/L (98-107)
[2019-04-12 06:50] LABS: HEMATOCRIT. 22.8 % (42.0-52.0); HEMOGLOBIN. 7.6 g/dL (14.0-18.0); MEAN CORPUSCULAR HEMOGLOBIN 27.8 pg (28.0-32.0); MEAN CORPUSCULAR VOLUME 83.3 fL (80.0-94.0); MEAN PLATELET VOLUME 9.5 fl (7.4-10.4); PLATELET 339 x1000/uL (130-400); RED BLOOD CELL COUNT 2.74 mill/uL (4.7-6.1); RED CELL DISTRIBUTION WIDTH 19.3 % (11.6-14.6)
[2019-04-12 06:59] LABS: PHOSPHORUS 4.3 mg/dL (2.5-4.9)
[2019-04-12] MEDS: INSULIN LISPRO 100 UNITS/ML SUBCUT SCH ×4 (07:48→21:00)
[2019-04-12] MEDS: FOLIC ACID/VITAMIN B COMP W-C TABLET PO SCH (09:00)
[2019-04-12] MEDS: TRIAMCINOLONE ACETONIDE 0.1% CREAM 15GM TOP SCH ×2 (09:01→21:42)
[2019-04-12] MEDS: MINOXIDIL 10MG TABLET PO SCH ×2 (09:01→16:57)
[2019-04-12 09:10] LABS: G6PD RBC 2.64 x10E6/uL (4.14-5.80)
[2019-04-12] MEDS: CALCIUM ACETATE 667 MG TABLET PO SCH ×3 (09:58→16:57)
[2019-04-12] MEDS: CEFEPIME 1,000 MG in DEXTROSE 5% WATER 50 ML IV SCH (14:22)
[2019-04-12] MEDS: METRONIDAZOLE 500 MG PREMIX 100 ML IV SCH ×2 (14:26→21:42)
[2019-04-12] MEDS: FERROUS SULFATE 325MG TABLET PO SCH (16:57)
[2019-04-12] MEDS: IPRATROPIUM/ALBUTEROL 0.5-3(2.5)MG/3ML NEB HHN SCH ×2 (17:12→20:40)
[2019-04-12 17:13] LABS: PLATELET ESTIMATE NORMAL
[2019-04-12] MEDS: ATORVASTATIN CALCIUM 10MG TABLET PO SCH (21:11)
[2019-04-12] MEDS: NIFEDIPINE XL 90MG TAB PO SCH (21:11)
[2019-04-12] MEDS: DOXAZOSIN MESYLATE 4MG TABLET PO SCH (21:12)
[2019-04-12] MEDS ORDERED: SORBITOL 70% SOLN 30ML PO NR (22:00)
[2019-04-12] MEDS: DIPHENHYDRAMINE 50MG/ML VIAL IV PRN (22:21)
[2019-04-13] VITALS: BP 158/72
[2019-04-13] MEDS: ACETAMINOPHEN 325MG TABLET PO PRN ×2 (00:21→22:06)
[2019-04-13] MEDS: IPRATROPIUM/ALBUTEROL 0.5-3(2.5)MG/3ML NEB HHN SCH ×6 (00:51→20:48)
[2019-04-13] MEDS: DIPHENHYDRAMINE 50MG/ML VIAL IV PRN ×3 (02:29→22:25)
[2019-04-13 04:00] VITALS: BP 148/81
[2019-04-13] MEDS ORDERED: SORBITOL 70% SOLN 30ML PO NR ×2 (06:00→10:30)
[2019-04-13] MEDS: BLOOD SUGAR DIAGNOSTIC STRIP TEST SCH ×4 (06:21→21:49)
[2019-04-13] MEDS: LACTULOSE 20G/30ML UDC PO SCH ×3 (06:24→21:47)
[2019-04-13] MEDS: METRONIDAZOLE 500 MG PREMIX 100 ML IV SCH ×3 (06:25→22:24)
[2019-04-13 07:08] LABS: HEMATOCRIT. 25.8 % (42.0-52.0); HEMOGLOBIN. 8.5 g/dL (14.0-18.0); MEAN CORPUSCULAR HEMOGLOBIN 27.3 pg (28.0-32.0); MEAN CORPUSCULAR VOLUME 83.2 fL (80.0-94.0); PLATELET 368 x1000/uL (130-400); RED CELL DISTRIBUTION WIDTH 20.4 % (11.6-14.6)
[2019-04-13 07:11] LABS: CHLORIDE 103 mEq/L (98-107)
[2019-04-13 07:18] LABS: PHOSPHORUS 4.8 mg/dL (2.5-4.9)
[2019-04-13] MEDS: INSULIN LISPRO 100 UNITS/ML SUBCUT SCH ×3 (07:50→17:50)
[2019-04-13] MEDS ORDERED: DEXT 5%/0.9% NACL 1,000 ML IV SCH (08:00)
[2019-04-13] MEDS: TRIAMCINOLONE ACETONIDE 0.1% CREAM 15GM TOP SCH ×2 (08:27→21:46)
[2019-04-13] MEDS: FERROUS SULFATE 325MG TABLET PO SCH ×2 (08:27→18:32)
[2019-04-13] MEDS: FOLIC ACID/VITAMIN B COMP W-C TABLET PO SCH (08:27)
[2019-04-13] MEDS: CALCIUM ACETATE 667 MG TABLET PO SCH ×3 (08:27→18:32)
[2019-04-13] MEDS: MINOXIDIL 10MG TABLET PO SCH ×2 (08:28→18:32)
[2019-04-13 08:50] VITALS: BP 126/73
[2019-04-13] MEDS ORDERED: NA PHOS,M-B/NA PHOS,DI-BA ENEMA 118ML PR NR (10:00)
[2019-04-13] MEDS: CEFEPIME 1,000 MG in DEXTROSE 5% WATER 50 ML IV SCH (10:46)
[2019-04-13 12:10] VITALS: BP 132/73
[2019-04-13 14:23] LABS: PLATELET ESTIMATE NORMAL
[2019-04-13] MEDS ORDERED: BACITRACIN 15GM TUBE TOP ONE (14:28)
[2019-04-13] MEDS ORDERED: NORMAL SALINE 0.9% 10 ML SYR ONE (14:29)
[2019-04-13] MEDS ORDERED: SIMETHICONE 40 MG/0.6 ML 30ML ONE (15:30)
[2019-04-13] MEDS ORDERED: MIDAZOLAM HCL 5 MG/5 ML VIAL ONE (15:30)
[2019-04-13] MEDS ORDERED: FENTANYL CITRATE/PF 50MCG/ML 2ML VIAL ONE (15:30)
[2019-04-13] MEDS ORDERED: MIDAZOLAM HCL 5 MG/5 ML VIAL IV PRN (15:59)
[2019-04-13] MEDS ORDERED: FENTANYL CITRATE/PF 50MCG/ML 2ML VIAL IV PRN (16:01)
[2019-04-13 18:15] VITALS: BP 154/84
[2019-04-13 20:05] VITALS: BP 184/98
[2019-04-13] MEDS: ATORVASTATIN CALCIUM 10MG TABLET PO SCH (21:47)
[2019-04-13] MEDS: NIFEDIPINE XL 90MG TAB PO SCH (21:48)
[2019-04-13] MEDS: DOXAZOSIN MESYLATE 4MG TABLET PO SCH (21:49)
[2019-04-13] MEDS: EPOETIN ALFA 10000UNITS/ML VIAL SUBCUT SCH (21:49)
[2019-04-14] MEDS: IPRATROPIUM/ALBUTEROL 0.5-3(2.5)MG/3ML NEB HHN SCH ×6 (00:01→21:02)
[2019-04-14 00:55] VITALS: BP 143/72
[2019-04-14] MEDS: INSULIN LISPRO 100 UNITS/ML SUBCUT SCH ×5 (01:27→22:12)
[2019-04-14] MEDS: DIPHENHYDRAMINE 50MG/ML VIAL IV PRN ×3 (02:47→20:36)
[2019-04-14 04:38] VITALS: BP 151/86
[2019-04-14] MEDS: METRONIDAZOLE 500 MG PREMIX 100 ML IV SCH ×4 (05:55→22:18)
[2019-04-14] MEDS: LACTULOSE 20G/30ML UDC PO SCH ×3 (05:55→22:20)
[2019-04-14 07:08] LABS: CHLORIDE 103 mEq/L (98-107)
[2019-04-14] MEDS: BLOOD SUGAR DIAGNOSTIC STRIP TEST SCH ×4 (07:20→22:13)
[2019-04-14 07:22] LABS: BASOPHILS % 2.1 % (0.0-2.0); EOSINOPHILS % 4.2 % (0.0-5.0); HEMATOCRIT. 26.6 % (42.0-52.0); HEMOGLOBIN. 8.6 g/dL (14.0-18.0); LYMPHOCYTES % 15.6 % (20.0-50.0); MEAN CORPUSCULAR HEMOGLOBIN 27.1 pg (28.0-32.0); MEAN PLATELET VOLUME 9.4 fl (7.4-10.4); MONOCYTES % 6.9 % (2.0-8.0); NEUTROPHILS % 71.2 % (40.0-76.0); PLATELET 364 x1000/uL (130-400); RED BLOOD CELL COUNT 3.16 mill/uL (4.7-6.1); RED CELL DISTRIBUTION WIDTH 19.9 % (11.6-14.6)
[2019-04-14] MEDS: CALCIUM ACETATE 667 MG TABLET PO SCH ×4 (07:50→17:50)
[2019-04-14 08:02] VITALS: BP 142/74
[2019-04-14] MEDS: MINOXIDIL 10MG TABLET PO SCH ×3 (09:00→17:00)
[2019-04-14] MEDS ORDERED: SODIUM POLYSTYRENE SULFONATE 15 G/60 ML BOT PO NR (09:30)
[2019-04-14 11:50] VITALS: BP 134/74
[2019-04-14] MEDS ORDERED: LIDOCAINE HCL 1% 20ML VIAL (Pyxis) INJ ONE (13:57)
[2019-04-14] MEDS ORDERED: SODIUM BICARBONATE 4% (2.4MEQ) 5ML VIAL IV ONE (13:57)
[2019-04-14] MEDS: FOLIC ACID/VITAMIN B COMP W-C TABLET PO SCH (15:08)
[2019-04-14] MEDS: FERROUS SULFATE 325MG TABLET PO SCH ×2 (15:09→17:50)
[2019-04-14] MEDS: CEFEPIME 1,000 MG in DEXTROSE 5% WATER 50 ML IV SCH (15:18)
[2019-04-14 15:34] VITALS: BP 117/64
[2019-04-14] MEDS: TRIAMCINOLONE ACETONIDE 0.1% CREAM 15GM TOP SCH ×2 (15:35→22:20)
[2019-04-14] MEDS ORDERED: VANCOMYCIN 1 G PREMIX 200 ML IV NR (16:00)
[2019-04-14] MEDS ORDERED: VANCOMYCIN 1500MG in DEXTROSE 5% WATER 250ML IV NR (17:00)
[2019-04-14] MEDS ORDERED: FAMOTIDINE 20MG TABLET PO SCH ×2 (17:30→21:00)
[2019-04-14 20:00] VITALS: BP 142/66
[2019-04-14] MEDS: ATORVASTATIN CALCIUM 10MG TABLET PO SCH (22:19)
[2019-04-14] MEDS: DOXAZOSIN MESYLATE 4MG TABLET PO SCH (22:19)
[2019-04-14] MEDS: NIFEDIPINE XL 90MG TAB PO SCH (22:19)
[2019-04-15] VITALS (7 sets, daily range): BP systolic 128–144; BP diastolic 64–79
[2019-04-15] MEDS: IPRATROPIUM/ALBUTEROL 0.5-3(2.5)MG/3ML NEB HHN SCH ×6 (04:26→21:07)
[2019-04-15] MEDS: METRONIDAZOLE 500 MG PREMIX 100 ML IV SCH ×3 (05:41→21:18)
[2019-04-15] MEDS: LACTULOSE 20G/30ML UDC PO SCH ×3 (05:43→21:18)
[2019-04-15] MEDS: DIPHENHYDRAMINE 50MG/ML VIAL IV PRN ×4 (05:48→21:43)
[2019-04-15] MEDS: BLOOD SUGAR DIAGNOSTIC STRIP TEST SCH ×4 (07:20→21:18)
[2019-04-15] MEDS: INSULIN LISPRO 100 UNITS/ML SUBCUT SCH ×4 (07:50→21:00)
[2019-04-15 07:52] LABS: CHLORIDE 103 mEq/L (98-107)
[2019-04-15 07:57] LABS: BASOPHILS % 2.6 % (0.0-2.0); EOSINOPHILS % 7.2 % (0.0-5.0); HEMOGLOBIN. 8.2 g/dL (14.0-18.0); LYMPHOCYTES % 14.3 % (20.0-50.0); MEAN CORPUSCULAR HEMOGLOBIN 27.6 pg (28.0-32.0); MEAN CORPUSCULAR VOLUME 83.7 fL (80.0-94.0); MONOCYTES % 7.5 % (2.0-8.0); NEUTROPHILS % 68.4 % (40.0-76.0); PLATELET 335 x1000/uL (130-400); RED BLOOD CELL COUNT 2.99 mill/uL (4.7-6.1); RED CELL DISTRIBUTION WIDTH 19.5 % (11.6-14.6)
[2019-04-15 07:59] LABS: PHOSPHORUS 5.4 mg/dL (2.5-4.9)
[2019-04-15] MEDS: MINOXIDIL 10MG TABLET PO SCH ×3 (09:00→18:16)
[2019-04-15] MEDS: RIFAXIMIN 550 MG TABLET PO SCH ×2 (09:38→21:17)
[2019-04-15] MEDS: FERROUS SULFATE 325MG TABLET PO SCH ×2 (09:38→18:16)
[2019-04-15] MEDS: FAMOTIDINE 20MG TABLET PO SCH (09:38)
[2019-04-15] MEDS: FOLIC ACID/VITAMIN B COMP W-C TABLET PO SCH (09:38)
[2019-04-15] MEDS: TRIAMCINOLONE ACETONIDE 0.1% CREAM 15GM TOP SCH ×2 (09:55→21:21)
[2019-04-15] MEDS: CALCIUM ACETATE 667 MG TABLET PO SCH ×3 (09:55→17:50)
[2019-04-15] MEDS: CEFEPIME 1,000 MG in DEXTROSE 5% WATER 50 ML IV SCH (11:39)
[2019-04-15] MEDS ORDERED: VANCOMYCIN 750 MG PREMIX 150 ML IV NR (17:00)
[2019-04-15 17:11] LABS: ANTI-NUCLEAR ANTIBODIES DIRECT Negative (Negative)
[2019-04-15] MEDS: ATORVASTATIN CALCIUM 10MG TABLET PO SCH (21:00)
[2019-04-15] MEDS: DOXAZOSIN MESYLATE 4MG TABLET PO SCH (21:00)
[2019-04-15] MEDS: NIFEDIPINE XL 90MG TAB PO SCH (21:00)
[2019-04-15] MEDS: EPOETIN ALFA 10000UNITS/ML VIAL SUBCUT SCH (21:18)
[2019-04-16] VITALS (14 sets, daily range): BP systolic 141–173; BP diastolic 64–90
[2019-04-16] MEDS: DIPHENHYDRAMINE 50MG/ML VIAL IV PRN ×4 (02:03→22:22)
[2019-04-16] MEDS: IPRATROPIUM/ALBUTEROL 0.5-3(2.5)MG/3ML NEB HHN SCH ×5 (04:01→20:34)
[2019-04-16] MEDS: LACTULOSE 20G/30ML UDC PO SCH ×3 (06:00→21:34)
[2019-04-16] MEDS: METRONIDAZOLE 500 MG PREMIX 100 ML IV SCH ×2 (06:12→14:07)
[2019-04-16] MEDS: BLOOD SUGAR DIAGNOSTIC STRIP TEST SCH ×4 (06:20→20:42)
[2019-04-16 07:48] LABS: CHLORIDE 102 mEq/L (98-107)
[2019-04-16] MEDS: INSULIN LISPRO 100 UNITS/ML SUBCUT SCH ×4 (07:50→20:42)
[2019-04-16 07:55] LABS: PHOSPHORUS 5.6 mg/dL (2.5-4.9)
[2019-04-16 08:10] LABS: BASOPHILS % 3.3 % (0.0-2.0); EOSINOPHILS % 9.2 % (0.0-5.0); HEMOGLOBIN. 7.9 g/dL (14.0-18.0); LYMPHOCYTES % 12.8 % (20.0-50.0); MEAN CORPUSCULAR VOLUME 84.3 fL (80.0-94.0); MEAN PLATELET VOLUME 9.3 fl (7.4-10.4); MONOCYTES % 6.3 % (2.0-8.0); NEUTROPHILS % 68.4 % (40.0-76.0); PLATELET 310 x1000/uL (130-400); RED BLOOD CELL COUNT 2.73 mill/uL (4.7-6.1); RED CELL DISTRIBUTION WIDTH 19.6 % (11.6-14.6)
[2019-04-16] MEDS: FOLIC ACID/VITAMIN B COMP W-C TABLET PO SCH (08:56)
[2019-04-16] MEDS: FAMOTIDINE 20MG TABLET PO SCH (08:56)
[2019-04-16] MEDS: FERROUS SULFATE 325MG TABLET PO SCH ×2 (08:56→19:28)
[2019-04-16] MEDS: MINOXIDIL 10MG TABLET PO SCH ×2 (08:56→17:34)
[2019-04-16] MEDS: RIFAXIMIN 550 MG TABLET PO SCH ×2 (08:56→21:33)
[2019-04-16] MEDS: CALCIUM ACETATE 667 MG TABLET PO SCH ×3 (08:56→19:28)
[2019-04-16] MEDS: TRIAMCINOLONE ACETONIDE 0.1% CREAM 15GM TOP SCH ×2 (08:57→21:37)
[2019-04-16] MEDS ORDERED: METR500T MT (09:00)
[2019-04-16] MEDS ORDERED: TC1C15 TOP (09:00)
[2019-04-16] MEDS ORDERED: FAMO20TA8 PO (09:00)
[2019-04-16] MEDS ORDERED: RIFA550T PO (09:00)
[2019-04-16] MEDS ORDERED: FERR325T23 PO (09:01)
[2019-04-16 11:12] LABS: BASOPHILS % 3.2 % (0.0-2.0); EOSINOPHILS % 8.7 % (0.0-5.0); HEMATOCRIT. 23.2 % (42.0-52.0); HEMOGLOBIN. 7.8 g/dL (14.0-18.0); MEAN CORPUSCULAR HEMOGLOBIN 28.1 pg (28.0-32.0); MEAN CORPUSCULAR VOLUME 83.9 fL (80.0-94.0); MEAN PLATELET VOLUME 9.2 fl (7.4-10.4); MONOCYTES % 8.1 % (2.0-8.0); PLATELET 283 x1000/uL (130-400); RED BLOOD CELL COUNT 2.76 mill/uL (4.7-6.1); RED CELL DISTRIBUTION WIDTH 19.4 % (11.6-14.6)
[2019-04-16] MEDS: CEFEPIME 1,000 MG in DEXTROSE 5% WATER 50 ML IV SCH (12:33)
[2019-04-16] MEDS: NIFEDIPINE XL 90MG TAB PO SCH (18:46)
[2019-04-16] MEDS: ATORVASTATIN CALCIUM 10MG TABLET PO SCH ×2 (21:00→21:33)
[2019-04-16] MEDS ORDERED: MINOXIDIL 10MG TABLET PO NR (21:24)
[2019-04-16] MEDS: METRONIDAZOLE 500MG TABLET PO SCH (21:33)
[2019-04-16] MEDS: DOXAZOSIN MESYLATE 4MG TABLET PO SCH (21:33)
[2019-04-16] MEDS ORDERED: HYDRALAZINE HCL 50MG TABLET PO SCH (22:00)
[2019-04-17] VITALS: BP 141/78
[2019-04-17] MEDS: IPRATROPIUM/ALBUTEROL 0.5-3(2.5)MG/3ML NEB HHN SCH ×2 (01:11→05:29)
[2019-04-17 04:00] VITALS: BP 121/63
[2019-04-17] MEDS: LACTULOSE 20G/30ML UDC PO SCH (06:00)
[2019-04-17] MEDS: METRONIDAZOLE 500MG TABLET PO SCH (06:10)
[2019-04-17] MEDS: BLOOD SUGAR DIAGNOSTIC STRIP TEST SCH (07:08)
[2019-04-17 08:00] VITALS: BP 120/67
[2019-04-17 13:06] LABS: ACTIN (SMOOTH MUSCLE) ANTIBODY 10 Units (0-19); MITOCHONDRIAL M2 AB <20.0 Units (0.0-20.0)
== END 2019-04-17 09:18 | disposition home or self-care (01) | DRG 314 ==
LOC: ER 09:48 → 6WST 15:13 → EDBEDREQSVC 23:07 → EDBEDREQTM 23:07 → ENRESERV 04-11 02:43
PROVIDERS: ADMIT Internal Medicine Geriatric Medicine; ATTEND Internal Medicine Geriatric Medicine
PROC: 30233N1 Transfusion of Nonautologous Red Blood Cells into Peripheral Vein, Percutaneous Approach (ICD-10-PCS; 2019-04-10)
PROC: 5A1D70Z Performance of Urinary Filtration, Intermittent, Less than 6 Hours Per Day (ICD-10-PCS; principal; 2019-04-11)
PROC: 5A1D70Z Performance of Urinary Filtration, Intermittent, Less than 6 Hours Per Day (ICD-10-PCS; 2019-04-12)
PROC: 5A1D70Z Performance of Urinary Filtration, Intermittent, Less than 6 Hours Per Day (ICD-10-PCS; 2019-04-13)
PROC: 0DB68ZX Excision of Stomach, Via Natural or Artificial Opening Endoscopic, Diagnostic (ICD-10-PCS; 2019-04-13)
PROC: 0DJD8ZZ Inspection of Lower Intestinal Tract, Via Natural or Artificial Opening Endoscopic (ICD-10-PCS; 2019-04-13)
PROC: 0JPT3XZ Removal of Tunneled Vascular Access Device from Trunk Subcutaneous Tissue and Fascia, Percutaneous Approach (ICD-10-PCS; 2019-04-14)
DX: T80.211A Bloodstream infection due to central venous catheter, initial encounter (principal); A41.89 Other specified sepsis; N18.6 End stage renal disease; K22.6 Gastro-esophageal laceration-hemorrhage syndrome; K29.71 Gastritis, unspecified, with bleeding; D62 Acute posthemorrhagic anemia; I13.2 Hypertensive heart and chronic kidney disease with heart failure and with stage 5 chronic kidney disease, or end stage renal disease; N25.81 Secondary hyperparathyroidism of renal origin; K76.6 Portal hypertension; E22.2 Syndrome of inappropriate secretion of antidiuretic hormone; E10.22 Type 1 diabetes mellitus with diabetic chronic kidney disease; E78.5 Hyperlipidemia, unspecified; E83.39 Other disorders of phosphorus metabolism; E87.5 Hyperkalemia; I50.9 Heart failure, unspecified; L29.9 Pruritus, unspecified; I86.8 Varicose veins of other specified sites; E80.6 Other disorders of bilirubin metabolism; K76.81 Hepatopulmonary syndrome; K44.9 Diaphragmatic hernia without obstruction or gangrene; K22.2 Esophageal obstruction; K70.40 Alcoholic hepatic failure without coma; K74.60 Unspecified cirrhosis of liver; K64.8 Other hemorrhoids; D63.1 Anemia in chronic kidney disease; L20.9 Atopic dermatitis, unspecified; Y83.8 Other surgical procedures as the cause of abnormal reaction of the patient, or of later complication, without mention of misadventure at the time of the procedure; Z99.2 Dependence on renal dialysis; Z79.4 Long term (current) use of insulin; Z79.899 Other long term (current) drug therapy; Z88.8 Allergy status to other drugs, medicaments and biological substances; Y92.89 Other specified places as the place of occurrence of the external cause
CPT/HCPCS: 36415; 36589; 36600; 71045; 74181; 76700; 80048; 80053; 80076; 82140; 82248; 82375; 82378; 82390; 82607; 82728; 82746; 82805; 82955; 82962; 83010; 83516; 83540; 83550; 83735; 84100; 85014; 85018; 85025; 85041; 85044; 86038; 86301; 86705; 86709; 86803; 86850; 86900; 86920; 87070; 87077; 87186; 87340; 88305; 88313; 93005; 93306; 93970; 94640; 96365; 99152; 99153; 99291; J0610; J0692; J0885; J1200; J1815; J2250; J2405; J3010; J3370; J3490; J7060; P9016; P9021; G0500

== ENCOUNTER 2019-04-27 09:25 | Inpatient (IN) | payer MEDICARE, MEDICAID ==
[~2019-04-27] VITALS: Ht 185.4 cm; Wt 92.2 kg
[2019-04-27] VITALS (7 sets, daily range): BP systolic 165–179; BP diastolic 67–95
[~2019-04-27 09:25] MED LIST changes: +FAMO20TA8 PO; +FERR325T23 PO; +METR500T MT; +RIFA550T PO; +TC1C15 TOP
[2019-04-27 10:00] LABS: BASOPHILS % 1.2 % (0.0-2.0); EOSINOPHILS % 3.6 % (0.0-5.0); LYMPHOCYTES % 21.6 % (20.0-50.0); MEAN CORPUSCULAR HEMOGLOBIN 28.9 pg (28.0-32.0); MEAN CORPUSCULAR VOLUME 87.1 fL (80.0-94.0); MEAN PLATELET VOLUME 9.1 fl (7.4-10.4); MONOCYTES % 3.9 % (2.0-8.0); NEUTROPHILS % 69.7 % (40.0-76.0); PLATELET 271 x1000/uL (130-400); RED BLOOD CELL COUNT 3.79 mill/uL (4.7-6.1); RED CELL DISTRIBUTION WIDTH 19.6 % (11.6-14.6)
[2019-04-27 10:19] LABS: CHLORIDE 97 mEq/L (98-107)
[2019-04-27 10:36] LABS: BG BASE EXCESS 0.6 mmol/L (-2.0-2.0); BG BILEVEL POS AIRWAY PRESSURE 15/5; BG CARBOXYHEMOGLOBIN 1.5 % (0.5-1.5); BG DEOXYHEMOGLOBIN 0.4 % (0.0-5.0); BG FRACTION INSPIRED OXYGEN 100; BG HCO3 ACT 26.1 mmol/L (22.0-26.0); BG METHEMOGLOBIN 0.4 % (0.0-1.5); BG OXYGEN SATURATION 99.6 % (92.0-98.5); BG OXYHEMOGLOBIN 97.7 % (94.0-97.0); BG PCO2 45.5 mmHg (35.0-45.0); BG PH 7.376 (7.350-7.450); BG PO2 283.7 mmHg (75.0-100.0); BG SAMPLE SITE RIGHT RADIAL; BG TOTAL HEMOGLOBIN 11.4 g/dL (12.0-18.0); BG VENT MODE MASK - BIPAP; BG VENT RATE 14 set
[2019-04-27] MEDS ORDERED: PIPERACILLIN/TAZ 3.375G PREMIX 50 ML IV ONE (11:15)
[2019-04-27] MEDS ORDERED: LEVOFLOXACIN 750MG PREMIX 150 ML IV ONE (11:15)
[2019-04-27] MEDS ORDERED: CALCIUM ACETATE 667MG CAPSULE PO SCH (18:00)
[2019-04-27] MEDS ORDERED: CLONIDINE 0.1MG TABLET PO PRN (18:15)
[2019-04-27] MEDS: DIPHENHYDRAMINE 25MG CAPSULE PO PRN (18:47)
[2019-04-27] MEDS: FERROUS SULFATE 325MG TABLET PO SCH (18:47)
[2019-04-27 19:24] LABS: BASOPHILS % 0.3 % (0.0-2.0); EOSINOPHILS % 3.1 % (0.0-5.0); HEMOGLOBIN. 8.9 g/dL (14.0-18.0); LYMPHOCYTES % 22.5 % (20.0-50.0); MEAN CORPUSCULAR HEMOGLOBIN 28.3 pg (28.0-32.0); MEAN CORPUSCULAR VOLUME 85.5 fL (80.0-94.0); MEAN PLATELET VOLUME 8.7 fl (7.4-10.4); MONOCYTES % 3.3 % (2.0-8.0); NEUTROPHILS % 70.8 % (40.0-76.0); PLATELET 250 x1000/uL (130-400); RED BLOOD CELL COUNT 3.16 mill/uL (4.7-6.1)
[2019-04-27] MEDS: IPRATROPIUM/ALBUTEROL 0.5-3(2.5)MG/3ML NEB HHN SCH (21:27)
[2019-04-27] MEDS: ALBUTEROL (0.083%) 2.5MG/3ML NEB HHN SCH (21:27)
[2019-04-27] MEDS: LACTULOSE 20G/30ML UDC PO SCH (22:05)
[2019-04-27] MEDS: CALCIUM ACETATE 667 MG TABLET PO SCH (22:06)
[2019-04-27] MEDS: RIFAXIMIN 550 MG TABLET PO SCH (22:06)
[2019-04-27] MEDS: ENOXAPARIN 30MG/0.3ML SYR SUBCUT SCH (22:07)
[2019-04-27] MEDS: NIFEDIPINE XL 90MG TAB PO SCH (22:08)
[2019-04-27] MEDS: ATORVASTATIN CALCIUM 10MG TABLET PO SCH (22:08)
[2019-04-27] MEDS: DOXAZOSIN MESYLATE 2MG TABLET PO SCH (22:08)
[2019-04-27] MEDS: TRIAMCINOLONE ACETONIDE 0.1% CREAM 15GM TOP SCH (22:10)
[2019-04-28] VITALS (11 sets, daily range): BP systolic 97–159; BP diastolic 50–89
[2019-04-28] MEDS: IPRATROPIUM/ALBUTEROL 0.5-3(2.5)MG/3ML NEB HHN SCH ×5 (01:36→20:40)
[2019-04-28] MEDS: ALBUTEROL (0.083%) 2.5MG/3ML NEB HHN SCH ×3 (01:36→16:56)
[2019-04-28] MEDS: DIPHENHYDRAMINE 25MG CAPSULE PO PRN (03:19)
[2019-04-28] MEDS: LACTULOSE 20G/30ML UDC PO SCH ×3 (06:00→21:45)
[2019-04-28 07:50] LABS: HEMATOCRIT. 26.4 % (42.0-52.0); MEAN CORPUSCULAR HEMOGLOBIN 29.1 pg (28.0-32.0); MEAN CORPUSCULAR VOLUME 85.1 fL (80.0-94.0); PLATELET 232 x1000/uL (130-400); RED CELL DISTRIBUTION WIDTH 18.8 % (11.6-14.6)
[2019-04-28 08:10] LABS: BG BASE EXCESS 2.6 mmol/L (-2.0-2.0); BG CARBOXYHEMOGLOBIN 0.5 % (0.5-1.5); BG DEOXYHEMOGLOBIN 5.3 % (0.0-5.0); BG FRACTION INSPIRED OXYGEN 38; BG HCO3 ACT 27.2 mmol/L (22.0-26.0); BG METHEMOGLOBIN 0.1 % (0.0-1.5); BG OXYGEN SATURATION 94.7 % (92.0-98.5); BG OXYHEMOGLOBIN 94.1 % (94.0-97.0); BG PCO2 41.8 mmHg (35.0-45.0); BG PH 7.431 (7.350-7.450); BG PO2 75.4 mmHg (75.0-100.0); BG SAMPLE SITE RIGHT RADIAL; BG TOTAL HEMOGLOBIN 9.7 g/dL (12.0-18.0); BG VENT MODE NASAL CANNULA
[2019-04-28 08:10] LABS: CHLORIDE 99 mEq/L (98-107)
[2019-04-28 08:18] LABS: PHOSPHORUS 7.1 mg/dL (2.5-4.9)
[2019-04-28 08:44] LABS: PLATELET ESTIMATE NORMAL
[2019-04-28] MEDS: FERROUS SULFATE 325MG TABLET PO SCH ×2 (08:59→17:05)
[2019-04-28] MEDS: ASPIRIN 81MG TABLET PO SCH (08:59)
[2019-04-28] MEDS: FOLIC ACID/VITAMIN B COMP W-C TABLET PO SCH (08:59)
[2019-04-28] MEDS: RIFAXIMIN 550 MG TABLET PO SCH ×2 (08:59→21:43)
[2019-04-28] MEDS: CALCIUM ACETATE 667 MG TABLET PO SCH ×3 (09:00→17:05)
[2019-04-28] MEDS: MINOXIDIL 10MG TABLET PO SCH ×2 (09:00→17:00)
[2019-04-28] MEDS: TRIAMCINOLONE ACETONIDE 0.1% CREAM 15GM TOP SCH ×2 (09:00→21:44)
[2019-04-28] MEDS: FAMOTIDINE 20MG TABLET PO SCH (09:00)
[2019-04-28] MEDS: ACETAMINOPHEN 325MG TABLET PO PRN (10:26)
[2019-04-28 12:09] LABS: BG BASE EXCESS 2.3 mmol/L (-2.0-2.0); BG DEOXYHEMOGLOBIN 15.3 % (0.0-5.0); BG FRACTION INSPIRED OXYGEN 21; BG METHEMOGLOBIN 0.3 % (0.0-1.5); BG OXYGEN SATURATION 84.5 % (92.0-98.5); BG OXYHEMOGLOBIN 83.4 % (94.0-97.0); BG PCO2 42.4 mmHg (35.0-45.0); BG PH 7.422 (7.350-7.450); BG PO2 50.1 mmHg (75.0-100.0); BG SAMPLE SITE RIGHT RADIAL; BG TOTAL HEMOGLOBIN 11.2 g/dL (12.0-18.0); BG VENT MODE ROOM AIR
[2019-04-28] MEDS: DOXAZOSIN MESYLATE 2MG TABLET PO SCH (21:00)
[2019-04-28] MEDS: NIFEDIPINE XL 90MG TAB PO SCH (21:00)
[2019-04-28] MEDS: ENOXAPARIN 30MG/0.3ML SYR SUBCUT SCH (21:43)
[2019-04-28] MEDS: ATORVASTATIN CALCIUM 10MG TABLET PO SCH (21:43)
[2019-04-29] VITALS (7 sets, daily range): BP systolic 143–153; BP diastolic 70–97
[2019-04-29] MEDS: IPRATROPIUM/ALBUTEROL 0.5-3(2.5)MG/3ML NEB HHN SCH ×7 (00:23→22:19)
[2019-04-29] MEDS: LACTULOSE 20G/30ML UDC PO SCH ×3 (06:00→21:53)
[2019-04-29 06:14] LABS: HEMATOCRIT. 26.3 % (42.0-52.0); HEMOGLOBIN. 8.9 g/dL (14.0-18.0); MEAN CORPUSCULAR HEMOGLOBIN 28.9 pg (28.0-32.0); MEAN CORPUSCULAR VOLUME 85.8 fL (80.0-94.0); MEAN PLATELET VOLUME 9.6 fl (7.4-10.4); PLATELET 216 x1000/uL (130-400); RED BLOOD CELL COUNT 3.07 mill/uL (4.7-6.1); RED CELL DISTRIBUTION WIDTH 18.9 % (11.6-14.6)
[2019-04-29 07:53] LABS: PHOSPHORUS 6.4 mg/dL (2.5-4.9)
[2019-04-29] MEDS ORDERED: RIFA550T PO (08:11)
[2019-04-29] MEDS ORDERED: LACT10SO30 MT (08:11)
[2019-04-29] MEDS ORDERED: TC1C15 TOP (08:11)
[2019-04-29] MEDS ORDERED: LACT10SO7 PO (08:11)
[2019-04-29] MEDS ORDERED: B25 PO (08:11)
[2019-04-29] MEDS ORDERED: NEPVIT PO (08:11)
[2019-04-29] MEDS: MINOXIDIL 10MG TABLET PO SCH ×2 (09:00→16:26)
[2019-04-29] MEDS: FOLIC ACID/VITAMIN B COMP W-C TABLET PO SCH (09:13)
[2019-04-29] MEDS: FERROUS SULFATE 325MG TABLET PO SCH ×2 (09:13→17:40)
[2019-04-29] MEDS: RIFAXIMIN 550 MG TABLET PO SCH ×2 (09:13→21:51)
[2019-04-29] MEDS: ASPIRIN 81MG TABLET PO SCH (09:13)
[2019-04-29] MEDS: FAMOTIDINE 20MG TABLET PO SCH (09:14)
[2019-04-29] MEDS: CALCIUM ACETATE 667 MG TABLET PO SCH ×3 (09:15→17:41)
[2019-04-29] MEDS: TRIAMCINOLONE ACETONIDE 0.1% CREAM 15GM TOP SCH ×2 (09:18→21:53)
[2019-04-29 12:19] LABS: PLATELET ESTIMATE NORMAL
[2019-04-29] MEDS: ACETAMINOPHEN 325MG TABLET PO PRN (16:27)
[2019-04-29] MEDS: DIPHENHYDRAMINE 25MG CAPSULE PO PRN (21:51)
[2019-04-29] MEDS: ENOXAPARIN 30MG/0.3ML SYR SUBCUT SCH (21:51)
[2019-04-29] MEDS: ATORVASTATIN CALCIUM 10MG TABLET PO SCH (21:52)
[2019-04-29] MEDS: NIFEDIPINE XL 90MG TAB PO SCH (21:52)
[2019-04-29] MEDS: DOXAZOSIN MESYLATE 2MG TABLET PO SCH (21:53)
[2019-04-30 00:08] VITALS: BP 145/77
[2019-04-30 02:31] VITALS: BP 144/79
[2019-04-30] MEDS: IPRATROPIUM/ALBUTEROL 0.5-3(2.5)MG/3ML NEB HHN SCH (05:05)
[2019-04-30] MEDS: LACTULOSE 20G/30ML UDC PO SCH ×2 (05:17→14:00)
[2019-04-30 05:58] VITALS: BP 153/82
[2019-04-30 08:00] VITALS: BP 133/77
[2019-04-30] MEDS: RIFAXIMIN 550 MG TABLET PO SCH (08:26)
[2019-04-30] MEDS: CALCIUM ACETATE 667 MG TABLET PO SCH ×2 (08:26→12:22)
[2019-04-30] MEDS: FOLIC ACID/VITAMIN B COMP W-C TABLET PO SCH (08:26)
[2019-04-30] MEDS: FAMOTIDINE 20MG TABLET PO SCH (08:27)
[2019-04-30] MEDS: TRIAMCINOLONE ACETONIDE 0.1% CREAM 15GM TOP SCH (08:27)
[2019-04-30] MEDS: MINOXIDIL 10MG TABLET PO SCH (08:27)
[2019-04-30] MEDS: ASPIRIN 81MG TABLET PO SCH (08:27)
[2019-04-30] MEDS: FERROUS SULFATE 325MG TABLET PO SCH (08:32)
[2019-04-30] MEDS: ALBUTEROL (0.083%) 2.5MG/3ML NEB HHN SCH ×2 (08:56→11:47)
== END 2019-04-30 14:35 | disposition home or self-care (01) | DRG 291 ==
LOC: ER 09:25 → 5EST 12:03 → ENRESERV 12:58
PROVIDERS: ADMIT Internal Medicine Geriatric Medicine; ATTEND Internal Medicine Geriatric Medicine
PROC: 5A1D70Z Performance of Urinary Filtration, Intermittent, Less than 6 Hours Per Day (ICD-10-PCS; principal; 2019-04-27)
PROC: 5A1D70Z Performance of Urinary Filtration, Intermittent, Less than 6 Hours Per Day (ICD-10-PCS; 2019-04-28)
PROC: 5A1D70Z Performance of Urinary Filtration, Intermittent, Less than 6 Hours Per Day (ICD-10-PCS; 2019-04-29)
DX: I13.2 Hypertensive heart and chronic kidney disease with heart failure and with stage 5 chronic kidney disease, or end stage renal disease (principal); J96.21 Acute and chronic respiratory failure with hypoxia; N18.6 End stage renal disease; E44.0 Moderate protein-calorie malnutrition; Z16.21 Resistance to vancomycin; I42.0 Dilated cardiomyopathy; L20.9 Atopic dermatitis, unspecified; K74.60 Unspecified cirrhosis of liver; I27.29 Other secondary pulmonary hypertension; E11.69 Type 2 diabetes mellitus with other specified complication; B95.2 Enterococcus as the cause of diseases classified elsewhere; I50.9 Heart failure, unspecified; J44.9 Chronic obstructive pulmonary disease, unspecified; E78.5 Hyperlipidemia, unspecified; E11.22 Type 2 diabetes mellitus with diabetic chronic kidney disease; F10.21 Alcohol dependence, in remission; D64.9 Anemia, unspecified; Z91.19 Patient's noncompliance with other medical treatment and regimen; Z86.14 Personal history of Methicillin resistant Staphylococcus aureus infection; Z79.899 Other long term (current) drug therapy; Z99.2 Dependence on renal dialysis; Z87.19 Personal history of other diseases of the digestive system; Z83.3 Family history of diabetes mellitus; Z88.8 Allergy status to other drugs, medicaments and biological substances; Z79.4 Long term (current) use of insulin; Z99.81 Dependence on supplemental oxygen; Z68.26 Body mass index [BMI] 26.0-26.9, adult
CPT/HCPCS: 36415; 36600; 71045; 80048; 80053; 82375; 82805; 82962; 83735; 83880; 84100; 84484; 85025; 87804; 93005; 94640; 94660; 99285; J1650; J1956; J2543; Q0163

== ENCOUNTER 2019-07-09 11:03 | Inpatient (IN) | payer MEDICARE, MEDICAID ==
[~2019-07-09] VITALS: Ht 190.5 cm; Wt 88.7 kg
[~2019-07-09 11:03] MED LIST changes: +B25 PO; +LACT10SO30 MT; +LACT10SO7 PO; -METR500T MT
[2019-07-09 12:27] LABS: BASOPHILS % 1.2 % (0.0-2.0); EOSINOPHILS % 12.5 % (0.0-5.0); HEMATOCRIT. 29.7 % (42.0-52.0); LYMPHOCYTES % 13.3 % (20.0-50.0); MEAN CORPUSCULAR HEMOGLOBIN 29.3 pg (28.0-32.0); MEAN PLATELET VOLUME 9.6 fl (7.4-10.4); MONOCYTES % 8.1 % (2.0-8.0); NEUTROPHILS % 64.9 % (40.0-76.0); PLATELET 257 x1000/uL (130-400); RED BLOOD CELL COUNT 3.41 mill/uL (4.7-6.1); RED CELL DISTRIBUTION WIDTH 16.9 % (11.6-14.6)
[2019-07-09 12:28] LABS: CHLORIDE 95 mEq/L (98-107)
[2019-07-09 12:30] LABS: PROTHROMBIN TIME 10.8 sec (9.6-11.0)
[2019-07-09 12:34] LABS: PHOSPHORUS 3.2 mg/dL (2.5-4.9)
[2019-07-09 12:49] LABS: BG BASE EXCESS 8.2 mmol/L (-2.0-2.0); BG CARBOXYHEMOGLOBIN 0.7 % (0.5-1.5); BG DEOXYHEMOGLOBIN 7.7 % (0.0-5.0); BG FRACTION INSPIRED OXYGEN 36; BG HCO3 ACT 33.6 mmol/L (22.0-26.0); BG METHEMOGLOBIN 0.2 % (0.0-1.5); BG OXYGEN SATURATION 92.2 % (92.0-98.5); BG OXYHEMOGLOBIN 91.4 % (94.0-97.0); BG PCO2 50.9 mmHg (35.0-45.0); BG PH 7.437 (7.350-7.450); BG PO2 63.4 mmHg (75.0-100.0); BG SAMPLE SITE RIGHT RADIAL; BG TOTAL HEMOGLOBIN 10.7 g/dL (12.0-18.0); BG VENT MODE NASAL CANNULA
[2019-07-09] MEDS ORDERED: NITROGLYCERIN 0.4MG TABLET SL SL PRN (15:00)
[2019-07-09] MEDS ORDERED: ENOXAPARIN 40MG/0.4ML SYR SUBCUT SCH (15:00)
[2019-07-09] MEDS ORDERED: CLONIDINE 0.1MG TABLET PO PRN (15:00)
[2019-07-09] MEDS ORDERED: ONDANSETRON HCL 4MG/2ML INJ IV PRN (15:00)
[2019-07-09] MEDS ORDERED: DOCUSATE SODIUM 100MG CAPSULE PO PRN (15:00)
[2019-07-09] MEDS ORDERED: IPRATROPIUM/ALBUTEROL 0.5-3(2.5)MG/3ML NEB ORI PRN (15:00)
[2019-07-09] MEDS ORDERED: MAGNESIUM/ALUMINUM HYDROXIDE/SIMETHICONE 30ML UDC PO PRN (15:00)
[2019-07-09] MEDS ORDERED: GUAIFENESIN 200MG/10ML SUGAR FREE UDC PO PRN (15:00)
[2019-07-09] MEDS ORDERED: ACETAMINOPHEN 325MG TABLET PO PRN ×2 (15:00)
[2019-07-09] MEDS ORDERED: SEVELAMER CARBONATE 800 MG TABLET PO NR (18:15)
[2019-07-09] MEDS ORDERED: DILTIAZEM HCL 60MG TABLET PO NR (18:15)
[2019-07-09] MEDS ORDERED: ZOLPIDEM TARTRATE 5MG TABLET PO PRN (21:00)
[2019-07-09] MEDS: ASCORBIC ACID 500 MG TABLET PO SCH (21:58)
[2019-07-09] MEDS: FAMOTIDINE 20MG TABLET PO SCH (21:58)
[2019-07-09] MEDS: MINOXIDIL 2.5MG TABLET PO SCH (21:59)
[2019-07-09 23:12] LABS: CREATINE KINASE 85 IU/L (39-308); CREATINE KINASE MB FRACTION < 1.0 ng/mL (0.5-3.6)
[2019-07-09 23:29] VITALS: BP 131/74
[2019-07-10] MEDS: DILTIAZEM HCL 60MG TABLET PO SCH ×4 (02:25→23:08)
[2019-07-10] MEDS: LACTULOSE 20G/30ML UDC PO SCH ×3 (03:25→17:10)
[2019-07-10 05:43] VITALS: BP 128/61
[2019-07-10 06:24] LABS: CREATINE KINASE 75 IU/L (39-308)
[2019-07-10 06:25] LABS: CREATINE KINASE MB FRACTION < 1.0 ng/mL (0.5-3.6)
[2019-07-10] MEDS: ENOXAPARIN 30MG/0.3ML SYR SUBCUT SCH (09:04)
[2019-07-10] MEDS: ZINC SULFATE 220 MG ( 50 ) CAPSULE PO SCH (09:05)
[2019-07-10] MEDS: MINOXIDIL 2.5MG TABLET PO SCH ×2 (09:05→21:25)
[2019-07-10] MEDS: FAMOTIDINE 20MG TABLET PO SCH (09:06)
[2019-07-10] MEDS: ASCORBIC ACID 500 MG TABLET PO SCH ×2 (09:06→21:25)
[2019-07-10] MEDS: ASPIRIN 81MG EC TABLET PO SCH (09:06)
[2019-07-10] MEDS: SEVELAMER CARBONATE 800 MG TABLET PO SCH ×3 (09:06→17:11)
[2019-07-10 11:33] LABS: HEMATOCRIT 33.1 % (42.0-52.0); MEAN CORPUSCULAR VOLUME 87.3 fL (80.0-94.0); PLATELET 302 x1000/uL (130-400); RED CELL DISTRIBUTION WIDTH 17.2 % (11.6-14.6)
[2019-07-10 12:00] VITALS: BP 136/76
[2019-07-10] MEDS ORDERED: CALCIUM ACETATE 667MG CAPSULE PO SCH (12:50)
[2019-07-10 16:00] VITALS: BP 150/78
[2019-07-10 20:04] VITALS: BP 137/72
[2019-07-10] MEDS ORDERED: EPOETIN ALFA 10000UNITS/ML VIAL SUBCUT SCH (21:00)
[2019-07-10] MEDS: DIPHENHYDRAMINE 50MG/ML VIAL IV PRN (23:08)
[2019-07-11] VITALS: BP_SYST 104; BP_SYST 148; BP_DIAS 77; BP_DIAS 83
[2019-07-11] MEDS: LACTULOSE 20G/30ML UDC PO SCH ×3 (03:15→17:23)
[2019-07-11 03:36] VITALS: BP 158/87
[2019-07-11] MEDS: DIPHENHYDRAMINE 50MG/ML VIAL IV PRN ×2 (03:42→21:22)
[2019-07-11] MEDS: DILTIAZEM HCL 60MG TABLET PO SCH ×6 (06:18→23:31)
[2019-07-11 06:20] LABS: BASOPHILS % 1.9 % (0.0-2.0); EOSINOPHILS % 14.2 % (0.0-5.0); HEMATOCRIT. 33.6 % (42.0-52.0); HEMOGLOBIN. 11.3 g/dL (14.0-18.0); LYMPHOCYTES % 14.1 % (20.0-50.0); MEAN CORPUSCULAR HEMOGLOBIN 29.3 pg (28.0-32.0); MEAN CORPUSCULAR VOLUME 87.2 fL (80.0-94.0); MEAN PLATELET VOLUME 9.1 fl (7.4-10.4); MONOCYTES % 10.3 % (2.0-8.0); NEUTROPHILS % 59.5 % (40.0-76.0); PLATELET 297 x1000/uL (130-400); RED BLOOD CELL COUNT 3.85 mill/uL (4.7-6.1); RED CELL DISTRIBUTION WIDTH 17.1 % (11.6-14.6)
[2019-07-11 08:00] VITALS: BP 178/103
[2019-07-11] MEDS: ASCORBIC ACID 500 MG TABLET PO SCH ×2 (08:20→21:21)
[2019-07-11] MEDS: ZINC SULFATE 220 MG ( 50 ) CAPSULE PO SCH (08:20)
[2019-07-11] MEDS: SEVELAMER CARBONATE 800 MG TABLET PO SCH ×3 (08:20→17:24)
[2019-07-11] MEDS: MINOXIDIL 2.5MG TABLET PO SCH ×3 (08:20→21:29)
[2019-07-11] MEDS: ENOXAPARIN 30MG/0.3ML SYR SUBCUT SCH (08:20)
[2019-07-11] MEDS: ASPIRIN 81MG EC TABLET PO SCH (08:21)
[2019-07-11] MEDS: FAMOTIDINE 20MG TABLET PO SCH (08:21)
[2019-07-11 12:00] VITALS: BP 161/97
[2019-07-11] MEDS: LOSARTAN POTASSIUM 100 MG TABLET PO SCH (12:30)
[2019-07-11 16:00] VITALS: BP 142/82
[2019-07-11 20:19] VITALS: BP 128/67
[2019-07-12] VITALS: BP 148/77
[2019-07-12] MEDS: DIPHENHYDRAMINE 50MG/ML VIAL IV PRN (01:08)
[2019-07-12] MEDS: LACTULOSE 20G/30ML UDC PO SCH ×2 (01:10→11:31)
[2019-07-12 04:00] VITALS: BP 154/83
[2019-07-12] MEDS: DILTIAZEM HCL 60MG TABLET PO SCH ×2 (05:18→12:00)
[2019-07-12 06:49] LABS: BASOPHILS % 1.8 % (0.0-2.0); EOSINOPHILS % 10.4 % (0.0-5.0); HEMATOCRIT. 31.5 % (42.0-52.0); HEMOGLOBIN. 10.6 g/dL (14.0-18.0); MEAN CORPUSCULAR VOLUME 86.5 fL (80.0-94.0); MEAN PLATELET VOLUME 9.4 fl (7.4-10.4); MONOCYTES % 11.3 % (2.0-8.0); NEUTROPHILS % 63.5 % (40.0-76.0); PLATELET 283 x1000/uL (130-400); RED BLOOD CELL COUNT 3.64 mill/uL (4.7-6.1); RED CELL DISTRIBUTION WIDTH 17.1 % (11.6-14.6)
[2019-07-12 07:12] LABS: PHOSPHORUS 4.7 mg/dL (2.5-4.9)
[2019-07-12 08:00] VITALS: BP 160/93
[2019-07-12] MEDS: MINOXIDIL 2.5MG TABLET PO SCH (08:31)
[2019-07-12] MEDS: SEVELAMER CARBONATE 800 MG TABLET PO SCH (08:32)
[2019-07-12] MEDS: LOSARTAN POTASSIUM 100 MG TABLET PO SCH (08:32)
[2019-07-12] MEDS: ENOXAPARIN 30MG/0.3ML SYR SUBCUT SCH (08:32)
[2019-07-12] MEDS: FAMOTIDINE 20MG TABLET PO SCH (08:32)
[2019-07-12] MEDS: ASPIRIN 81MG EC TABLET PO SCH (08:32)
[2019-07-12] MEDS: ASCORBIC ACID 500 MG TABLET PO SCH (08:32)
[2019-07-12] MEDS: ZINC SULFATE 220 MG ( 50 ) CAPSULE PO SCH (08:32)
[2019-07-12 10:19] VITALS: BP 154/90
[2019-07-12 11:11] VITALS: BP 155/90
== END 2019-07-12 12:45 | disposition home or self-care (01) | DRG 291 ==
LOC: ER 11:03 → 6WST 14:08 → EDBEDREQTM 14:19 → EDBEDREQ 14:19 → SUPCPDRO 14:46 → ENRESERV 20:41
PROVIDERS: ADMIT Internal Medicine; ATTEND Internal Medicine
PROC: 5A1D70Z Performance of Urinary Filtration, Intermittent, Less than 6 Hours Per Day (ICD-10-PCS; principal; 2019-07-09)
PROC: 5A1D70Z Performance of Urinary Filtration, Intermittent, Less than 6 Hours Per Day (ICD-10-PCS; 2019-07-10)
PROC: 5A1D70Z Performance of Urinary Filtration, Intermittent, Less than 6 Hours Per Day (ICD-10-PCS; 2019-07-11)
PROC: 5A1D70Z Performance of Urinary Filtration, Intermittent, Less than 6 Hours Per Day (ICD-10-PCS; 2019-07-12)
DX: I13.2 Hypertensive heart and chronic kidney disease with heart failure and with stage 5 chronic kidney disease, or end stage renal disease (principal); J96.00 Acute respiratory failure, unspecified whether with hypoxia or hypercapnia; N18.6 End stage renal disease; E44.0 Moderate protein-calorie malnutrition; I50.40 Unspecified combined systolic (congestive) and diastolic (congestive) heart failure; E87.1 Hypo-osmolality and hyponatremia; N25.81 Secondary hyperparathyroidism of renal origin; E78.00 Pure hypercholesterolemia, unspecified; D63.8 Anemia in other chronic diseases classified elsewhere; E87.5 Hyperkalemia; K74.60 Unspecified cirrhosis of liver; E11.22 Type 2 diabetes mellitus with diabetic chronic kidney disease; E11.65 Type 2 diabetes mellitus with hyperglycemia; E78.5 Hyperlipidemia, unspecified; Z99.2 Dependence on renal dialysis; Z68.24 Body mass index [BMI] 24.0-24.9, adult
CPT/HCPCS: 36415; 36600; 71045; 80048; 80053; 82375; 82550; 82553; 82805; 83036; 83735; 84100; 84484; 85025; 85027; 93005; 93306; 93970; J1200; J1650

== ENCOUNTER 2020-02-10 10:43 | Inpatient (IN) | payer MEDICARE, MEDICAID ==
[~2020-02-10] VITALS: Ht 188 cm; Wt 84.0 kg
[2020-02-10] MEDS ORDERED: ACETAMINOPHEN 325MG TABLET PO STA (11:00)
[2020-02-10] MEDS ORDERED: PIPERACILLIN/TAZ 3.375G PREMIX 50 ML IV ONE (11:30)
[2020-02-10] MEDS ORDERED: SODIUM CHLORIDE 0.9% 1000ML BAG (SEPSIS BOLUS) IV ONE (11:30)
[2020-02-10] MEDS ORDERED: VANCOMYCIN 1 G PREMIX 200 ML IV ONE (11:30)
[2020-02-10 11:56] LABS: BASOPHILS % 1.4 % (0.0-2.0); EOSINOPHILS % 0.7 % (0.0-5.0); HEMATOCRIT. 34.6 % (42.0-52.0); HEMOGLOBIN. 11.6 g/dL (14.0-18.0); LYMPHOCYTES % 13.4 % (20.0-50.0); MEAN CORPUSCULAR HEMOGLOBIN 28.1 pg (28.0-32.0); MEAN PLATELET VOLUME 8.9 fl (7.4-10.4); MONOCYTES % 11.4 % (2.0-8.0); NEUTROPHILS % 73.1 % (40.0-76.0); PLATELET 198 x1000/uL (130-400); RED BLOOD CELL COUNT 4.12 mill/uL (4.7-6.1); RED CELL DISTRIBUTION WIDTH 14.6 % (11.6-14.6)
[2020-02-10 11:58] LABS: CHLORIDE 96 mEq/L (98-107)
[2020-02-10 12:05] LABS: D-DIMER 1.38 mg/L FEU (<0.50); PROTHROMBIN TIME 10.9 sec (9.6-11.0)
[2020-02-10 12:06] LABS: CREATINE KINASE 78 IU/L (39-308)
[2020-02-10 12:58] LABS: BG BASE EXCESS -3.4 mmol/L (-2.0-2.0); BG CARBOXYHEMOGLOBIN 0.3 % (0.5-1.5); BG DEOXYHEMOGLOBIN 3.6 % (0.0-5.0); BG FRACTION INSPIRED OXYGEN 28; BG HCO3 ACT 21.3 mmol/L (22.0-26.0); BG METHEMOGLOBIN 0.3 % (0.0-1.5); BG OXYGEN SATURATION 96.4 % (92.0-98.5); BG OXYHEMOGLOBIN 95.8 % (94.0-97.0); BG PCO2 37.3 mmHg (35.0-45.0); BG PH 7.375 (7.350-7.450); BG PO2 86.3 mmHg (75.0-100.0); BG SAMPLE SITE RIGHT RADIAL; BG TOTAL HEMOGLOBIN 10.6 g/dL (12.0-18.0); BG VENT MODE NASAL CANNULA
[2020-02-10] MEDS ORDERED: SODIUM POLYSTYRENE SULFONATE 15 G/60 ML BOT PO ONE (13:45)
[2020-02-10] MEDS ORDERED: PIPERACILLIN/TAZ 3.375G PREMIX 50 ML IV SCH (16:15)
[2020-02-10] MEDS ORDERED: DOCUSATE SODIUM 100MG CAPSULE PO PRN (16:15)
[2020-02-10] MEDS ORDERED: GUAIFENESIN 200MG/10ML SUGAR FREE UDC PO PRN (16:15)
[2020-02-10] MEDS ORDERED: HYDROCODONE/ACETAMINOPHEN 5/325MG TABLET PO PRN (16:15)
[2020-02-10] MEDS ORDERED: MAGNESIUM/ALUMINUM HYDROXIDE/SIMETHICONE 30ML UDC PO PRN (16:15)
[2020-02-10] MEDS ORDERED: ONDANSETRON HCL 4MG/2ML INJ IV PRN (16:15)
[2020-02-10] MEDS ORDERED: CLONIDINE 0.1MG TABLET PO PRN (16:15)
[2020-02-10] MEDS: MINOXIDIL 10MG TABLET PO SCH (17:00)
[2020-02-10] MEDS ORDERED: VANCOMYCIN 750 MG PREMIX 150 ML IV NR (17:00)
[2020-02-10] MEDS: CALCIUM ACETATE 667MG CAPSULE PO SCH (17:28)
[2020-02-10 19:59] LABS: HEMATOCRIT. 32.4 % (42.0-52.0); HEMOGLOBIN. 10.8 g/dL (14.0-18.0); LYMPHOCYTES % 14.4 % (20.0-50.0); MEAN CORPUSCULAR VOLUME 83.9 fL (80.0-94.0); MEAN PLATELET VOLUME 8.9 fl (7.4-10.4); MONOCYTES % 13.6 % (2.0-8.0); PLATELET 159 x1000/uL (130-400); RED BLOOD CELL COUNT 3.86 mill/uL (4.7-6.1); RED CELL DISTRIBUTION WIDTH 14.4 % (11.6-14.6)
[2020-02-10] MEDS: PIPERACILLIN/TAZOBACTAM 3.375 G in DEXT 5% WATER 100 ML IV SCH (21:41)
[2020-02-10] MEDS: DILTIAZEM HCL 120MG CAPSULE CD 24HR PO SCH (21:41)
[2020-02-10] MEDS: DOXAZOSIN MESYLATE 4MG TABLET PO SCH (21:41)
[2020-02-10] MEDS: RIFAXIMIN 550 MG TABLET PO SCH (21:53)
[2020-02-10] MEDS: LACTULOSE 20G/30ML UDC PO SCH (22:00)
[2020-02-10 23:00] VITALS: BP_SYST 157; BP_SYST 166; BP_DIAS 89; BP_DIAS 91
[2020-02-10] MEDS: DIPHENHYDRAMINE 50MG/ML VIAL IV PRN (23:19)
[2020-02-11 04:00] VITALS: BP 135/71
[2020-02-11] MEDS: LACTULOSE 20G/30ML UDC PO SCH ×3 (05:21→21:54)
[2020-02-11] MEDS: BLOOD SUGAR DIAGNOSTIC STRIP TEST SCH ×4 (06:34→21:54)
[2020-02-11] MEDS: INSULIN LISPRO 100 UNITS/ML SUBCUT SCH ×4 (06:35→22:19)
[2020-02-11 08:00] VITALS: BP 137/60
[2020-02-11] MEDS: ACETAMINOPHEN 325MG TABLET PO PRN (08:31)
[2020-02-11 09:04] LABS: BG BASE EXCESS 4.6 mmol/L (-2.0-2.0); BG CARBOXYHEMOGLOBIN 1.2 % (0.5-1.5); BG HCO3 ACT 29.5 mmol/L (22.0-26.0); BG METHEMOGLOBIN 0.3 % (0.0-1.5); BG OXYGEN SATURATION 94.9 % (92.0-98.5); BG OXYHEMOGLOBIN 93.5 % (94.0-97.0); BG PCO2 45.1 mmHg (35.0-45.0); BG PH 7.433 (7.350-7.450); BG PO2 73.3 mmHg (75.0-100.0); BG SAMPLE SITE RIGHT BRACHIAL; BG TOTAL HEMOGLOBIN 11.5 g/dL (12.0-18.0); BG VENT MODE MASK - NRB
[2020-02-11 09:38] LABS: BASOPHILS % 0.8 % (0.0-2.0); HEMATOCRIT. 33.2 % (42.0-52.0); LYMPHOCYTES % 7.7 % (20.0-50.0); MEAN CORPUSCULAR HEMOGLOBIN 27.8 pg (28.0-32.0); MEAN CORPUSCULAR VOLUME 83.5 fL (80.0-94.0); MONOCYTES % 5.6 % (2.0-8.0); NEUTROPHILS % 85.9 % (40.0-76.0); PLATELET 164 x1000/uL (130-400); RED BLOOD CELL COUNT 3.98 mill/uL (4.7-6.1); RED CELL DISTRIBUTION WIDTH 14.4 % (11.6-14.6)
[2020-02-11 09:55] LABS: CHLORIDE 99 mEq/L (98-107)
[2020-02-11 10:05] LABS: PHOSPHORUS 3.1 mg/dL (2.5-4.9)
[2020-02-11] MEDS: RIFAXIMIN 550 MG TABLET PO SCH ×2 (10:13→21:53)
[2020-02-11] MEDS: DILTIAZEM HCL 120MG CAPSULE CD 24HR PO SCH ×2 (10:14→21:53)
[2020-02-11] MEDS: CALCIUM ACETATE 667MG CAPSULE PO SCH ×3 (10:15→17:27)
[2020-02-11 12:00] VITALS: BP 112/57
[2020-02-11] MEDS: PIPERACILLIN/TAZOBACTAM 3.375 G in DEXT 5% WATER 100 ML IV SCH ×2 (14:18→21:54)
[2020-02-11] MEDS: MINOXIDIL 10MG TABLET PO SCH ×2 (14:18→17:27)
[2020-02-11 15:31] VITALS: BP 108/46
[2020-02-11] MEDS: DEXAMETHASONE 10 MG/ML VIAL IV SCH (18:39)
[2020-02-11 20:00] VITALS: BP 158/54
[2020-02-11] MEDS: DOXAZOSIN MESYLATE 4MG TABLET PO SCH (21:53)
[2020-02-11] MEDS: DIPHENHYDRAMINE 50MG/ML VIAL IV PRN (21:54)
[2020-02-12] VITALS: BP 111/50
[2020-02-12] MEDS: DIPHENHYDRAMINE 50MG/ML VIAL IV PRN ×3 (02:11→21:41)
[2020-02-12 04:00] VITALS: BP 125/64
[2020-02-12] MEDS: LACTULOSE 20G/30ML UDC PO SCH ×3 (05:55→21:41)
[2020-02-12] MEDS: BLOOD SUGAR DIAGNOSTIC STRIP TEST SCH ×4 (05:55→20:58)
[2020-02-12] MEDS: ACETAMINOPHEN 325MG TABLET PO PRN ×2 (05:55→17:09)
[2020-02-12] MEDS: INSULIN LISPRO 100 UNITS/ML SUBCUT SCH ×4 (06:16→21:41)
[2020-02-12 07:08] LABS: CHLORIDE 97 mEq/L (98-107)
[2020-02-12 08:15] VITALS: BP 131/62
[2020-02-12] MEDS: DILTIAZEM HCL 120MG CAPSULE CD 24HR PO SCH ×2 (10:37→21:00)
[2020-02-12] MEDS: CALCIUM ACETATE 667MG CAPSULE PO SCH ×3 (10:37→17:08)
[2020-02-12] MEDS: MINOXIDIL 10MG TABLET PO SCH ×2 (10:38→17:12)
[2020-02-12] MEDS: RIFAXIMIN 550 MG TABLET PO SCH ×2 (10:38→21:41)
[2020-02-12] MEDS: PIPERACILLIN/TAZOBACTAM 3.375 G in DEXT 5% WATER 100 ML IV SCH (10:38)
[2020-02-12] MEDS: CHOLECALCIFEROL (D3) 1000 UNIT TABLET PO SCH (10:38)
[2020-02-12 12:22] VITALS: BP 146/63
[2020-02-12 16:18] VITALS: BP 144/51
[2020-02-12] MEDS: DEXAMETHASONE 10 MG/ML VIAL IV SCH (17:08)
[2020-02-12] MEDS ORDERED: VANCOMYCIN 750 MG PREMIX 150 ML IV SCH (18:00)
[2020-02-12] MEDS: PIPERACILLIN/TAZOBACTAM 2.25 G in DEXTROSE 5% WATER 50 ML IV SCH (18:40)
[2020-02-12 20:00] VITALS: BP 116/60
[2020-02-12] MEDS: DOXAZOSIN MESYLATE 4MG TABLET PO SCH (21:00)
[2020-02-13 00:30] VITALS: BP 140/73
[2020-02-13] MEDS: ACETAMINOPHEN 325MG TABLET PO PRN (00:57)
[2020-02-13] MEDS: PIPERACILLIN/TAZOBACTAM 2.25 G in DEXTROSE 5% WATER 50 ML IV SCH ×4 (02:44→23:16)
[2020-02-13 04:00] VITALS: BP 145/47
[2020-02-13] MEDS: LACTULOSE 20G/30ML UDC PO SCH ×4 (05:14→21:51)
[2020-02-13] MEDS: DIPHENHYDRAMINE 50MG/ML VIAL IV PRN ×4 (05:14→23:16)
[2020-02-13] MEDS: BLOOD SUGAR DIAGNOSTIC STRIP TEST SCH ×4 (06:13→20:23)
[2020-02-13 06:20] LABS: HEMATOCRIT. 23.6 % (42.0-52.0); HEMOGLOBIN. 7.7 g/dL (14.0-18.0); MEAN CORPUSCULAR HEMOGLOBIN 28.3 pg (28.0-32.0); MEAN CORPUSCULAR VOLUME 87.2 fL (80.0-94.0)
[2020-02-13] MEDS: INSULIN LISPRO 100 UNITS/ML SUBCUT SCH ×4 (06:25→21:50)
[2020-02-13] MEDS: CALCIUM ACETATE 667MG CAPSULE PO SCH ×3 (06:27→18:47)
[2020-02-13 08:00] VITALS: BP 140/68
[2020-02-13] MEDS: RIFAXIMIN 550 MG TABLET PO SCH ×2 (09:00→21:42)
[2020-02-13] MEDS: MINOXIDIL 10MG TABLET PO SCH ×2 (09:00→18:52)
[2020-02-13] MEDS: CHOLECALCIFEROL (D3) 1000 UNIT TABLET PO SCH (10:13)
[2020-02-13] MEDS: DILTIAZEM HCL 120MG CAPSULE CD 24HR PO SCH ×2 (10:13→21:42)
[2020-02-13 10:34] LABS: PLATELET 136 x1000/uL (130-400)
[2020-02-13 10:42] LABS: PLATELET ESTIMATE NORMAL
[2020-02-13 12:00] VITALS: BP 117/59
[2020-02-13 16:00] VITALS: BP 116/68
[2020-02-13 17:10] LABS: HEMATOCRIT 26.3 % (42.0-52.0); HEMOGLOBIN 8.9 g/dL (14.0-18.0); MEAN CORPUSCULAR VOLUME 82.5 fL (80.0-94.0); PLATELET 170 x1000/uL (130-400); RED BLOOD CELL COUNT 3.19 mill/uL (4.7-6.1); RED CELL DISTRIBUTION WIDTH 14.5 % (11.6-14.6)
[2020-02-13] MEDS: DEXAMETHASONE 10 MG/ML VIAL IV SCH (18:47)
[2020-02-13 20:00] VITALS: BP 123/85
[2020-02-13] MEDS: DOXAZOSIN MESYLATE 4MG TABLET PO SCH (21:42)
[2020-02-14] VITALS: BP 118/77
[2020-02-14 04:00] VITALS: BP 101/55
[2020-02-14] MEDS: LACTULOSE 20G/30ML UDC PO SCH ×3 (06:00→22:11)
[2020-02-14] MEDS: BLOOD SUGAR DIAGNOSTIC STRIP TEST SCH ×4 (06:19→21:55)
[2020-02-14] MEDS: INSULIN LISPRO 100 UNITS/ML SUBCUT SCH ×4 (06:45→22:18)
[2020-02-14 08:00] VITALS: BP 116/63
[2020-02-14] MEDS: DILTIAZEM HCL 120MG CAPSULE CD 24HR PO SCH ×2 (09:00→22:11)
[2020-02-14] MEDS: CALCIUM ACETATE 667MG CAPSULE PO SCH ×3 (09:13→17:27)
[2020-02-14] MEDS: CHOLECALCIFEROL (D3) 1000 UNIT TABLET PO SCH (09:13)
[2020-02-14] MEDS: MINOXIDIL 10MG TABLET PO SCH (09:14)
[2020-02-14] MEDS: RIFAXIMIN 550 MG TABLET PO SCH ×2 (09:15→22:11)
[2020-02-14] MEDS: DIPHENHYDRAMINE 50MG/ML VIAL IV PRN ×2 (09:27→20:27)
[2020-02-14] MEDS: PIPERACILLIN/TAZOBACTAM 2.25 G in DEXTROSE 5% WATER 50 ML IV SCH ×2 (09:27→17:38)
[2020-02-14 12:00] VITALS: BP 118/59
[2020-02-14 13:57] LABS: BG BASE EXCESS -2.4 mmol/L (-2.0-2.0); BG CARBOXYHEMOGLOBIN 0.3 % (0.5-1.5); BG DEOXYHEMOGLOBIN 30.5 % (0.0-5.0); BG FRACTION INSPIRED OXYGEN 21; BG HCO3 ACT 21.7 mmol/L (22.0-26.0); BG METHEMOGLOBIN 0.3 % (0.0-1.5); BG OXYGEN SATURATION 69.3 % (92.0-98.5); BG OXYHEMOGLOBIN 68.9 % (94.0-97.0); BG PCO2 34.9 mmHg (35.0-45.0); BG PH 7.412 (7.350-7.450); BG PO2 36.2 mmHg (75.0-100.0); BG SAMPLE SITE RIGHT RADIAL; BG TOTAL HEMOGLOBIN 10.5 g/dL (12.0-18.0); BG VENT MODE ROOM AIR
[2020-02-14 16:00] VITALS: BP 119/76
[2020-02-14] MEDS: MINOXIDIL 2.5MG TABLET PO SCH (17:00)
[2020-02-14] MEDS: DEXAMETHASONE 10 MG/ML VIAL IV SCH (17:38)
[2020-02-14 20:00] VITALS: BP 107/61
[2020-02-14] MEDS: DOXAZOSIN MESYLATE 4MG TABLET PO SCH (21:00)
[2020-02-15] VITALS: BP 100/88
[2020-02-15] MEDS: PIPERACILLIN/TAZOBACTAM 2.25 G in DEXTROSE 5% WATER 50 ML IV SCH ×3 (00:01→18:43)
[2020-02-15] MEDS: DIPHENHYDRAMINE 50MG/ML VIAL IV PRN ×5 (00:28→20:05)
[2020-02-15 04:00] VITALS: BP 116/67
[2020-02-15] MEDS: BLOOD SUGAR DIAGNOSTIC STRIP TEST SCH ×4 (06:09→21:00)
[2020-02-15] MEDS: LACTULOSE 20G/30ML UDC PO SCH ×3 (06:13→21:49)
[2020-02-15] MEDS: INSULIN LISPRO 100 UNITS/ML SUBCUT SCH ×4 (06:22→21:00)
[2020-02-15 08:00] VITALS: BP 121/65
[2020-02-15] MEDS: CALCIUM ACETATE 667MG CAPSULE PO SCH ×3 (08:03→18:43)
[2020-02-15] MEDS: MINOXIDIL 2.5MG TABLET PO SCH ×2 (09:00→17:00)
[2020-02-15 09:42] LABS: HEMOGLOBIN. 9.4 g/dL (14.0-18.0); MEAN CORPUSCULAR HEMOGLOBIN 27.9 pg (28.0-32.0); MEAN CORPUSCULAR VOLUME 83.2 fL (80.0-94.0); MEAN PLATELET VOLUME 9.2 fl (7.4-10.4); PLATELET 177 x1000/uL (130-400); RED BLOOD CELL COUNT 3.37 mill/uL (4.7-6.1); RED CELL DISTRIBUTION WIDTH 14.3 % (11.6-14.6)
[2020-02-15] MEDS: RIFAXIMIN 550 MG TABLET PO SCH ×2 (10:00→21:48)
[2020-02-15] MEDS: CHOLECALCIFEROL (D3) 1000 UNIT TABLET PO SCH (10:00)
[2020-02-15] MEDS: DILTIAZEM HCL 120MG CAPSULE CD 24HR PO SCH ×2 (10:01→21:48)
[2020-02-15 10:06] LABS: PHOSPHORUS 5.2 mg/dL (2.5-4.9)
[2020-02-15 12:00] VITALS: BP 125/68
[2020-02-15 13:43] LABS: PLATELET ESTIMATE NORMAL
[2020-02-15 16:00] VITALS: BP 120/62
[2020-02-15] MEDS: VANCOMYCIN 750 MG PREMIX 150 ML IV SCH ×2 (18:00→20:05)
[2020-02-15] MEDS: DEXAMETHASONE 10 MG/ML VIAL IV SCH (18:43)
[2020-02-15] MEDS: DOXAZOSIN MESYLATE 4MG TABLET PO SCH (21:49)
[2020-02-15] MEDS: EPOETIN ALFA-EPBX 4,000 UNIT/ML VIAL SUBCUT SCH (21:50)
[2020-02-16] VITALS: BP 121/50
[2020-02-16] MEDS: DIPHENHYDRAMINE 50MG/ML VIAL IV PRN ×2 (01:19→22:16)
[2020-02-16 04:00] VITALS: BP 114/65
[2020-02-16] MEDS: LACTULOSE 20G/30ML UDC PO SCH ×4 (06:01→21:21)
[2020-02-16] MEDS: BLOOD SUGAR DIAGNOSTIC STRIP TEST SCH ×4 (06:01→21:15)
[2020-02-16] MEDS: INSULIN LISPRO 100 UNITS/ML SUBCUT SCH ×6 (06:28→21:12)
[2020-02-16 07:14] LABS: HEMATOCRIT. 31.6 % (42.0-52.0); HEMOGLOBIN. 10.6 g/dL (14.0-18.0); MEAN CORPUSCULAR HEMOGLOBIN 27.8 pg (28.0-32.0); MEAN CORPUSCULAR VOLUME 83.1 fL (80.0-94.0); MEAN PLATELET VOLUME 9.4 fl (7.4-10.4); PLATELET 196 x1000/uL (130-400); RED BLOOD CELL COUNT 3.81 mill/uL (4.7-6.1); RED CELL DISTRIBUTION WIDTH 14.3 % (11.6-14.6)
[2020-02-16 08:00] VITALS: BP 126/68
[2020-02-16] MEDS: CHOLECALCIFEROL (D3) 1000 UNIT TABLET PO SCH (10:28)
[2020-02-16] MEDS: CALCIUM ACETATE 667MG CAPSULE PO SCH ×3 (10:28→17:36)
[2020-02-16] MEDS: MINOXIDIL 2.5MG TABLET PO SCH ×2 (10:28→17:35)
[2020-02-16] MEDS: DILTIAZEM HCL 120MG CAPSULE CD 24HR PO SCH ×3 (10:28→21:11)
[2020-02-16 16:00] VITALS: BP 128/69
[2020-02-16] MEDS: DEXAMETHASONE 10 MG/ML VIAL IV SCH (18:08)
[2020-02-16 18:33] LABS: PLATELET ESTIMATE NORMAL
[2020-02-16 20:00] VITALS: BP 132/65
[2020-02-16] MEDS: DOXAZOSIN MESYLATE 4MG TABLET PO SCH ×2 (21:00→21:14)
[2020-02-17] VITALS: BP 118/67
[2020-02-17 04:00] VITALS: BP 126/68
[2020-02-17] MEDS: BLOOD SUGAR DIAGNOSTIC STRIP TEST SCH ×4 (06:24→21:00)
[2020-02-17] MEDS ORDERED: INSULIN LISPRO 100 UNITS/ML SUBCUT NR (06:40)
[2020-02-17] MEDS: CALCIUM ACETATE 667MG CAPSULE PO SCH ×3 (06:52→22:01)
[2020-02-17] MEDS: LACTULOSE 20G/30ML UDC PO SCH ×3 (06:52→22:01)
[2020-02-17] MEDS: INSULIN LISPRO 100 UNITS/ML SUBCUT SCH ×4 (06:54→22:17)
[2020-02-17 07:14] LABS: HEMOGLOBIN. 9.9 g/dL (14.0-18.0); MEAN CORPUSCULAR HEMOGLOBIN 27.3 pg (28.0-32.0); MEAN CORPUSCULAR VOLUME 82.8 fL (80.0-94.0); PLATELET 238 x1000/uL (130-400); RED BLOOD CELL COUNT 3.62 mill/uL (4.7-6.1); RED CELL DISTRIBUTION WIDTH 14.1 % (11.6-14.6)
[2020-02-17 07:32] LABS: PHOSPHORUS 4.8 mg/dL (2.5-4.9)
[2020-02-17 08:00] VITALS: BP 130/68
[2020-02-17 09:07] LABS: BG CARBOXYHEMOGLOBIN 0.1 % (0.5-1.5); BG DEOXYHEMOGLOBIN 4.9 % (0.0-5.0); BG METHEMOGLOBIN 0.3 % (0.0-1.5); BG OXYGEN SATURATION 95.1 % (92.0-98.5); BG OXYHEMOGLOBIN 94.7 % (94.0-97.0); BG PH 7.377 (7.350-7.450); BG PO2 79.1 mmHg (75.0-100.0); BG SAMPLE SITE RIGHT RADIAL; BG TOTAL HEMOGLOBIN 10.2 g/dL (12.0-18.0); BG VENT MODE MASK - SIMPLE
[2020-02-17] MEDS: CHOLECALCIFEROL (D3) 1000 UNIT TABLET PO SCH (09:08)
[2020-02-17] MEDS: MINOXIDIL 2.5MG TABLET PO SCH ×2 (09:08→22:01)
[2020-02-17] MEDS: DILTIAZEM HCL 120MG CAPSULE CD 24HR PO SCH ×2 (09:09→22:02)
[2020-02-17] MEDS ORDERED: INSULIN GLARGINE UD 100 UNITS/ML SYR SUBCUT SCH (10:00)
[2020-02-17 12:00] VITALS: BP 137/76
[2020-02-17 13:44] LABS: PLATELET ESTIMATE NORMAL
[2020-02-17 16:00] VITALS: BP 138/71
[2020-02-17 20:00] VITALS: BP 138/71
[2020-02-17] MEDS: EPOETIN ALFA-EPBX 4,000 UNIT/ML VIAL SUBCUT SCH (22:00)
[2020-02-17] MEDS: DOXAZOSIN MESYLATE 4MG TABLET PO SCH (22:02)
[2020-02-17] MEDS: DEXAMETHASONE 10 MG/ML VIAL IV SCH (22:03)
[2020-02-17] MEDS: DIPHENHYDRAMINE 50MG/ML VIAL IV PRN (22:14)
[2020-02-18] VITALS: BP 139/73
[2020-02-18 04:00] VITALS: BP 125/56
[2020-02-18] MEDS: LACTULOSE 20G/30ML UDC PO SCH ×3 (06:33→22:00)
[2020-02-18] MEDS: BLOOD SUGAR DIAGNOSTIC STRIP TEST SCH ×3 (06:33→21:05)
[2020-02-18] MEDS: INSULIN LISPRO 100 UNITS/ML SUBCUT SCH ×4 (07:40→21:09)
[2020-02-18 08:00] VITALS: BP 125/57
[2020-02-18] MEDS: CALCIUM ACETATE 667MG CAPSULE PO SCH ×3 (09:25→19:10)
[2020-02-18] MEDS: CHOLECALCIFEROL (D3) 1000 UNIT TABLET PO SCH ×2 (09:25→09:34)
[2020-02-18] MEDS: MINOXIDIL 2.5MG TABLET PO SCH ×2 (09:26→17:00)
[2020-02-18] MEDS: DILTIAZEM HCL 120MG CAPSULE CD 24HR PO SCH ×2 (09:31→21:06)
[2020-02-18] MEDS ORDERED: INSULIN GLARGINE UD 100 UNITS/ML SYR SUBCUT SCH (10:00)
[2020-02-18] MEDS: DIPHENHYDRAMINE 50MG/ML VIAL IV PRN ×2 (11:16→21:09)
[2020-02-18 16:00] VITALS: BP 145/72
[2020-02-18 16:26] LABS: HEMATOCRIT. 27.7 % (42.0-52.0); HEMOGLOBIN. 9.3 g/dL (14.0-18.0); MEAN CORPUSCULAR HEMOGLOBIN 27.4 pg (28.0-32.0); MEAN CORPUSCULAR VOLUME 81.6 fL (80.0-94.0); MEAN PLATELET VOLUME 8.8 fl (7.4-10.4); PLATELET 287 x1000/uL (130-400); RED BLOOD CELL COUNT 3.39 mill/uL (4.7-6.1); RED CELL DISTRIBUTION WIDTH 14.2 % (11.6-14.6)
[2020-02-18 16:56] LABS: PLATELET ESTIMATE NORMAL
[2020-02-18 17:01] LABS: PHOSPHORUS 4.5 mg/dL (2.5-4.9)
[2020-02-18] MEDS: DEXAMETHASONE 10 MG/ML VIAL IV SCH (19:10)
[2020-02-18 20:00] VITALS: BP 133/59
[2020-02-18] MEDS: DOXAZOSIN MESYLATE 4MG TABLET PO SCH (21:08)
[2020-02-19] VITALS: BP 128/80
[2020-02-19] MEDS: DIPHENHYDRAMINE 50MG/ML VIAL IV PRN ×3 (03:03→19:11)
[2020-02-19 04:00] VITALS: BP 136/80
[2020-02-19] MEDS: LACTULOSE 20G/30ML UDC PO SCH ×3 (06:07→22:16)
[2020-02-19 06:27] LABS: HEMATOCRIT. 28.9 % (42.0-52.0); HEMOGLOBIN. 9.5 g/dL (14.0-18.0); MEAN CORPUSCULAR HEMOGLOBIN 26.9 pg (28.0-32.0); MEAN CORPUSCULAR VOLUME 82.3 fL (80.0-94.0); MEAN PLATELET VOLUME 9.3 fl (7.4-10.4); PLATELET 308 x1000/uL (130-400); RED BLOOD CELL COUNT 3.51 mill/uL (4.7-6.1); RED CELL DISTRIBUTION WIDTH 14.5 % (11.6-14.6)
[2020-02-19] MEDS: BLOOD SUGAR DIAGNOSTIC STRIP TEST SCH ×4 (06:29→21:00)
[2020-02-19 06:36] LABS: CHLORIDE 92 mEq/L (98-107)
[2020-02-19 06:40] LABS: PHOSPHORUS 4.5 mg/dL (2.5-4.9)
[2020-02-19] MEDS: INSULIN LISPRO 100 UNITS/ML SUBCUT SCH ×4 (06:45→21:00)
[2020-02-19 08:00] VITALS: BP 132/66
[2020-02-19 08:23] LABS: PLATELET ESTIMATE NORMAL
[2020-02-19] MEDS: DILTIAZEM HCL 120MG CAPSULE CD 24HR PO SCH ×2 (09:00→22:17)
[2020-02-19] MEDS: CALCIUM ACETATE 667MG CAPSULE PO SCH ×3 (09:00→19:11)
[2020-02-19] MEDS: MINOXIDIL 2.5MG TABLET PO SCH (09:08)
[2020-02-19] MEDS: INSULIN GLARGINE UD 100 UNITS/ML SYR SUBCUT SCH (11:02)
[2020-02-19 12:00] VITALS: BP 143/66
[2020-02-19] MEDS: DEXAMETHASONE 10 MG/ML VIAL IV SCH (19:11)
[2020-02-19 20:00] VITALS: BP 135/69
[2020-02-19] MEDS ORDERED: INSULIN REGULAR (HUMULIN R) UD 100 UNITS/ML SYR IV ONE (20:30)
[2020-02-19] MEDS ORDERED: INSULIN REGULAR (HUMULIN R) UD 100 UNITS/ML SYR SUBCUT NR (21:30)
[2020-02-19] MEDS: EPOETIN ALFA-EPBX 10,000 UNIT/ML VIAL SUBCUT SCH (22:16)
[2020-02-19] MEDS: DOXAZOSIN MESYLATE 4MG TABLET PO SCH (22:45)
[2020-02-20] VITALS: BP 145/68
[2020-02-20] MEDS: DIPHENHYDRAMINE 50MG/ML VIAL IV PRN ×4 (01:45→22:50)
[2020-02-20 04:00] VITALS: BP 108/63
[2020-02-20] MEDS: BLOOD SUGAR DIAGNOSTIC STRIP TEST SCH ×4 (06:21→21:51)
[2020-02-20] MEDS: LACTULOSE 20G/30ML UDC PO SCH ×3 (06:21→21:50)
[2020-02-20] MEDS: INSULIN LISPRO 100 UNITS/ML SUBCUT SCH ×4 (07:26→22:54)
[2020-02-20 08:00] VITALS: BP 158/71
[2020-02-20 08:47] LABS: HEMATOCRIT. 28.4 % (42.0-52.0); HEMOGLOBIN. 9.6 g/dL (14.0-18.0); MEAN CORPUSCULAR HEMOGLOBIN 27.5 pg (28.0-32.0); MEAN CORPUSCULAR VOLUME 81.6 fL (80.0-94.0); PLATELET 382 x1000/uL (130-400); RED BLOOD CELL COUNT 3.48 mill/uL (4.7-6.1); RED CELL DISTRIBUTION WIDTH 14.5 % (11.6-14.6)
[2020-02-20] MEDS: CALCIUM ACETATE 667MG CAPSULE PO SCH ×3 (10:16→18:29)
[2020-02-20] MEDS: CHOLECALCIFEROL (D3) 1000 UNIT TABLET PO SCH (10:16)
[2020-02-20] MEDS: MINOXIDIL 2.5MG TABLET PO SCH ×2 (10:17→18:29)
[2020-02-20] MEDS: DILTIAZEM HCL 120MG CAPSULE CD 24HR PO SCH ×2 (10:19→21:51)
[2020-02-20] MEDS: INSULIN GLARGINE UD 100 UNITS/ML SYR SUBCUT SCH (10:29)
[2020-02-20 12:00] VITALS: BP 136/67
[2020-02-20 16:00] VITALS: BP 136/63
[2020-02-20] MEDS ORDERED: SODIUM POLYSTYRENE SULFONATE 15 G/60 ML BOT PO NR (16:30)
[2020-02-20 16:47] LABS: PLATELET ESTIMATE NORMAL
[2020-02-20] MEDS: DEXAMETHASONE 10 MG/ML VIAL IV SCH (18:28)
[2020-02-20 20:00] VITALS: BP 135/67
[2020-02-20] MEDS: DOXAZOSIN MESYLATE 4MG TABLET PO SCH (21:51)
[2020-02-21] VITALS: BP 145/73
[2020-02-21 04:00] VITALS: BP 150/82
[2020-02-21] MEDS: LACTULOSE 20G/30ML UDC PO SCH ×4 (05:39→21:39)
[2020-02-21] MEDS: DIPHENHYDRAMINE 50MG/ML VIAL IV PRN ×3 (05:39→21:39)
[2020-02-21] MEDS: INSULIN LISPRO 100 UNITS/ML SUBCUT SCH ×4 (07:40→21:00)
[2020-02-21] MEDS: BLOOD SUGAR DIAGNOSTIC STRIP TEST SCH ×4 (07:43→21:00)
[2020-02-21 08:16] LABS: BASOPHILS % 0.4 % (0.0-2.0); EOSINOPHILS % 0.4 % (0.0-5.0); HEMATOCRIT. 25.9 % (42.0-52.0); HEMOGLOBIN. 8.7 g/dL (14.0-18.0); LYMPHOCYTES % 11.8 % (20.0-50.0); MEAN CORPUSCULAR HEMOGLOBIN 27.4 pg (28.0-32.0); MEAN CORPUSCULAR VOLUME 81.6 fL (80.0-94.0); MEAN PLATELET VOLUME 8.5 fl (7.4-10.4); MONOCYTES % 4.3 % (2.0-8.0); NEUTROPHILS % 83.1 % (40.0-76.0); PLATELET 434 x1000/uL (130-400); RED BLOOD CELL COUNT 3.17 mill/uL (4.7-6.1); RED CELL DISTRIBUTION WIDTH 14.4 % (11.6-14.6)
[2020-02-21 08:42] LABS: PHOSPHORUS 4.2 mg/dL (2.5-4.9)
[2020-02-21] MEDS: CALCIUM ACETATE 667MG CAPSULE PO SCH ×3 (08:52→19:12)
[2020-02-21] MEDS: DILTIAZEM HCL 120MG CAPSULE CD 24HR PO SCH ×2 (08:53→21:38)
[2020-02-21] MEDS: INSULIN GLARGINE UD 100 UNITS/ML SYR SUBCUT SCH (08:54)
[2020-02-21] MEDS: CHOLECALCIFEROL (D3) 1000 UNIT TABLET PO SCH (08:55)
[2020-02-21] MEDS: MINOXIDIL 2.5MG TABLET PO SCH ×2 (08:55→14:14)
[2020-02-21 12:00] VITALS: BP 151/81
[2020-02-21] MEDS: DEXAMETHASONE 10 MG/ML VIAL IV SCH (14:13)
[2020-02-21 16:00] VITALS: BP 145/79
[2020-02-21] MEDS ORDERED: SODIUM POLYSTYRENE SULFONATE 15 G/60 ML BOT PO NR (18:00)
[2020-02-21 20:00] VITALS: BP 145/69
[2020-02-21] MEDS: DOXAZOSIN MESYLATE 4MG TABLET PO SCH (21:39)
[2020-02-22] VITALS: BP 155/75
[2020-02-22] MEDS: DIPHENHYDRAMINE 50MG/ML VIAL IV PRN ×4 (03:16→20:05)
[2020-02-22 04:00] VITALS: BP 148/76
[2020-02-22] MEDS: LACTULOSE 20G/30ML UDC PO SCH ×3 (06:08→20:06)
[2020-02-22] MEDS: CALCIUM ACETATE 667MG CAPSULE PO SCH ×3 (06:08→18:36)
[2020-02-22] MEDS: BLOOD SUGAR DIAGNOSTIC STRIP TEST SCH ×4 (07:18→20:33)
[2020-02-22 07:25] LABS: PHOSPHORUS 5.4 mg/dL (2.5-4.9)
[2020-02-22 08:48] LABS: HEMATOCRIT. 25.8 % (42.0-52.0); HEMOGLOBIN. 8.7 g/dL (14.0-18.0); MEAN CORPUSCULAR HEMOGLOBIN 27.6 pg (28.0-32.0); MEAN CORPUSCULAR VOLUME 81.5 fL (80.0-94.0); MEAN PLATELET VOLUME 8.6 fl (7.4-10.4); PLATELET 467 x1000/uL (130-400); RED BLOOD CELL COUNT 3.17 mill/uL (4.7-6.1); RED CELL DISTRIBUTION WIDTH 14.6 % (11.6-14.6)
[2020-02-22 08:50] VITALS: BP 142/66
[2020-02-22] MEDS: MINOXIDIL 2.5MG TABLET PO SCH ×2 (09:00→17:00)
[2020-02-22] MEDS: DILTIAZEM HCL 120MG CAPSULE CD 24HR PO SCH ×2 (09:00→20:16)
[2020-02-22] MEDS: CHOLECALCIFEROL (D3) 1000 UNIT TABLET PO SCH (09:10)
[2020-02-22] MEDS: INSULIN LISPRO 100 UNITS/ML SUBCUT SCH ×4 (09:10→20:33)
[2020-02-22] MEDS: INSULIN GLARGINE UD 100 UNITS/ML SYR SUBCUT SCH (09:11)
[2020-02-22 11:11] VITALS: BP 155/76
[2020-02-22 14:27] LABS: PLATELET ESTIMATE INCREASED
[2020-02-22 15:59] VITALS: BP 121/85
[2020-02-22] MEDS ORDERED: SODIUM POLYSTYRENE SULFONATE 15 G/60 ML BOT PO PRN (16:00)
[2020-02-22 20:00] VITALS: BP 140/80
[2020-02-22] MEDS: EPOETIN ALFA-EPBX 10,000 UNIT/ML VIAL SUBCUT SCH (20:07)
[2020-02-22] MEDS: DOXAZOSIN MESYLATE 4MG TABLET PO SCH (20:16)
[2020-02-22] MEDS ORDERED: ALBUTEROL 6.7GM HFA INHALER ORI PRN (21:30)
[2020-02-23] VITALS: BP 144/73
[2020-02-23 04:00] VITALS: BP 123/57
[2020-02-23] MEDS: DIPHENHYDRAMINE 50MG/ML VIAL IV PRN ×2 (04:06→09:00)
[2020-02-23] MEDS: ALBUTEROL 6.7GM HFA INHALER ORI SCH ×4 (04:09→21:59)
[2020-02-23] MEDS: LACTULOSE 20G/30ML UDC PO SCH ×3 (05:58→22:00)
[2020-02-23] MEDS: CALCIUM ACETATE 667MG CAPSULE PO SCH ×3 (05:58→18:36)
[2020-02-23] MEDS: BLOOD SUGAR DIAGNOSTIC STRIP TEST SCH ×4 (05:59→21:00)
[2020-02-23] MEDS: DEXTROSE 50% WATER 50ML SYRINGE IV PRN ×2 (06:16→23:57)
[2020-02-23] MEDS: INSULIN LISPRO 100 UNITS/ML SUBCUT SCH ×4 (07:38→21:00)
[2020-02-23 08:00] VITALS: BP 132/74
[2020-02-23] MEDS: DILTIAZEM HCL 120MG CAPSULE CD 24HR PO SCH ×2 (09:01→21:52)
[2020-02-23] MEDS: CHOLECALCIFEROL (D3) 1000 UNIT TABLET PO SCH (09:01)
[2020-02-23] MEDS: MINOXIDIL 2.5MG TABLET PO SCH ×2 (09:01→17:00)
[2020-02-23 12:00] VITALS: BP 125/63
[2020-02-23] MEDS ORDERED: INSULIN GLARGINE UD 100 UNITS/ML SYR SUBCUT SCH (12:30)
[2020-02-23 16:00] VITALS: BP 129/67
[2020-02-23 20:00] VITALS: BP 135/71
[2020-02-23] MEDS: DOXAZOSIN MESYLATE 4MG TABLET PO SCH (21:53)
[2020-02-24] VITALS (10 sets, daily range): BP systolic 116–136; BP diastolic 60–74
[2020-02-24] MEDS: DIPHENHYDRAMINE 50MG/ML VIAL IV PRN ×3 (02:48→21:53)
[2020-02-24] MEDS: ALBUTEROL 6.7GM HFA INHALER ORI SCH (02:48)
[2020-02-24] MEDS: LACTULOSE 20G/30ML UDC PO SCH ×3 (05:49→22:00)
[2020-02-24] MEDS: BLOOD SUGAR DIAGNOSTIC STRIP TEST SCH ×4 (05:55→21:53)
[2020-02-24] MEDS: DEXTROSE 50% WATER 50ML SYRINGE IV PRN (05:58)
[2020-02-24] MEDS: INSULIN LISPRO 100 UNITS/ML SUBCUT SCH ×4 (06:43→21:00)
[2020-02-24 07:49] LABS: PHOSPHORUS 6.9 mg/dL (2.5-4.9)
[2020-02-24 08:12] LABS: BASOPHILS % 0.7 % (0.0-2.0); EOSINOPHILS % 0.9 % (0.0-5.0); LYMPHOCYTES % 15.2 % (20.0-50.0); MEAN CORPUSCULAR HEMOGLOBIN 27.8 pg (28.0-32.0); MEAN CORPUSCULAR VOLUME 81.7 fL (80.0-94.0); MEAN PLATELET VOLUME 8.3 fl (7.4-10.4); MONOCYTES % 1.8 % (2.0-8.0); NEUTROPHILS % 81.4 % (40.0-76.0); PLATELET 320 x1000/uL (130-400); RED BLOOD CELL COUNT 2.51 mill/uL (4.7-6.1); RED CELL DISTRIBUTION WIDTH 14.6 % (11.6-14.6)
[2020-02-24 08:26] LABS: HEMATOCRIT. 20.6 % (42.0-52.0)
[2020-02-24] MEDS: DILTIAZEM HCL 120MG CAPSULE CD 24HR PO SCH ×2 (11:04→21:51)
[2020-02-24] MEDS: CHOLECALCIFEROL (D3) 1000 UNIT TABLET PO SCH (11:05)
[2020-02-24] MEDS: MINOXIDIL 2.5MG TABLET PO SCH ×2 (11:05→17:00)
[2020-02-24] MEDS: CALCIUM ACETATE 667MG CAPSULE PO SCH ×2 (11:05→13:17)
[2020-02-24] MEDS ORDERED: ERGOCALCIFEROL 50000UNITS CAPSULE PO SCH (17:00)
[2020-02-24] MEDS: DOXAZOSIN MESYLATE 4MG TABLET PO SCH (21:52)
[2020-02-24] MEDS: EPOETIN ALFA-EPBX 10,000 UNIT/ML VIAL SUBCUT SCH (21:53)
[2020-02-25] VITALS: BP 116/68
[2020-02-25] MEDS: DIPHENHYDRAMINE 50MG/ML VIAL IV PRN ×3 (02:15→17:33)
[2020-02-25 04:00] VITALS: BP 115/61
[2020-02-25] MEDS: LACTULOSE 20G/30ML UDC PO SCH ×3 (06:00→22:00)
[2020-02-25] MEDS: BLOOD SUGAR DIAGNOSTIC STRIP TEST SCH ×4 (06:48→21:00)
[2020-02-25] MEDS: INSULIN LISPRO 100 UNITS/ML SUBCUT SCH ×3 (06:49→21:00)
[2020-02-25] MEDS: CALCIUM ACETATE 667MG CAPSULE PO SCH ×3 (06:49→17:38)
[2020-02-25 08:00] VITALS: BP 130/70
[2020-02-25 08:00] LABS: BASOPHILS % 0.8 % (0.0-2.0); EOSINOPHILS % 0.6 % (0.0-5.0); HEMATOCRIT. 25.8 % (42.0-52.0); HEMOGLOBIN. 8.8 g/dL (14.0-18.0); LYMPHOCYTES % 8.6 % (20.0-50.0); MEAN CORPUSCULAR HEMOGLOBIN 27.7 pg (28.0-32.0); MEAN CORPUSCULAR VOLUME 81.8 fL (80.0-94.0); MEAN PLATELET VOLUME 8.6 fl (7.4-10.4); MONOCYTES % 2.9 % (2.0-8.0); NEUTROPHILS % 87.1 % (40.0-76.0); PLATELET 283 x1000/uL (130-400); RED BLOOD CELL COUNT 3.16 mill/uL (4.7-6.1); RED CELL DISTRIBUTION WIDTH 14.5 % (11.6-14.6)
[2020-02-25] MEDS: DILTIAZEM HCL 120MG CAPSULE CD 24HR PO SCH ×2 (11:13→23:48)
[2020-02-25] MEDS: MINOXIDIL 2.5MG TABLET PO SCH ×2 (11:13→17:39)
[2020-02-25 12:00] VITALS: BP 123/60
[2020-02-25 16:00] VITALS: BP 128/68
[2020-02-25] MEDS ORDERED: CEFEPIME 1,000 MG in DEXTROSE 5% WATER 50 ML IV SCH (18:00)
[2020-02-25 20:00] VITALS: BP 129/69
[2020-02-25] MEDS ORDERED: VANCOMYCIN 1250MG in DEXTROSE 5% WATER 250ML IV SCH (20:00)
[2020-02-25 20:47] LABS: BASOPHILS % 1.1 % (0.0-2.0); EOSINOPHILS % 0.6 % (0.0-5.0); HEMATOCRIT. 24.3 % (42.0-52.0); HEMOGLOBIN. 8.1 g/dL (14.0-18.0); LYMPHOCYTES % 10.4 % (20.0-50.0); MEAN CORPUSCULAR HEMOGLOBIN 27.4 pg (28.0-32.0); MEAN CORPUSCULAR VOLUME 82.3 fL (80.0-94.0); MEAN PLATELET VOLUME 8.8 fl (7.4-10.4); MONOCYTES % 2.9 % (2.0-8.0); PLATELET 277 x1000/uL (130-400); RED BLOOD CELL COUNT 2.96 mill/uL (4.7-6.1); RED CELL DISTRIBUTION WIDTH 14.9 % (11.6-14.6)
[2020-02-25 20:53] LABS: CHLORIDE 96 mEq/L (98-107)
[2020-02-25] MEDS: DOXAZOSIN MESYLATE 4MG TABLET PO SCH (23:47)
[2020-02-26] VITALS: BP 139/70
[2020-02-26] MEDS: ALBUTEROL 6.7GM HFA INHALER ORI SCH ×2 (00:35→04:45)
[2020-02-26 04:00] VITALS: BP 126/64
[2020-02-26] MEDS ORDERED: ALTEPLASE 50MG/VIAL IV NR ×2 (05:30→05:40)
== END 2020-02-26 05:43 | disposition expired | DRG 871 ==
LOC: ER 10:50 → EDBEDREQTM 11:46 → EDBEDREQSVC 11:46 → EDBEDREQ 11:46 → 6WST 14:54 → EDBEDREQ 15:04 → EDBEDREQTM 15:04 → ENRESERV 22:07 → 8WST 02-11 10:45
PROVIDERS: ADMIT Hospitalist; ATTEND Hospitalist
PROC: 5A1D70Z Performance of Urinary Filtration, Intermittent, Less than 6 Hours Per Day (ICD-10-PCS; 2020-02-10)
PROC: 5A1D70Z Performance of Urinary Filtration, Intermittent, Less than 6 Hours Per Day (ICD-10-PCS; 2020-02-15)
PROC: 5A1D70Z Performance of Urinary Filtration, Intermittent, Less than 6 Hours Per Day (ICD-10-PCS; 2020-02-17)
PROC: 5A1D70Z Performance of Urinary Filtration, Intermittent, Less than 6 Hours Per Day (ICD-10-PCS; 2020-02-18)
PROC: 5A1D70Z Performance of Urinary Filtration, Intermittent, Less than 6 Hours Per Day (ICD-10-PCS; 2020-02-21)
PROC: 5A1D70Z Performance of Urinary Filtration, Intermittent, Less than 6 Hours Per Day (ICD-10-PCS; 2020-02-24)
PROC: 30233N1 Transfusion of Nonautologous Red Blood Cells into Peripheral Vein, Percutaneous Approach (ICD-10-PCS; 2020-02-24)
PROC: 5A1D70Z Performance of Urinary Filtration, Intermittent, Less than 6 Hours Per Day (ICD-10-PCS; 2020-02-25)
PROC: 5A12012 Performance of Cardiac Output, Single, Manual (ICD-10-PCS; principal; 2020-02-26)
PROC: 0BH18EZ Insertion of Endotracheal Airway into Trachea, Via Natural or Artificial Opening Endoscopic (ICD-10-PCS; 2020-02-26)
PROC: 5A1935Z Respiratory Ventilation, Less than 24 Consecutive Hours (ICD-10-PCS; 2020-02-26)
DX: A41.89 Other specified sepsis (principal); U07.1 COVID-19; N18.6 End stage renal disease; J12.89 Other viral pneumonia; I50.33 Acute on chronic diastolic (congestive) heart failure; J96.01 Acute respiratory failure with hypoxia; L02.01 Cutaneous abscess of face; E87.1 Hypo-osmolality and hyponatremia; I13.2 Hypertensive heart and chronic kidney disease with heart failure and with stage 5 chronic kidney disease, or end stage renal disease; L03.211 Cellulitis of face; K13.0 Diseases of lips; E11.22 Type 2 diabetes mellitus with diabetic chronic kidney disease; K74.60 Unspecified cirrhosis of liver; E87.5 Hyperkalemia; D72.810 Lymphocytopenia; R59.1 Generalized enlarged lymph nodes; D64.9 Anemia, unspecified; B97.89 Other viral agents as the cause of diseases classified elsewhere; E11.65 Type 2 diabetes mellitus with hyperglycemia; J45.909 Unspecified asthma, uncomplicated; L02.02 Furuncle of face; R59.0 Localized enlarged lymph nodes; Z66 Do not resuscitate; Z51.5 Encounter for palliative care; Z99.2 Dependence on renal dialysis; Z78.9 Other specified health status; Z87.891 Personal history of nicotine dependence; Z79.899 Other long term (current) drug therapy
CPT/HCPCS: 36415; 36600; 70487; 71045; 80048; 80053; 80202; 82140; 82270; 82375; 82550; 82728; 82805; 82962; 83036; 83605; 83615; 83735; 84100; 84145; 84484; 85025; 85027; 85379; 85384; 85651; 86038; 86140; 86592; 86850; 86900; 86920; 87070; 87426; 93005; 93970; 99291; C1893; J0692; J0885; J1100; J1200; J1815; J2405; J2543; J2997; J3370; J7030; J7040; J7060; P9016; U0003